=== PATIENT | female | born 1945 | race Caucasian/White ===

== ENCOUNTER 2018-06-23 00:59 | Outpatient (CLI) | payer MEDICARE, BC, SELFPAY ==
--- NOTE | 2018-06-23 11:30 | DI.MAMMO_ITS ---
SYMPTOMS/DIAGNOSIS: SCREENING, Z12.31 MAMMOGRAM: Mammograms were interpreted according to the usual protocol including computer analysis with CAD system, tomosynthesis and C view imaging. The breast tissue is radiodense. Numerous fibronodular opacities are demonstrated particularly in the left breast. There is no dominant mass. There are no suspicious calcifications. When compared with previous studies, there is some increased prominence of the asymmetric densities in the upper outer quadrant of the left breast. The possibility of interval development a malignancy lesion could not be excluded in this patient and further evaluation with mediolateral and craniocaudad compression spot films and ultrasound is recommended. Category 0. Breast density Category C. MQSA ASSESSMENT OF FINDINGS: Incomplete: Needs additional imaging evaluation. Category 0. Patient will receive a letter notifying them of these results. Bi-RADS category C. The breasts are heterogeneously dense, which may obscure small masses.
== END 2018-06-23 01:19 ==
PROVIDERS: PCP Internal Medicine; Visit Provider Nurse Practitioner Family
DX: Z12.31 Encounter for screening mammogram for malignant neoplasm of breast (principal); R92.8 Other abnormal and inconclusive findings on diagnostic imaging of breast
CPT/HCPCS: 77063; 77067

== ENCOUNTER 2018-06-30 01:04 | Outpatient (CLI) | payer MEDICARE, BC, SELFPAY ==
--- NOTE | 2018-06-30 15:18 | DI.COMBO_ITS ---
SYMPTOMS/DIAGNOSIS: F/U ABNORMAL MAMMO, ASYMMETRIC DENSITIES IN UPPER LEFT BREAST, R92.8 ADDITIONAL VIEWS OF THE LEFT BREAST AND LEFT BREAST ULTRASOUND: Additional images are interpreted according to the usual protocol including tomosynthesis and 2D imaging. Additional views of the left breast fail to show a persistent discrete mass. Breast density C. A left breast ultrasound was performed. Upper outer quadrant was evaluated sonographically. No cystic or solid masses are seen. IMPRESSION: No definite evidence for malignancy. A six-month follow-up left mammogram is requested for reevaluation. Category 3. The findings were discussed with the patient on the date of the examination. MQSA ASSESSMENT OF FINDINGS: Probably benign. Six month follow-up recommended. Category 3. Patient will receive a letter notifying them of these results. Bi-RADS category C. The breasts are heterogeneously dense, which may obscure small masses.
== END 2018-06-30 01:24 ==
PROVIDERS: PCP Internal Medicine; Visit Provider Nurse Practitioner Family
DX: Z12.31 Encounter for screening mammogram for malignant neoplasm of breast (principal); R92.8 Other abnormal and inconclusive findings on diagnostic imaging of breast; N64.59 Other signs and symptoms in breast
CPT/HCPCS: 76642; 77063; 77067

== ENCOUNTER 2019-01-03 00:08 | Outpatient (CLI) | payer MEDICARE, BC, SELFPAY ==
--- NOTE | 2019-01-03 09:10 | DI.MAMMO_ITS ---
SYMPTOM/DIAGNOSIS: ABNORMAL MAMMO LEFT BREAST R92.8 MAMMOGRAM: 01/03/19 RIGHT BREAST Mammograms were interpreted according to the usual protocol including computer analysis with CAD system, tomosynthesis and C view imaging. Today's mammogram was obtained to follow a questionable area of asymmetric density seen in the upper outer quadrant of left breast on previous mammogram of May 2018. No mass or clumped microcalcification seen. No significant interval change in comparison with previous examinations including May 2018. CONCLUSION: No specific evidence of malignancy at this time. I would suggest that routine screening examinations resume with a bilateral mammogram in 6 months. Category 3, breast density category C. MQSA ASSESSMENT OF FINDINGS: Probably benign. Six month follow-up recommended. Category 3. Patient will receive a letter notifying them of these results. Bi-RADS category C. The breasts are heterogeneously dense, which may obscure small masses.
== END 2019-01-03 00:28 ==
PROVIDERS: PCP Internal Medicine; Visit Provider Nurse Practitioner Family
DX: Z12.31 Encounter for screening mammogram for malignant neoplasm of breast (principal); R92.8 Other abnormal and inconclusive findings on diagnostic imaging of breast; N64.59 Other signs and symptoms in breast
CPT/HCPCS: 77061; 77065; G0279

== ENCOUNTER 2019-01-19 08:39 | Outpatient (REF) | payer MEDICARE, BC, SELFPAY ==
[2019-01-19 10:52] LABS: Abs Immature Grans 0.01 k/cumm (0.0-0.09); Absolute Basophil Count 0.02 k/cumm (0.0-0.2); Absolute Eosinophil Count 0.09 k/cumm (0.0-0.7); Absolute Lymphocyte Count 1.39 k/cumm (1.2-3.4); Absolute Monocyte Count 0.27 k/cumm (0.11-0.7); Absolute Neutrophil Count 2.51 k/cumm (1.2-6.7); Basophils % 0.5; Eosinophils % 2.1; HCT 40.7 % (36.0-46.0); HGB 13.7 g/dL (12.0-15.5); Immature Grans % 0.2; Lymphocytes % 32.4; Mean Corp. HGB Concentration 33.7 g/dL (32.0-36.0); Mean Corpuscular Hemoglobin 32.7 pg (27.0-33.0); Mean Corpuscular Volume 97.1 fL (80-95); Mean Platelet Volume 9.2 fL (8.0-11.0); Monocytes % 6.3; Neutrophils % 58.5; Platelet Count 249 x1000/uL (130-400); RBC 4.19 m/cumm (4.00-5.20); RBC Distribution Width 12.3 % (11.7-14.6); White Blood Cell Count 4.29 k/cumm (4.4-10.8)
[2019-01-19 12:49] LABS: Anion Gap 9.2 mmol/L (3-11); BUN 17 mg/dL (7-18); CO2 28.8 mmol/L (21.0-32.0); CREATININE 0.76 mg/dL (0.55-1.02); Calculated LDL 192 mg/dL; Chloride 103 mmol/L (98-107); Cholesterol 281 mg/dL (50-200); Glucose 89 mg/dL (70-100); HDL Cholesterol 69 mg/dL (40-60); Potassium 4.8 mmol/L (3.5-5.1); Sodium 141 mmol/L (136-145); Triglyceride 100 mg/dL (30-150)
[2019-01-19 13:09] LABS: Calcium 9.1 mg/dL (8.5-10.1)
== END 2019-01-19 08:59 ==
LOC: NCHCN 08:39
PROVIDERS: PCP Internal Medicine; Visit Provider Family Medicine
DX: E78.5 Hyperlipidemia, unspecified (principal); D72.819 Decreased white blood cell count, unspecified
CPT/HCPCS: 80048; 80061; 83721; 85025

== ENCOUNTER 2019-04-04 18:55 | Inpatient (IN) | payer MEDICARE, BC, SELFPAY ==
[2019-04-04] VITALS (20 sets, daily range): BP systolic 111–130; BP diastolic 62–89; PULSE 64–100; RESP 8–36; TEMP 36.6–36.7; O2SAT 90–96
--- NOTE | 2019-04-04 19:37 | DI.RAD_ITS ---
EXAM: XR CHEST 2V PA LATERAL INDICATION: chest pain. COMPARISON: CHEST 2 VIEWS PA,LAT from 08/05/2015 TECHNIQUE: 2D digital imaging was performed. FINDINGS: The lungs are well expanded and free of infiltrate. There is no pleural effusion cardiovascular stru ctures are intact. IMPRESSION: No evidence acute cardiopulmonary disease.
--- NOTE | 2019-04-04 19:38 | W.ED.GENAD ---
Discharge Plan Disposition Patient Disposition: [facility] INPATIENT Condition: Fair Discharge Details Chief Complaint: Chest Pain Clinical Impression: Chest pain Admit Date/Time: 04/06/19 16:39 Admit Provider: Kermit Ontiveros Attending Provider: Juanita Ferro Primary Care Provider: Clinton Corley ED Provider: Yosi Hewitt Hospital Course Hospital Course: Ms Godwin is a 73 year old female with PMHx of hyperlipidemia who was admitted to [facility] on 04/04/19 after an episode of exertional chest discomfort with feelings of shortness of breath, dizziness, and disorientation while walking a few steps up an incline with her dog. She normally walks 2 miles a day, so this discomfort was quite unusual for her. Her troponins were negative, and her EKG did not reveal acute ischemic changes. She was started on aspirin and a statin. On 04/05/19, she had an episode of 14 beats of Vtach while sitting in a chair, asymptomatic. Her echo revealed EF of 55-60%, hypokinesis of the entire anteroseptal and inferoseptal regions. During her exercise nuclear stress test, done on 04/06/19, the patient developed chest discomfort and shortness of breath at the same time as having Vtach at the rate of 150's for about 15 beats. The discomfort resolved with rest. A recommendation for transfer for a cardiac cath was made. The patient was started on heparin gtt. Her repeat troponin is pending at the time of this document being written. She is hemodynamically stable for transfer to [facility] for a cardiac cath where she was accepted by Dr De Santiago of cardiology. Care for patient as well as preparation of her transfer paperwork took 60 minutes on the day of transfer. We appreciate the assistance of the [facility] team. Discharge Data Discharge Date/Time-TO BE ENTERED AT DEPARTURE: 04/04/19 21:55 Medical Decision Making <Yosi Hewitt MD - Last Filed: 04/25/19 02:31> 19:43 --73-year-old female with history of hyperlipidemia, father with heart disease, here with exertional chest pressure this afternoon at 1700, now with continued abnormal sensation in her chest. Patient is saturating in mid 90s. She is not tachypneic and not tachycardic. Normotensive. Consider ACS. Screening ECG was reviewed and interpreted by me: Sinus rhythm 84 bpm, normal axis, no STEMI, nondiagnostic. Plan to check troponin. Patient is low risk by Wells criteria for pulmonary embolism. I will check a d-dimer. Consider less likely pneumothorax. Plan to obtain chest x-ray. 20:20 --chest x-ray reviewed and interpreted by radiology: No acute findings. Initial troponin negative. D-dimer pending. Will order aspirin. --D-dimer negative. I called and spoke with Dr. Ontiveros who will admit the patient for serial enzymes and rule out acs. <Cristi Bennett MD - Last Filed: 04/05/19 06:40> Patient admitted to hospitalist by Dr. Hewitt. HPI <Yosi Hewitt MD - Last Filed: 04/25/19 02:31> General Mode of arrival: ambulatory. Date/Time Provider Initiated Documentation: 04/04/19 19:11. Limitations to Documentation: no limitations. Information obtained by: patient. HPI Narrative: 73-year-old female with history of hyperlipidemia, family history of heart disease in father, here with chief complaint of chest pain. Patient notes chest pain started today after physical exertion. She notes that she was walking up an embankment and when she got to the top she felt a pressure-like sensation that felt like something pushing down in her chest. Discomfort was moderate to severe and lasted approximately 2 minutes and then resolved with rest. This occurred at about 5 PM. Since that time she notes that her chest does not hurt but that it just does not feel quite right. She had some associated mild shortness of breath with this episode. Of note, she does state that she is been somewhat fatigued today with decreased energy. Patient denies new or worsening leg swelling. No calf pain. No recent long distance travel. No recent surgery. She has had a mild cough recently. No fevers. Related Data Home Medications Medication Instructions Recorded Confirmed multivitamin [Daily Multi-Vitamin] 1 tab PO DAILY 05/20/15 04/04/19 aspirin 325 mg PO DAILY #0 tab 04/06/19 atorvastatin [Lipitor] 40 mg PO QPM #0 tab 04/06/19 heparin (porcine) in 5 % dex 25,000 units IV INFUSION #0 ml 04/06/19 metoprolol tartrate 12.5 mg PO BID #0 tab 04/06/19 Previous Rx's Medication Instructions Recorded aspirin 325 mg PO DAILY #0 tab 04/06/19 atorvastatin [Lipitor] 40 mg PO QPM #0 tab 04/06/19 heparin (porcine) in 5 % dex 25,000 units IV INFUSION #0 ml 04/06/19 metoprolol tartrate 12.5 mg PO BID #0 tab 04/06/19 Allergies Allergy/AdvReac Type Severity Reaction Status Date / Time acetaminophen [From Drkenneth] AdvReac neuropathy Unverified 04/04/19 19:04 chlorpheniramine AdvReac neuropathy Unverified 04/04/19 19:04 [From Kenn] oxymetazoline HCl AdvReac neuropathy Unverified 04/04/19 19:04 [From Kenn] pheniramine maleate AdvReac neuropathy Unverified 04/04/19 19:04 [From Kenn] phenylephrine HCl AdvReac neuropathy Unverified 04/04/19 19:04 [From Kenn] pseudoephedrine HCl AdvReac neuropathy Unverified 04/04/19 19:04 [From Kenn] General Stated Complaint: Chest Pain EZEQUIEL: 2 Review of Systems <Yosi Hewitt MD - Last Filed: 04/25/19 02:31> Review of Systems ROS Unobtainable: All systems reviewed & are unremarkable except as noted in HPI and below Constitutional Constitutional: Denies fever(s) Cardiovascular Cardiovascular: Reports as per HPI Respiratory Respiratory: Reports as per HPI Gastrointestinal Gastrointestinal: Denies abdominal pain PFSH <Yosi Hewitt MD - Last Filed: 04/25/19 02:31> Medical History Hyperlipidemia Obesity Osteoarthritis Varicosities of leg Surgical History Colonoscopy - MAC (05/26/17) Social History Smoking/Tobacco Use Status: Never Drug use: Never Do you feel safe at home: Yes Do you feel safe in your relationship?: Yes Exam <Yosi Hewitt MD - Last Filed: 04/25/19 02:31> Const General: cooperative and no acute distress HENMT Head: normocephalic Mouth: moist mucous membranes Eyes Conjunctivae: normal conjunctivae Sclera: normal sclerae Neck Neck: trachea midline and supple Resp Auscultation: clear to auscultation bilaterally, no rales, no rhonchi and no wheezes Cardio Jugular venous pressure: no JVD Rate: regular rate and not tachycardic Rhythm: regular rhythm Heart Sounds: no click, no gallops, no murmurs and no rubs GI Palpation: soft, not firm, no guarding, no masses, not rigid and nontender Skin General skin exam: no rashes or lesions noted Neuro General: alert, awake, oriented x3 and tone normal Extrem General: no calf tenderness and no edema Psych Appearance: grossly normal Mental Status: mental status grossly normal Course <Yosi Hewitt MD - Last Filed: 04/25/19 02:31> Vital Signs Vital signs: Vital Signs Temperature 36.6 C 04/04/19 18:59 Pulse 88 04/04/19 18:59 Respiratory Rate 18 04/04/19 18:59 Blood Pressure 130/89 04/04/19 18:59 Pulse Oximetry 95 04/04/19 18:59 Temperature 36.6 C 04/04/19 18:59 Pulse 88 04/04/19 18:59 Respiratory Rate 16 04/04/19 19:17 Respiratory Effort 04/04/19 19:17 Respiratory Depth Normal 04/04/19 19:17 Respiratory Pattern Normal 04/04/19 19:17 Blood Pressure 130/89 04/04/19 18:59 Blood Pressure Position Sitting 04/04/19 18:59 Pulse Oximetry 95 04/04/19 18:59 Oxygen Delivery Method Room Air 04/04/19 18:59 Oxygen Flow Rate 0 04/04/19 18:59 End Tidal Co2 3 04/04/19 18:59
[2019-04-04 19:53] LABS: Abs Immature Grans 0.02 k/cumm (0.0-0.09); Absolute Basophil Count 0.03 k/cumm (0.0-0.2); Absolute Eosinophil Count 0.11 k/cumm (0.0-0.7); Absolute Lymphocyte Count 2.23 k/cumm (1.2-3.4); Absolute Monocyte Count 0.41 k/cumm (0.11-0.7); Absolute Neutrophil Count 2.73 k/cumm (1.2-6.7); Basophils % 0.5; HCT 41.7 % (36.0-46.0); HGB 13.7 g/dL (12.0-15.5); Immature Grans % 0.4; Lymphocytes % 40.3; Mean Corp. HGB Concentration 32.9 g/dL (32.0-36.0); Mean Corpuscular Hemoglobin 32.2 pg (27.0-33.0); Mean Corpuscular Volume 97.9 fL (80-95); Monocytes % 7.4; Neutrophils % 49.4; Platelet Count 264 x1000/uL (130-400); RBC 4.26 m/cumm (4.00-5.20); White Blood Cell Count 5.53 k/cumm (4.4-10.8)
[2019-04-04 20:05] LABS: PTT Activated 24.7 sec (21.0-31.4)
[2019-04-04 20:06] LABS: ALT 23 U/L (14-59); AST 22 U/L (15-37); Albumin 4.2 g/dL (3.4-5.0); Alkaline Phosphatase 75 U/L (46-116); BUN 21 mg/dL (7-18); Bilirubin, Total 0.3 mg/dL (0.2-1.0); CREATININE 1.11 mg/dL (0.55-1.02); Calcium 9.1 mg/dL (8.5-10.1); Chloride 101 mmol/L (98-107); Estimated GFR 48.05 (mL/min/1.73m2); Glucose 104 mg/dL (70-100); Potassium 4.2 mmol/L (3.5-5.1); Sodium 139 mmol/L (136-145); Total Protein 7.9 g/dL (6.4-8.2)
[2019-04-04 20:08] LABS: Troponin I < 0.05 ng/mL (0.00-0.06)
--- NOTE | 2019-04-04 20:11 | DI.VRAD_ITS ---
PROCEDURE INFORMATION: Exam: XR Chest, 2 Views Exam date and time: 04/04/2019 7:39 PM Clinical history: 73 years old, female; Shortness of breath; Type not specified; Patient HX: SOB, chest pain since yesterday TECHNIQUE: Imaging protocol: XR of the chest Views: 2 views. COMPARISON: CR CHEST 2 VIEWS PA,LAT 08/05/2015 3:54 PM FINDINGS: Lungs: Unremarkable. No consolidation. Pleural space: Unremarkable. No pleural effusion. No pneumothorax. Heart/Mediastinum: Unremarkable. No cardiomegaly. Bones/joints: Unremarkable. IMPRESSION: No acute findings. Dictated and Authenticated by: Tyson Nunez MD. Ordering:KAROL Deluca MD
[2019-04-04 20:37] LABS: D-Dimer 449 ng/mlFEU (<500)
[2019-04-04] MEDS: Aspirin 325 MG TAB PO (20:41)
[2019-04-04] MEDS: Normal Saline Flush 10 ML SYR IVP (20:42)
--- NOTE | 2019-04-04 21:07 | W.PM.HP.N ---
Date of service: 04/04/19 Time of Service: 21:08 Assessment and Plan Assessment and plan (1) Chest pain: Status: Acute Assessment and plan: Chest pain, fairly good story for possible ACS (new onset angina). No evidence of active ischemia. Will trend enzymes. If negative would advise ETT. History of Present Illness History of Present Illness Chief Complaint: Chest pain Narrative: 73 female comes in with episode of exertional CP (heaviness) earlier this evening, occurred while walking dog up a modest incline, and associated with SOB. No nausea or diaphoresis. resolved with rest, though unclear if this was within a few minutes or more a half hour. At any rate came to ER, initial w/u negative, including normal CXR, normal EKG and negative troponin. No recurrence of pain. Admitted for further management. Did receive 325 ASA here in ER. Review of Systems Review of Systems ROS Unobtainable: All systems reviewed & are unremarkable except as noted in HPI and below PFSH Medical History Hyperlipidemia Obesity Osteoarthritis Varicosities of leg Surgical History Colonoscopy - MAC (05/26/17) Social History Smoking/Tobacco Use Status: Never Drug use: Never Do you feel safe at home: Yes Do you feel safe in your relationship?: Yes Meds Home Medications and Allergies Home Medications Medication Instructions Recorded Confirmed Type multivitamin [Multi-Vitamin Daily] 1 tab PO DAILY 05/20/15 04/04/19 History ibuprofen [Motrin Ib] 200 mg PO DAILY PRN 11/19/16 04/04/19 History Allergies Allergy/AdvReac Type Severity Reaction Status Date / Time acetaminophen [From Kenn] AdvReac neuropathy Unverified 04/04/19 19:04 chlorpheniramine AdvReac neuropathy Unverified 04/04/19 19:04 [From Kenn] oxymetazoline HCl AdvReac neuropathy Unverified 04/04/19 19:04 [From Kenn] pheniramine maleate AdvReac neuropathy Unverified 04/04/19 19:04 [From Kenn] phenylephrine HCl AdvReac neuropathy Unverified 04/04/19 19:04 [From Kenn] pseudoephedrine HCl AdvReac neuropathy Unverified 04/04/19 19:04 [From Kenn] Exam Narrative Exam Narrative: 119/66, 77, 36.7, 10-15, 96% RA. HEENT AT/NC; neck supple, no JVD; lungs clear; heart RRR w/O m//r/g; abdomen soft NT; extremities pulse 2+/=; neuro non-focal Results Labs Result diagrams: 04/04/19 19:15 04/04/19 19:15 Labs: Laboratory Results - last 24 hr 04/04/19 04/04/19 04/04/19 19:15 19:15 19:15 WBC 5.53 RBC 4.26 Hgb 13.7 Hct 41.7 MCV 97.9 H MCH 32.2 MCHC 32.9 RDW 12.0 Plt Count 264 MPV 9.0 Immature Gran % 0.4 Neutrophils % 49.4 Lymphocytes % 40.3 Monocytes % 7.4 Eosinophils % 2.0 Basophils % 0.5 Absolute Neutrophils 2.73 Absolute Lymphocytes 2.23 Absolute Monocytes 0.41 Absolute Eosinophils 0.11 Absolute Basophils 0.03 APTT 24.7 D-Dimer 449 Sodium 139 Potassium 4.2 Chloride 101 Carbon Dioxide 29.0 Anion Gap 9.0 BUN 21 H Creatinine 1.11 H Estimated GFR/1.73 m2 48.05 Glucose 104 H Calcium 9.1 Total Bilirubin 0.3 AST 22 ALT 23 Alkaline Phosphatase 75 Troponin I < 0.05 Total Protein 7.9 Albumin 4.2 Last Vital Signs Temp 36.7 C 04/04/19 20:28 Pulse 84 04/04/19 20:30 Resp 10 L 04/04/19 20:50 BP 119/66 04/04/19 20:30 Pulse Ox 96 04/04/19 20:50
[2019-04-04 23:12] LABS: Troponin I < 0.05 ng/mL (0.00-0.06)
[2019-04-05] VITALS (36 sets, daily range): BP systolic 107–130; BP diastolic 65–86; PULSE 60–115; RESP 9–26; TEMP 36.9–37; O2SAT 92–95
[2019-04-05 07:12] LABS: Troponin I < 0.05 ng/mL (0.00-0.06)
--- NOTE | 2019-04-05 08:51 | INITIAL_ITS ---
Care Management Initial Assess REASON FOR HOSPITALIZATION:: Chest Pain PAST MEDICAL HISTORY/PAST SURGICAL HISTORY:: Hyperlipidemia, Obesity, Osteoarthritisi, varicosities of leg, colonoscopy PREVIOUS FUNCTIONAL STATUS/SOCIAL/FAMILY SUPPORTS:: Leonie resides in [facility] with her , Mason. 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 She enjoys gardening, caring for her two horses and two boarding horses as well as her dogs. Her , Mason is a retired fire truck driver and both are independent in the community. Their daughter, Brinda resides in [place], [place] and their son resides in [facility]. Leonie reports seeing him a few times a year. CURRENT FUNCTIONAL STATUS:: Leonie is sitting up in her chair when meets with her. She fully engages in converstation and is knowledgable about her treatment plan. ADVANCE DIRECTIVES:: None on file at [facility]. Has patient been provided with information about the portal?: Yes CODE STATUS:: Full Code INSURANCE COVERAGE / FINANCIAL ISSUES:: Medicaid CURRENT HOME/COMMUNITY SERVICES/EQUIPMENT:: No current services or equipment at this time. PRIMARY CARE PHYSICIAN:: Clinton Corley MD POTENTIAL DISCHARGE NEEDS:: ECHO, possible [facility] outpatient appointment. PATIENT/FAMILY EDUCATION NEEDS:: Review discharge instructions, discuss Ask Me Three. ANTICIPATED BARRIERS TO DISCHARGE:: None identified. TRANSPORTATION:: Via private vehicle with her , Mason. PLAN:: Leonie will return home when ready per . She will follow up with her PCP and outpatient follow up plan as prescribed. She will transport via private vehicle with her , Mason.
--- NOTE | 2019-04-05 08:53 | W.PM.PROGNOT ---
Date of Service Date of service: 04/05/19 Time of Service: 08:53 Assessment and Plan Assessment and plan (1) Chest pain: Status: Acute Assessment and plan: Exertional. Talking with patient, she also felt dizzy and disoriented when this occured. Given the fact that the patient had a 14 beat run of Vtach, no electrolyte abnormalities on labs, negative troponins, I think it is important to look at the echo, and if there are wall motion abnormalities, bypass stress test and go straight to cardiac cath. Attempting to get the echo today. For now, continue asa, add statin. Continue to monitor on tele. (2) Nonsustained ventricular tachycardia: Status: Acute Assessment and plan: Lyes ok. Await echo read. Continue to monitor on tele. May require a cardiac cath and, if recurs/is sustained, an AICD. (3) Dyslipidemia: Status: Acute Assessment and plan: Start atorvastatin (4) DVT prophylaxis: Status: Acute Assessment and plan: Enoxaparin (5) Discharge planning issues: Status: Acute Assessment and plan: Full code Dispo depends on cardiac workup. Subjective Subjective Interval history since last seen: Admitted with chest heaviness. in SR 60-70's. No more CP since arrival. Trops neg. VSS. No cough. Had an episode of 14 beats of Vtach while awake, asymptomatic. Exam Narrative Exam Narrative: General: very pleasant elderly female, A&ox3, sitting comfortably in a chair HEENT: EOMI, MMM Heart: RRR, no m/r/g Lungs; CTAB GI: abdomen is soft, nontender, nondistended Extremities: no e/c/c BLE's Objective Objective Clinical Data: Abnormal lab results 04/04/19 04/04/19 Range/Units 19:15 19:15 MCV 97.9 H (80-95) fL BUN 21 H (7-18) mg/dL Creatinine 1.11 H (0.55-1.02) mg/dL Glucose 104 H (70-100) mg/dL Vital Signs Temperature 36.7 C 04/04/19 21:45 Temperature Source Temporal Artery Scan 04/04/19 21:45 Pulse 77 04/05/19 00:06 Pulse 69 04/05/19 00:06 Respiratory Rate 17 04/05/19 00:06 Respiratory Effort Non-Labored 04/04/19 21:45 Respiratory Depth Normal 04/04/19 21:45 Respiratory Pattern Normal 04/04/19 21:45 Blood Pressure 118/86 04/05/19 00:06 Blood Pressure Mean 94 04/05/19 00:06 Blood Pressure Position Sitting 04/04/19 18:59 Pulse Oximetry 95 04/04/19 21:45 Oxygen Delivery Method Room Air 04/04/19 21:45 Oxygen Flow Rate 0 04/04/19 21:45 End Tidal Co2 3 04/04/19 18:59 Pain Level 0 04/04/19 21:45 Intake & Output 04/04/19 04/04/19 04/05/19 11:59 23:59 11:59 Intake Total 400 / 400 Output Total 500 / 500 500 / 500 Balance -500 / -500 -100 / -100 Weight 70.6 kg 70.2 kg Intake: Oral 400 / 400 Output: Urine 500 / 500 500 / 500 Other: Urine Color Yellow Yellow Urine Appearance Clear Clear Voiding Methods Bedside Commode Laboratory Results WBC 5.53 k/cumm (4.4-10.8) 04/04/19 19:15 RBC 4.26 m/cumm (4.00-5.20) 04/04/19 19:15 Hgb 13.7 g/dL (12.0-15.5) 04/04/19 19:15 Hct 41.7 % (36.0-46.0) 04/04/19 19:15 MCV 97.9 fL (80-95) H 04/04/19 19:15 MCH 32.2 pg (27.0-33.0) 04/04/19 19:15 MCHC 32.9 g/dL (32.0-36.0) 04/04/19 19:15 RDW 12.0 % (11.7-14.6) 04/04/19 19:15 Plt Count 264 x1000/uL (130-400) 04/04/19 19:15 MPV 9.0 fL (8.0-11.0) 04/04/19 19:15 Immature Gran % 0.4 04/04/19 19:15 Neutrophils % 49.4 04/04/19 19:15 Lymphocytes % 40.3 04/04/19 19:15 Monocytes % 7.4 04/04/19 19:15 Eosinophils % 2.0 04/04/19 19:15 Basophils % 0.5 04/04/19 19:15 Absolute Neutrophils 2.73 k/cumm (1.2-6.7) 04/04/19 19:15 Absolute Lymphocytes 2.23 k/cumm (1.2-3.4) 04/04/19 19:15 Absolute Monocytes 0.41 k/cumm (0.11-0.7) 04/04/19 19:15 Absolute Eosinophils 0.11 k/cumm (0.0-0.7) 04/04/19 19:15 Absolute Basophils 0.03 k/cumm (0.0-0.2) 04/04/19 19:15 APTT 24.7 sec (21.0-31.4) 04/04/19 19:15 D-Dimer 449 ng/mlFEU (<500) 04/04/19 19:15 Sodium 139 mmol/L (136-145) 04/04/19 19:15 Potassium 4.2 mmol/L (3.5-5.1) 04/04/19 19:15 Chloride 101 mmol/L (98-107) 04/04/19 19:15 Carbon Dioxide 29.0 mmol/L (21.0-32.0) 04/04/19 19:15 Anion Gap 9.0 mmol/L (3-11) 04/04/19 19:15 BUN 21 mg/dL (7-18) H 04/04/19 19:15 Creatinine 1.11 mg/dL (0.55-1.02) H 04/04/19 19:15 Estimated GFR/1.73 m2 48.05 (mL/min/1.73m2) 04/04/19 19:15 Glucose 104 mg/dL (70-100) H 04/04/19 19:15 Calcium 9.1 mg/dL (8.5-10.1) 04/04/19 19:15 Total Bilirubin 0.3 mg/dL (0.2-1.0) 04/04/19 19:15 AST 22 U/L (15-37) 04/04/19 19:15 ALT 23 U/L (14-59) 04/04/19 19:15 Alkaline Phosphatase 75 U/L (46-116) 04/04/19 19:15 Troponin I < 0.05 ng/mL (0.00-0.06) 04/05/19 06:20 Total Protein 7.9 g/dL (6.4-8.2) 04/04/19 19:15 Albumin 4.2 g/dL (3.4-5.0) 04/04/19 19:15
[2019-04-05 11:07] LABS: Anion Gap 10.6 mmol/L (3-11); BUN 14 mg/dL (7-18); CO2 26.4 mmol/L (21.0-32.0); Chloride 106 mmol/L (98-107); FREE T4 0.87 ng/dL (0.76-1.46); Glucose 95 mg/dL (70-100); Magnesium 2.3 mg/dL (1.8-2.4); Potassium 4.3 mmol/L (3.5-5.1); Sodium 143 mmol/L (136-145); TSH 3.09 uIU/mL (0.36-3.74)
[2019-04-05 11:21] LABS: Hemoglobin A1C 5.7 % (4.5-6.2)
[2019-04-05 11:44] LABS: Calculated LDL 162 mg/dL; Cholesterol 245 mg/dL (50-200); HDL Cholesterol 64 mg/dL (40-60); Triglyceride 95 mg/dL (30-150)
[2019-04-05] MEDS: Aspirin E.C. 325 MG TABEC PO (13:46)
[2019-04-05] MEDS: Enoxaparin 40 MG/0.4 ML SYR SC (14:45)
--- NOTE | 2019-04-05 15:36 | DI.US_ITS ---
EXAM: US EXTREMITY VENOUS BI CLINICAL HISTORY: edema BLE's, concern for DVT. TECHNIQUE: Ultrasound performed using standard protocol. COMPARISON: US breast LT limited from 06/30/2018 FINDINGS: A bilateral leg ultrasound was obtained. There is no evidence of right or left DVT.
--- NOTE | 2019-04-05 16:07 | DI.US_ITS ---
APPROVED REPORT EXAM: Comprehensive 2D, Doppler, and color-flow Echocardiogram Patient Location: In-Patient Health Care Assistant: TINO Faith (AE) Indications: chest pain ? WMA Left Ventricle The left ventricle is normal size. The left ventricular systolic function is normal. The left ventric ular ejection fraction is within the normal range. There is normal left ventricular wall thickness. R egional wall motion abnormalities are noted: Hypokinesis of the entire anteroseptal and inferoseptal region. All other segments are within normal limits There is grade 1 diastolic dysfunction LVEF is 55 -60%. Right Ventricle The right ventricle is normal size. The right ventricular systolic function is normal. Atria The left atrium size is normal. The right atrium size is normal. Aortic Valve The aortic valve is normal in structure. There is no aortic valvular stenosis. Mild aortic regurgitat ion. Mitral Valve The mitral valve is normal in structure. No evidence of mitral valve stenosis. There is no mitral tyler ve regurgitation noted. Tricuspid Valve The tricuspid valve is normal in structure. Mild tricuspid regurgitation. TR V-max=3.1 m/s TR peak gr adient=38.3 mmHg RVSP mildly elevated but likely normal for age. Great Vessels The aortic root is normal in size. The IVC is normal in size and collapses >50% with inspiration. Pericardium There is no pericardial effusion. 2D Dimensions IVSd 1.0 cm F: 0.6-1.0 LA Volume Index A4C 20.0 mL/m2 PWd 1.2 cm F: 0.6 - 1.0 LA Area A4C 14.0 cm2 LVDd 3.8 cm F: 3.9 - 5.3 LVDs 2.6 cm F: 2.2 - 3.5 Aortic Root 3.2 cm F: 2.7 - 3.3 LVOT 1.8 cm (M/F) 1.5-2.5 Ascending Aorta 3.7 cm F: 2.3 - 3.1 LVEF (Patel's) 58.8 % F: 54 - 74 FS 30.1 % LV Diastology E Decel Time 303.0 (160-240 msec) E/A Ratio 0.5 MED E' 0.0 (<0.07 m/s) LV E/e MED 8.9 (>14) LAT E' 0.1 (<0.1 m/s) LV E/e LAT 6.4 (>14) Aortic Valve LVOT Peak Ajith. 0.8 m/s LVOT Peak Gr. 2.5 mmHg LVOT Mean Gr. 1.6 mmHg LVOT VTI 0.2 m PARAMJIT (VTI) 2.3 (2.5-4.5 cm2) PARAMJIT (VTI) Index 1.3 cm/m2 Mitral Valve MV A Velocity 0.7 (0.4-1.3 m/s) E/A Ratio 0.5 MV Decel. Time 302.5 (160-240 msec) MV PHT 87.7 msec MVA PHT 2.5 cm2 Pulmonary Valve MD End VMAX 111.8 cm/s Tricuspid Valve TR P. Velocity 3.1 m/s TR P. Gradient 38.3 mmHg Conclusion Left Ventricle : The left ventricle is normal size. There is normal left ventricular wall thickness. There is grade 1 diastolic dysfunction. LVEF is 55-60%. Regional wall motion abnormalities are noted: Hypokinesis of the entire anteroseptal and inferoseptal regions. All other segments are within normal limits Right Ventricle : The right ventricle is normal size. The right ventricular systolic function is norm al. Atria : The left atrium size is normal. The right atrium size is normal. Aortic Valve : The aortic valve is normal in structure. There is no aortic valvular stenosis. Mild ao rtic regurgitation. Mitral Valve : The mitral valve is normal in structure. There is no mitral valve regurgitation noted. No evidence of mitral valve stenosis. Tricuspid Valve : The tricuspid valve is normal in structure. Mild tricuspid regurgitation. TR V-max= 3.1 m/s TR peak gradient=38.3 mmHg RVSP mildly elevated but likely normal for age. Great Vessels : The aortic root is normal in size. The IVC is normal in size and collapses >50% with inspiration. Pericardium : There is no pericardial effusion.
--- NOTE | 2019-04-05 16:50 | PHARADMIT ---
Admission Pharmacy Clinical Review Chest Pain Code Status Full Code Current Weight 70.2 kg Renally Cleared and Narrow Therapeutic Index Meds CrCl ~47.3 QTc Value / Action Taken QTc 416 BP Control, Fever BP 115/67 Electrolytes reviewed Na 143, K+ 4.3, Mag 2.3 DVT Prophylaxis LMWH 40mg q2h Opiate Usage / Scheduled Bowel Regimen Ordered Plt/SCr for Heparin / Enoxaparin Plt 264 Scr 0.9 INR for Warfarin H/H stable, WBC/Bands H/H 13.7/41.7, WBC 5.53 Antibiotic appropriateness Cultures and Sensitivities Surgical ABX d/c within 24 hr DM control / Insulin Dosing Heart Failure (Check EF%) (SIN's, B-Block, Diuretics) IV to PO Switch Home Meds Reviewed Home Meds Not Ordered Comments ASA, atorvastatin started Awaiting ECHO
[2019-04-05] MEDS: Atorvastatin 40 MG TAB PO (19:41)
[2019-04-05] MEDS: Normal Saline Flush 10 ML SYR IVP (19:42)
[2019-04-06] VITALS (8 sets, daily range): BP systolic 105–128; BP diastolic 63–69; PULSE 73–97; RESP 12–30; TEMP 36.4; O2SAT 94
[2019-04-06 07:07] LABS: Anion Gap 7.8 mmol/L (3-11); BUN 19 mg/dL (7-18); CO2 28.2 mmol/L (21.0-32.0); CREATININE 0.88 mg/dL (0.55-1.02); Calcium 8.9 mg/dL (8.5-10.1); Chloride 105 mmol/L (98-107); Glucose 97 mg/dL (70-100); Magnesium 2.3 mg/dL (1.8-2.4); Potassium 4.4 mmol/L (3.5-5.1); Sodium 141 mmol/L (136-145)
--- NOTE | 2019-04-06 08:48 | W.PM.PROGNOT ---
Date of Service Date of service: 04/06/19 Time of Service: 08:48 Subjective Subjective Interval history since last seen: No further episodes of Vtach. Has septal wall motion abnormalities. For stress test today. EF preserved. Objective Objective Clinical Data: Abnormal lab results 04/05/19 04/06/19 Range/Units 06:20 06:15 BUN 19 H (7-18) mg/dL Total Cholesterol 245 H (50-200) mg/dL HDL Cholesterol 64 H (40-60) mg/dL Vital Signs Temperature 36.9 C 04/05/19 19:49 Temperature Source Temporal Artery Scan 04/05/19 19:49 Pulse 66 04/05/19 23:18 Pulse Rhythm Regular 04/05/19 23:00 Pulse 69 04/05/19 23:18 Respiratory Rate 9 L 04/05/19 23:18 Respiratory Effort Non-Labored 04/05/19 23:00 Respiratory Depth Normal 04/05/19 23:00 Respiratory Pattern Normal 04/05/19 23:00 Blood Pressure 130/70 04/05/19 23:18 Blood Pressure Mean 83 04/05/19 23:18 Blood Pressure Position Sitting 04/04/19 18:59 Pulse Oximetry 92 L 04/05/19 19:52 Oxygen Delivery Method Room Air 04/05/19 19:49 Oxygen Flow Rate 0 04/05/19 19:49 End Tidal Co2 3 04/04/19 18:59 Pain Level 0 04/05/19 19:49 Intake & Output 04/05/19 04/05/19 04/06/19 11:59 23:59 11:59 Intake Total 860 / 1300 440 / 1300 Output Total 900 / 1750 850 / 1750 700 / 700 Balance -40 / -450 -410 / -450 -700 / -700 Weight 70.2 kg 69.6 kg Intake: Oral 860 / 1300 440 / 1300 Output: Urine 900 / 1750 850 / 1750 700 / 700 Other: Urine Color Yellow Yellow Yellow Urine Appearance Clear Clear Clear Urine Odor None Stool Size Small Stool Characteristics Soft Voiding Methods Bedside Commode Laboratory Results WBC 5.53 k/cumm (4.4-10.8) 04/04/19 19:15 RBC 4.26 m/cumm (4.00-5.20) 04/04/19 19:15 Hgb 13.7 g/dL (12.0-15.5) 04/04/19 19:15 Hct 41.7 % (36.0-46.0) 04/04/19 19:15 MCV 97.9 fL (80-95) H 04/04/19 19:15 MCH 32.2 pg (27.0-33.0) 04/04/19 19:15 MCHC 32.9 g/dL (32.0-36.0) 04/04/19 19:15 RDW 12.0 % (11.7-14.6) 04/04/19 19:15 Plt Count 264 x1000/uL (130-400) 04/04/19 19:15 MPV 9.0 fL (8.0-11.0) 04/04/19 19:15 Immature Gran % 0.4 04/04/19 19:15 Neutrophils % 49.4 04/04/19 19:15 Lymphocytes % 40.3 04/04/19 19:15 Monocytes % 7.4 04/04/19 19:15 Eosinophils % 2.0 04/04/19 19:15 Basophils % 0.5 04/04/19 19:15 Absolute Neutrophils 2.73 k/cumm (1.2-6.7) 04/04/19 19:15 Absolute Lymphocytes 2.23 k/cumm (1.2-3.4) 04/04/19 19:15 Absolute Monocytes 0.41 k/cumm (0.11-0.7) 04/04/19 19:15 Absolute Eosinophils 0.11 k/cumm (0.0-0.7) 04/04/19 19:15 Absolute Basophils 0.03 k/cumm (0.0-0.2) 04/04/19 19:15 APTT 24.7 sec (21.0-31.4) 04/04/19 19:15 D-Dimer 449 ng/mlFEU (<500) 04/04/19 19:15 Sodium 141 mmol/L (136-145) 04/06/19 06:15 Potassium 4.4 mmol/L (3.5-5.1) 04/06/19 06:15 Chloride 105 mmol/L (98-107) 04/06/19 06:15 Carbon Dioxide 28.2 mmol/L (21.0-32.0) 04/06/19 06:15 Anion Gap 7.8 mmol/L (3-11) 04/06/19 06:15 BUN 19 mg/dL (7-18) H 04/06/19 06:15 Creatinine 0.88 mg/dL (0.55-1.02) 04/06/19 06:15 Estimated GFR/1.73 m2 >= 60.00 (mL/min/1.73m2) 04/06/19 06:15 Glucose 97 mg/dL (70-100) 04/06/19 06:15 Hemoglobin A1c 5.7 % (4.5-6.2) 04/04/19 19:15 Calcium 8.9 mg/dL (8.5-10.1) 04/06/19 06:15 Magnesium 2.3 mg/dL (1.8-2.4) 04/06/19 06:15 Total Bilirubin 0.3 mg/dL (0.2-1.0) 04/04/19 19:15 AST 22 U/L (15-37) 04/04/19 19:15 ALT 23 U/L (14-59) 04/04/19 19:15 Alkaline Phosphatase 75 U/L (46-116) 04/04/19 19:15 Troponin I < 0.05 ng/mL (0.00-0.06) 04/05/19 06:20 Total Protein 7.9 g/dL (6.4-8.2) 04/04/19 19:15 Albumin 4.2 g/dL (3.4-5.0) 04/04/19 19:15 Triglycerides 95 mg/dL (30-150) 04/05/19 06:20 Total Cholesterol 245 mg/dL (50-200) H 04/05/19 06:20 LDL Cholesterol, Calc 162 mg/dL 04/05/19 06:20 HDL Cholesterol 64 mg/dL (40-60) H 04/05/19 06:20 TSH 3.09 uIU/mL (0.36-3.74) 04/05/19 06:20 Free T4 0.87 ng/dL (0.76-1.46) 04/05/19 06:20
[2019-04-06] MEDS: Aspirin E.C. 325 MG TABEC PO (09:21)
--- NOTE | 2019-04-06 12:00 | DI.NM_ITS ---
APPROVED REPORT Exam: Exercise Treadmill Patient Location: In-Patient Room/Bed: 222 Stress Nurse: Mona Healy RN Rhythm: Sinus Indications: Exertional chest pain. Medical History Medical History: Hyperlipidemia Allergies: Acetaminophen. Chlorpheniramine. Oxymetazoline. Phenylephrine. Pseudophedrin. Cardiac Risk Factors: FHX of CAD, Hyperlipidemia Pretest Chest Pain Characteristics: Exertional Chest pain Exercise History: Physically active Stress Test Details Test: Exercise stress testing was performed using a Michael protocol. Nuclear Acquisition: Rest Tc-99m/Stress Tc-99m 1 day Rest Isotope: Tc-99m Sestamibi. Dose: 12.0 Date: 04/06/2019 Injection Time: 1222 Stress Isotope: Tc-99m Sestamibi. Dose: 35.8 Date: 04/06/2019 Injection Time: 1440 HR Resting HR: 73 bpm Max Heart Rate (APMHR): 146 bpm Max HR Achieved: 158 bpm Target HR (85% APMHR): 124 bpm % of APMHR: 108 Recovery HR: 79 bpm HR response to stress: Accelerated HR response to stress BP Resting BP: 130/74 mmHg Max BP: 150/72 mmHg Recovery BP: 120/70 mmHg BP response to stress: Normal blood pressure response to stress. ECG Resting ECG: Sinus Rhythm, low voltage, precordial leads. Stress ECG: Sinus tachycardia with 10-15 beat runs of wide monomorphic ventricular beats. ST Change: No significan ST segment changes Arrhythmia: Non-sustained VT Recovery ECG: Sinus Rhythm Recovery ST Change: Normal Recovery Arrhythmia: Runs of Ventricular tachycardia subsided by 2 minutes recovery period Clinical Reason for Termination: Chest pain/Anginal equivalent Stress Symptoms: Chest pain, Dyspnea Exercise duration: 4 min Highest Stage Achieved: Stage 2: 2.5 mph at 12% grade. Exercise capacity: 5.81 METs Overall Exercise Capacity for Age: Average Scale: Active Angina Score: Exercise-Limiting Stress ECG Conclusion 1. The patient showed good exercise capacity 2. This represents a maximal effort study 3. The patient developed symptomatic runs of ventricular tachycardia with HR in the 150s at stage two of Michael protocol exercise. This was accompanied by chest discomfort and shortness of breath. The t est was stopped and symptoms resolved 2 minutes into recovery. 4. The stress ECG portion of the study is suggestive of ischemia MPI Conclusion The imaging portion of the study was normal. There was no TID and no wall motion abnormalities. While the imaging portion the study did not show ischemia, the significant run of VT with exercise in addition to reproduction of symptoms are concerning. This represents a positive stress test. Recommendation: Recommend proceeding to diagnostic catheterization
--- NOTE | 2019-04-06 14:48 | PDOC.CMDIS ---
Care Management Discharge Reason for Hospitalization: Chest Pain Discharge Plan: Leonie will return home when ready per MD. She will follow up with her PCP and outpatient follow up plan as prescribed. She will transport via private vehicle with her , Mason.
--- NOTE | 2019-04-06 15:14 | PDOC.CMDIS ---
LACE Index Scoring Tool - Questions: Length of Stay (in days): 2 Acuity (Admit via E.D.?): Yes E.D. Visits: 1 - Answers: Total Score: 6 Risk of Readmission: Low Risk Care Management Discharge Reason for Hospitalization: Chest Pain Discharge Plan: Leonie will return home when ready per MD. She will follow up with her PCP and outpatient follow up plan as prescribed. She will transport via private vehicle with her , Mason. Patient/Family Education Needs: Review discharge instructions, discuss Ask Me Three.
[2019-04-06] MEDS: Enoxaparin 40 MG/0.4 ML SYR SC (15:18)
--- NOTE | 2019-04-06 16:39 | DSE_ITS ---
Date of service: 04/06/19 Time of Service: 16:39 DS: Diagnosis Discharge Diagnosis (1) Chest pain: Status: Acute (2) Nonsustained ventricular tachycardia: Status: Acute (3) Dyslipidemia: Status: Acute Discharge Plan Disposition Patient Disposition: [facility] Condition: Fair Discharge Details Chief Complaint: Chest Pain Clinical Impression: Chest pain Reason For Visit: CHEST PAIN Admit Date/Time: 04/06/19 16:39 Admit Provider: Kermit Ontiveros Attending Provider: Kermit Ontiveros Primary Care Provider: Clinton Corley ED Provider: Yosi Hewitt Hospital Course Hospital Course: Ms Godwin is a 73 year old female with PMHx of hyperlipidemia who was admitted to [facility] on 04/04/19 after an episode of exertional chest discomfort with feelings of shortness of breath, dizziness, and disorientation while walking a few steps up an incline with her dog. She normally walks 2 miles a day, so this discomfort was quite unusual for her. Her troponins were negative, and her EKG did not reveal acute ischemic changes. She was started on aspirin and a statin. On 04/05/19, she had an episode of 14 beats of Vtach while sitting in a chair, asymptomatic. Her echo revealed EF of 55-60%, hypokinesis of the entire anteroseptal and inferoseptal regions. During her exercise nuclear stress test, done on 04/06/19, the patient developed chest discomfort and shortness of breath at the same time as having Vtach at the rate of 150's for about 15 beats. The discomfort resolved with rest. A recommendation for transfer for a cardiac cath was made. The patient was started on heparin gtt. Her repeat troponin is pending at the time of this document being written. She is hemodynamically stable for transfer to [facility] for a cardiac cath where she was accepted by Dr De Santiago of cardiology. Care for patient as well as preparation of her transfer paperwork took 60 minutes on the day of transfer. We appreciate the assistance of the [facility] team. Home Meds and New Rx's Prescriptions: New atorvastatin [Lipitor] 40 mg Tablet 40 mg PO QPM Qty: 0 RF: 0 aspirin 325 mg Tablet,Delayed Release (Dr/Ec) 325 mg PO DAILY Qty: 0 RF: 0 metoprolol tartrate 25 mg Tablet 12.5 mg PO BID Qty: 0 RF: 0 heparin (porcine) in 5 % dex 25,000 unit/250 mL(100 unit/mL) Parenteral Solution 25,000 units IV INFUSION Qty: 0 RF: 0 Continued multivitamin [Daily Multi-Vitamin] 1 EACH tablet 1 tab PO DAILY RF: 0 Discontinued ibuprofen [Motrin IB] 200 MG tablet 200 mg PO DAILY PRNRF: 0 Discharge Instructions Activity:: bed rest Diet:: NPO Discharge Orders Discharge Orders: Discharge Order (Routine); Ordered 04/06/19 Ordered By: Juanita Ferro DS: Summary Status at Discharge Functional status at discharge: independent ambulation Overall status at discharge: patient is not back to baseline Mental Status: mental status grossly normal Speech and Movement: speech and movement normal Mood: congruent mood Affect: normal affect Exam Narrative Exam Narrative: General: very pleasant elderly female, A&ox3, sitting comfortably in a chair HEENT: EOMI, MMM Heart: RRR, no m/r/g Lungs; CTAB GI: abdomen is soft, nontender, nondistended Extremities: no e/c/c BLE's Psych Mental Status: mental status grossly normal Speech and Movement: speech and movement normal Mood: congruent mood Affect: normal affect DS: Data Vitals/I&O Vitals and I&O: Vital Signs Temperature 36.4 C L 04/06/19 07:30 Temperature Source Temporal Artery Scan 04/06/19 07:30 Pulse 96 H 04/06/19 15:29 Pulse Rhythm Regular 04/06/19 15:29 Pulse 81 04/06/19 07:13 Respiratory Rate 22 04/06/19 07:30 Respiratory Effort Non-Labored 04/06/19 15:29 Respiratory Depth Normal 04/06/19 15:29 Respiratory Pattern Normal 04/06/19 15:29 Blood Pressure 105/63 04/06/19 07:30 Blood Pressure Mean 74 04/06/19 07:13 Blood Pressure Position Sitting 04/04/19 18:59 Pulse Oximetry 94 L 04/06/19 15:36 Oxygen Delivery Method Room Air 04/06/19 15:36 Oxygen Flow Rate 0 04/06/19 15:36 End Tidal Co2 3 04/04/19 18:59 Pain Level 0 04/05/19 19:49 Intake & Output 04/05/19 04/06/19 04/06/19 23:59 11:59 23:59 Intake Total 440 / 1300 Output Total 850 / 1750 700 / 700 Balance -410 / -450 -700 / -700 Weight 69.6 kg Intake: Oral 440 / 1300 Output: Urine 850 / 1750 700 / 700 Other: Urine Color Yellow Yellow Urine Appearance Clear Clear Clear Urine Odor None Voiding Methods Bedside Commode Data Completed and Pending Completed studies during hospitalization [Text1]: CXR 04/04/19: No evidence acute cardiopulmonary disease. Venous Doppler BLE's 04/05/19: A bilateral leg ultrasound was obtained. There is no evidence of right or left DVT. Echo 04/05/19: Left Ventricle : The left ventricle is normal size. There is normal left ventricular wall thickness. There is grade 1 diastolic dysfunction. LVEF is 55-60%. Regional wall motion abnormalities are noted: Hypokinesis of the entire anterose ptal and inferoseptal regions. All other segments are within normal limits Right Ventricle : The right ventricle is normal size. The right ventricular systolic function is normal. Atria : The left atrium size is normal. The right atrium size is normal. Aortic Valve : The aortic valve is normal in structure. There is no aortic valvular stenosis. Mild aortic regurgitation. Mitral Valve : The mitral valve is normal in structure. There is no mitral valve regurgitation noted. No evidence of mitral valve stenosis. Tricuspid Valve : The tricuspid valve is normal in structure. Mild tricuspid regurgitation. TR V-max=3.1 m/s TR peak gradient=38.3 mmHg RVSP mildly elevated but likely normal for age. Great Vessels : The aortic root is normal in size. The IVC is normal in size and collapses >50% with inspiration. Pericardium : There is no pericardial effusion. Exercise nuclear stress test 04/06/19: Stress ECG Conclusion 1. The patient showed good exercise capacity 2. This represents a maximal effort study 3. The patient developed symptomatic runs of ventricular tachycardia with HR in the 150s at stage two of Michael protocol exercise. This was accompanied by chest discomfort and shortness of breath. The test was stopped and symptoms resolved 2 minutes into recovery. 4. The stress ECG portion of the study is suggestive of ischemia MPI Conclusion The imaging portion of the study was normal. There was no TID and no wall motion abnormalities. While the imaging portion the study did not show ischemia, the significant run of VT with exercise in addition to reproduction of symptoms are concerning. This represents a positive stress test. Labs on day of discharge: Labs from last 24 hours 04/06/19 04/06/19 04/06/19 16:37 16:35 06:15 APTT Pending Sodium 141 Potassium 4.4 Chloride 105 Carbon Dioxide 28.2 Anion Gap 7.8 BUN 19 H Creatinine 0.88 Estimated GFR/1.73 m2 >= 60.00 Glucose 97 Calcium 8.9 Magnesium 2.3 Troponin I Pending [facility] Medical History Hyperlipidemia Obesity Osteoarthritis Varicosities of leg Surgical History Colonoscopy - MAC (05/26/17) Social History Smoking/Tobacco Use Status: Never Drug use: Never Do you feel safe at home: Yes Do you feel safe in your relationship?: Yes
[2019-04-06] MEDS: Metoprolol 12.5 MG TAB PO (17:06)
[2019-04-06 17:23] LABS: PTT Activated 28.1 sec (21.0-31.4)
[2019-04-06 17:34] LABS: Troponin I < 0.05 ng/mL (0.00-0.06)
== END 2019-04-06 17:50 | disposition short-term general hospital (02) | DRG 313 ==
LOC: ER 21:40 → ICU 21:53
PROVIDERS: Admitting Provider General Practice; Emergency Provider Student in an Organized Health Care Education/Training Program; PCP Internal Medicine; Visit Provider Internal Medicine
DX: R07.9 Chest pain, unspecified (principal); I47.2 Ventricular tachycardia; R94.39 Abnormal result of other cardiovascular function study; R06.02 Shortness of breath; E78.5 Hyperlipidemia, unspecified; Z82.49 Family history of ischemic heart disease and other diseases of the circulatory system
CPT/HCPCS: 36415; 78452; 80048; 80053; 80061; 93005; 93016; 93018; 93306; 99222; 99225; 99239; 99285; J1650; 71046; 83036; 83735; 84439; 84443; 84484; 85025; 85379; 85730; 93010; 93017; 93970; 99218; G0378; J3490

== ENCOUNTER 2019-06-26 00:59 | Outpatient (CLI) | payer MEDICARE, BC, SELFPAY ==
--- NOTE | 2019-06-26 07:32 | DI.MAMMO_ITS ---
EXAM: MG MAMMO SCREENING CLINICAL HISTORY: SCREENING, Z12.31 TECHNIQUE: Bilateral full field digital CC and MLO mammographic images were obtained with 3D tomosyn thesis and utilizing computer aided detection (CAD). COMPARISON: Available for comparison. FINDINGS: Masses/Architectural Distortion: None seen. Area of asymmetry in the upper-outer quadrant of the left breast appears stable. Microcalcifications: No suspicious pleomorphic-type are seen. Skin Thickening/Nipple Retraction: None. IMPRESSION: 1. No significant interval change with no specific features of malignancy noted. 2. Unless there is more urgent need, screening mammography is recommended, as per [employer] guidelines. ACR BI-RAD Category- 1 Negative Breast Density - Category C - Heterogeneously dense The mammogram demonstrates the patient's breast tissue is dense. Dense breast tissue is very common a nd is not abnormal but dense breast tissue can make it harder to find cancer on a mammogram. Also, de nse breast tissue may increase their breast cancer risk. This information about the result of the [facility] mogram report was provided to the patient to raise their awareness. Use this report when you speak wi th the patient about their risks for breast cancer, which includes their family history. At that time , you may recommend for more screening tests (Ultrasound or MRI) as they might be useful based on the ir risk. A negative radiographic report should not delay biopsy if a dominant or clinically suspicious mass is present. Up to ten percent of cancers are not identified on mammography. A negative report may reinforce clinical impression. Adenosis and dense breasts may obscure an underlying neoplasm. False positive reports average 6 to 10%. Patient will receive a letter notifying them of these results.
== END 2019-06-26 01:19 ==
PROVIDERS: PCP Internal Medicine; Visit Provider Family Medicine
DX: Z12.31 Encounter for screening mammogram for malignant neoplasm of breast (principal)
CPT/HCPCS: 77063; 77067

== ENCOUNTER 2019-09-13 11:32 | Outpatient (REF) | payer MEDICARE, BC, SELFPAY ==
[2019-09-13 22:05] LABS: HCT 40.3 % (36.0-46.0); HGB 13.2 g/dL (12.0-15.5); Mean Corp. HGB Concentration 32.8 g/dL (32.0-36.0); Mean Corpuscular Hemoglobin 32.2 pg (27.0-33.0); Mean Corpuscular Volume 98.3 fL (80-95); Mean Platelet Volume 9.4 fL (8.0-11.0); Platelet Count 313 x1000/uL (130-400); RBC Distribution Width 12.4 % (11.7-14.6); White Blood Cell Count 5.31 k/cumm (4.4-10.8)
[2019-09-13 22:07] LABS: Anion Gap 7.1 mmol/L (3-11); BUN 26 mg/dL (7-18); CO2 29.9 mmol/L (21.0-32.0); CREATININE 0.94 mg/dL (0.55-1.02); Calcium 8.9 mg/dL (8.5-10.1); Chloride 104 mmol/L (98-107); Estimated GFR 58.21 (mL/min/1.73m2); Glucose 92 mg/dL (74-106); Potassium 4.5 mmol/L (3.5-5.1); Sodium 141 mmol/L (136-145)
== END 2019-09-13 11:52 ==
LOC: NCHCN 11:32
PROVIDERS: PCP Internal Medicine; Visit Provider Nurse Practitioner Family
DX: I47.2 Ventricular tachycardia (principal)
CPT/HCPCS: 80048; 85027

== ENCOUNTER 2019-09-21 14:53 | Outpatient (CLI) | payer MEDICARE, BC, SELFPAY | END 2019-09-21 15:13 | PROVIDERS: PCP Internal Medicine; Visit Provider Nurse Practitioner Family | DX: R07.89 Other chest pain (principal); I47.2 Ventricular tachycardia | CPT/HCPCS: 93225 ==

== ENCOUNTER 2019-09-28 09:40 | Outpatient (CLI) | payer MEDICARE, BC, SELFPAY ==
--- NOTE | 2019-09-28 14:51 | W.HOLTRPT ---
Date of service: 09/28/19 Time of Service: 14:51 Holter Monitor Report Holter Monitor Note: This Holter monitor recorded for 2 days 20 minutes and 9 seconds Predominant rhythm was sinus. Average heart rate was 77 bpm. Minimum heart rate was 59, maximum 118. There were no pauses. There was no bradycardia. There was no atrial fibrillation There were rare ventricular ectopic beats. There were very rare couplets and triplets. There was one 4 beat run of nonsustained ventricular tachycardia There were rare atrial premature beats. There was one 4 beat atrial run Patient symptoms corresponded to sinus rhythm rate 70-80
== END 2019-09-28 10:00 ==
PROVIDERS: PCP Internal Medicine; Visit Provider Nurse Practitioner Family
DX: R07.89 Other chest pain (principal); I47.2 Ventricular tachycardia
CPT/HCPCS: 93227; 93226

== ENCOUNTER 2020-01-02 11:03 | Outpatient (CLI) | payer MEDICARE, BC, SELFPAY ==
[2020-01-06 18:55] LABS: SARS-CoV-2 RNA Undetected (Undetected); SARS-CoV-2 Specimen Source Nasopharynx
== END 2020-01-02 11:23 ==
PROVIDERS: PCP Internal Medicine; Visit Provider Nurse Practitioner Family
DX: Z03.818 Encounter for observation for suspected exposure to other biological agents ruled out (principal)
CPT/HCPCS: U0003

== ENCOUNTER 2020-02-08 08:40 | Outpatient (REF) | payer MEDICARE, BC, SELFPAY ==
[2020-02-08 21:12] LABS: ALT 33 U/L (14-59); AST 23 U/L (15-37); Calculated LDL 73 mg/dL (<100); Cholesterol 143 mg/dL (<200); HDL Cholesterol 55 mg/dL (40-60); Triglyceride 77 mg/dL (<150)
== END 2020-02-08 09:00 ==
LOC: NCHCN 08:40
PROVIDERS: PCP Internal Medicine; Visit Provider Nurse Practitioner Family
DX: E78.5 Hyperlipidemia, unspecified (principal)
CPT/HCPCS: 80061; 84450; 84460

== ENCOUNTER 2020-03-28 02:44 | Outpatient (CLI) | payer MEDICARE, BC, SELFPAY ==
--- NOTE | 2020-03-28 | DI.MAMMO_ITS ---
EXAM: MG MAMMO DIAGNOSTIC BI CLINICAL HISTORY: DIAGNOSTIC, BILAT BREAST TENDERNESS,N64.59 TECHNIQUE: Mammograms were interpreted according to the usual protocol including computer analysis w The [employer] CAD system, tomosynthesis and C-view imaging. COMPARISON: 2010 through 2018 FINDINGS: The breasts are composed of heterogeneously dense fibroglandular densities, Breast Density category C . No suspicious masses or suspicious microcalcifications are seen. No skin thickening or abnormal axillary lymph nodes are seen. There has been no significant change from prior exams. IMPRESSION: BI-RADS Category 1, Negative mammogram. Yearly screening mammography is recommended. Breast Density Category C, heterogeneously Dense. The mammogram demonstrates the patient's breast tissue is dense. Dense breast tissue is very common a nd is not abnormal but dense breast tissue can make it harder to find cancer on a mammogram. Also, de nse breast tissue may increase breast cancer risk. This information about the result of the mammogram report was provided to the patient to raise their awareness. Use this report when you speak with the patient about their risks for breast cancer, which includes their family history. At that time, you may recommend additional screening tests (Ultrasound or MRI) as they might be useful based on their r isk. A negative radiographic report should not delay biopsy if a dominant or clinically suspicious mass is present. Up to ten percent of cancers are not identified on mammography. A negative report may reinforce clinical impression. Adenosis and dense breasts may obscure an underlying neoplasm. False positive reports average 6 to 10%.
== END 2020-03-28 03:04 ==
PROVIDERS: PCP Internal Medicine; Visit Provider Nurse Practitioner Family
DX: N64.4 Mastodynia (principal); R92.2 Inconclusive mammogram
CPT/HCPCS: 77062; 77066; G0279

== ENCOUNTER 2020-03-30 22:00 | Emergency (ER) | payer MEDICARE, BC, SELFPAY ==
[2020-03-30] VITALS (20 sets, daily range): BP systolic 126–146; BP diastolic 59–80; PULSE 74–89; RESP 14–21; TEMP 35.5; O2SAT 90–96
--- NOTE | 2020-03-30 22:00 | RT.EKG_ITS ---
APPROVED REPORT Exam: Resting ECG Patient Location: E HR:85 bpm ECG Measurements Heart Rate 85 AXIS CA 169 P 45 QRSd 85 QRS -17 QT 364 T 30 QTc 434 Conclusion Sinus rhythm...normal P axis, V-rate 60- 99 Normal Electrocardiogram
--- NOTE | 2020-03-30 22:13 | ED.GENADUL_ITS ---
Discharge Plan Disposition Patient Disposition: HOME Condition: Good Discharge Details Clinical Impression: Chest pain Primary Care Provider: Clinton Corley Home Meds and New Rx's Prescriptions: Continued multivitamin [Daily Multi-Vitamin] 1 EACH tablet 1 tab PO DAILY RF: 0 metoprolol succinate 50 mg tablet extended release 24 hr 50 mg PO DAILY RF: 0 aspirin 81 mg tablet,delayed release (DR/EC) 81 mg PO DAILY AM RF: 0 atorvastatin 40 mg tablet 20 mg PO HS RF: 0 Discharge Instructions Instructions: Chest Pain (ED) Additional Instructions: Your EKG, chest x-ray, laboratory studies are fine. As we discussed this is unlikely to be cardiac in nature, screening test negative for blood clots, no evidence of pneumonia or infection. Likely chest wall pain so please try ibuprofen over the next couple of days. Follow-up with primary care next week. Return to ED for new or worsening pain, fever, shortness of breath, other concerns or problems. Referrals: [facility] [Provider Group] Medical Decision Making Patient presenting to ED with chest pressure. No radiation of symptoms and no associated symptoms. No change in pressure with activity. Previous cath 1 year ago with minimal cardiac disease. Pain somewhat reproducible. It is not pleuritic. She has had it for 8 hours now. EKG is fine. Doubt this is cardiac in with 8 hours of pain if negative troponin feel comfortable with the discharge. No risk factor for reason for PE but will screen with d-dimer. Will obtain chest x-ray. Will try GI cocktail to see if this helps at all. 23:30 -patient laboratory studies are unremarkable. Specifically troponin and d-dimer are negative. CBC and chemistries unremarkable. Chest x-ray unremarkable per my read and preliminary radiology read. GI cocktail of no help. Given negative d-dimer with low probability of PE do not feel further evaluation for PE appropriate. Also, given 8 hours of chest pressure with negative troponin and normal EKG with previous minimal disease on cath 1 year ago unlikely to be cardiac as well. Most likely chest wall discomfort. Will have patient try Motrin for the next few days and follow-up with primary care. Return to ED if fever, shortness of breath, associated symptoms or worsening pain. Medical Records Medical records reviewed: Yes I reviewed the patient's medical records. Lab Data Lab results reviewed: Yes I reviewed the patient's lab results. ECG Data Attestation: I personally reviewed and interpreted this ECG (s) as follows: Interpretation: see EKG HPI General Mode of arrival: ambulatory . Date/Time Provider Initiated Documentation: 03/30/20 22:04 . Limitations to Documentation: no limitations . Information obtained by: patient, RN notes reviewed and old records reviewed . HPI Narrative: Patient presents to the ED with 8 hours of chest pressure and discomfort. It is substernal. She thinks it may be related to the mammogram she had on Wednesday. However, it is been persistent and concerned her. She has no associated symptoms. Activity has not made it worse or better. She has no leg pain or leg swelling. 1 year ago she presented with chest pain. She ultimately had work-up including cardiac cath and cardiac MRI at [facility]. She was found to have mild diffuse disease on cath. She does have wall motion abnormality of unknown etiology. She had 2 episodes of nonsustained V. tach but since being on beta- mic has had no issues. She has no radiation of pain. She has no associated lightheadedness, nausea, diaphoresis, shortness of breath. Related Data Home Medications Medication Instructions Recorded Confirmed multivitamin [Daily Multi-Vitamin] 1 tab PO DAILY 05/20/15 03/30/20 aspirin 81 mg PO DAILY AM 03/30/20 03/30/20 atorvastatin 20 mg PO HS 03/30/20 03/30/20 metoprolol succinate 50 mg PO DAILY 03/30/20 03/30/20 Allergies Allergy/AdvReac Type Severity Reaction Status Date / Time acetaminophen [From Kenn] AdvReac neuropathy Unverified 03/30/20 22:14 chlorpheniramine AdvReac neuropathy Unverified 03/30/20 22:14 [From Kenn] oxymetazoline HCl AdvReac neuropathy Unverified 03/30/20 22:14 [From Kenn] pheniramine maleate AdvReac neuropathy Unverified 03/30/20 22:14 [From Kenn] phenylephrine HCl AdvReac neuropathy Unverified 03/30/20 22:14 [From Kenn] pseudoephedrine HCl AdvReac neuropathy Unverified 03/30/20 22:14 [From Kenn] General EZEQUIEL: 2 Review of Systems Narrative: As documented in HPI otherwise negative as below. Const: no fever, chills, weakness Resp: no cough, SOB, pleuritic pain CV: no diaphoresis, edema, syncope GI: no abdominal pain, nausea, vomiting, diarrhea Neuro: no headache, numbness, focal weakness, confusion PFSH Medical History CAD (coronary artery disease) Hyperlipidemia Nonsustained ventricular tachycardia Obesity Osteoarthritis Surgical History Colonoscopy - MAC (05/26/17) S/P cardiac cath Social History Smoking/Tobacco Use Status: Never Alcohol Intake: current Alcohol Intake frequency: a few times a month Alcohol type: wine Drug use: Never Substance use type: does not use Do you feel safe at home: Yes Do you feel safe in your relationship?: Yes Exam Narrative Exam Narrative: Vitals: Afebrile. Normal vitals normal room air pulse ox. Const: WDWN female in NAD. HEENT: NC/AT. Normal facial exam. Eyes: Normal conjunctiva and sclera. Neck: Supple. Trachea midline. Lungs: Normal respiratory effort. Lungs are clear. Minimal lower chest wall tenderness substernal. Cor: RRR without murmur/gallop. Good radial pulses. GI: Soft. NT/ND. No guarding or rebound. Neuro: A+O x 3. Normal speech, mentation, gait. Cranial nerves II - XII grossly intact. No gross motor or sensory deficit. Ext: No C/C/E. No calf tenderness. Skin: Warm and dry without rash.
[2020-03-30 22:48] LABS: Abs Immature Grans 0.03 10^3/uL (0.0-0.06); Absolute Basophil Count 0.05 10^3/uL (0.0-0.2); Absolute Eosinophil Count 0.13 10^3/uL (0.0-0.7); Absolute Lymphocyte Count 2.06 10^3/uL (1.2-3.4); Absolute Monocyte Count 0.33 10^3/uL (0.1-0.8); Basophils % 0.9; Eosinophils % 2.2; HCT 39.9 % (36.0-46.0); HGB 13.1 g/dL (11.2-15.7); Immature Grans % 0.5; Lymphocytes % 35.5; MCH 32.6 pg (27.0-33.0); MCHC 32.8 % (32.0-36.0); MCV 99.3 fL (80-95); MPV 8.9 fL (8.0-11.0); Monocytes % 5.7; Neutrophils % 55.2; Nucleated RBC 0 %; Platelet Count 245 10^3/uL (130-400); RBC 4.02 10^6/uL (3.93-5.22); RDW 11.9 % (11.7-14.6); RDW-SD 43.3 fL
--- NOTE | 2020-03-30 23:00 | DI.RAD_ITS ---
EXAM: XR CHEST 2V PA LATERAL CLINICAL HISTORY: chest pain TECHNIQUE: 2D digital imaging was performed. COMPARISON: CR XR CHEST 2V PA LATERAL from 04/04/2019 FINDINGS: The heart is not enlarged. The lungs are clear and well expanded. No pleural effusion seen. Mediastin al contours appear intact. IMPRESSION: Normal chest RADIATION DOSE DELIVERED: Total DLP
[2020-03-30 23:04] LABS: ALT 35 U/L (14-59); AST 24 U/L (15-37); Alkaline Phosphatase 71 U/L (46-116); Anion Gap 5.6 mmol/L (3-11); BUN 22 mg/dL (7-18); Bilirubin, Total 0.2 mg/dL (0.2-1.0); CO2 29.4 mmol/L (21.0-32.0); Calcium 9.2 mg/dL (8.5-10.1); Chloride 104 mmol/L (98-107); Estimated GFR 48.42 (mL/min/1.73m2); Glucose 145 mg/dL (74-106); Magnesium 2.2 mg/dL (1.8-2.4); Potassium 3.7 mmol/L (3.5-5.1); Sodium 139 mmol/L (136-145); Total Protein 7.5 g/dL (6.4-8.2)
[2020-03-30 23:05] LABS: Troponin I < 0.05 ng/mL (<0.06)
--- NOTE | 2020-03-30 23:11 | DI.VRAD_ITS ---
PROCEDURE INFORMATION: Exam: XR Chest, 2 Views Exam date and time: 03/30/2020 10:59 PM Age: 74 years old Clinical indication: Other: Chest pain TECHNIQUE: Imaging protocol: XR of the chest Views: 2 views. COMPARISON: CR XR CHEST 2V PA LATERAL 04/04/2019 7:48 PM FINDINGS: Lungs: Calcified granuloma in the left mid lung is of no clinical concern. Lungs are clear. Pleural space: Unremarkable. No pleural effusion. No pneumothorax. Heart/Mediastinum: Unremarkable. No cardiomegaly. Bones/joints: No acute abnormality or aggressive osseous lesion. IMPRESSION: Negative for acute thoracic pathology. Dictated and Authenticated by: Chris Thompson MD. Ordering:GIO Colin MD
[2020-03-30 23:27] LABS: D-Dimer 471 ng/mlFEU (<500)
== END 2020-03-30 23:10 | disposition home or self-care (01) ==
PROVIDERS: Emergency Provider Emergency Medicine; PCP Internal Medicine
DX: R07.89 Other chest pain (principal)
CPT/HCPCS: 36415; 80053; 93005; 99285; 71046; 83735; 84484; 85025; 85379; 93010; 99284

== ENCOUNTER 2020-04-29 01:51 | Outpatient (CLI) | payer MEDICARE, BC, SELFPAY ==
--- NOTE | 2020-04-29 09:00 | ETT_ITS ---
APPROVED REPORT Exam: Exercise Treadmill Patient Location: Out-Patient Room/Bed: Stress Nurse: Samantha Herrera RN BMI: 27.46 Baseline Rhythm: Sinus Rhythm Indications: Atypical chest discomfort. Medical History Medical History: CAD, NSVT, HLD, OA Cardiac Medications: ASA, Atorvastatin, Metoprolol Succinate. , Allergies: Dristan. Cardiac Risk Factors: FHX of CAD, PVD, Hyperlipidemia Previous Cardiac Procedures: PCI, no stenting, minimal cardiac disease. Pretest Chest Pain Characteristics: No chest pain Exercise History: Indeterminate Physical Disabilities: None. Lung Sounds: Clear to auscultation Heart Sounds: Regular Stress Test Details Test: Exercise stress testing was performed using a Michael protocol. Rest Stress HR Resting HR Supine: 80 bpm Max Heart Rate (APMHR): 145 bpm Resting HR Standin bpm Target HR (85% APMHR): 123 bpm Max HR Achieved: 167 bpm % of APMHR: 115 Recovery HR: 98 bpm HR response to stress: Normal HR response to stress BP Resting BP Supine: 148/76 mmHg Resting BP Standin/74 mmHg Max BP: 170/60 mmHg Recovery BP: 142/74 mmHg BP response to stress: Normal blood pressure response to stress. ECG Resting ECG: Sinus Rhythm Ectopy: rare PVC. Stress ECG: Sinus Tachycardia ST Change: no significant ST segment changes noted. Arrhythmia: PVCs, trigeminy. Recovery ECG: Sinus Rhythm Recovery ST Change: no significant ST segment changes Recovery Arrhythmia: PACs, PVCs. Clinical Reason for Termination: Fatigue Stress Symptoms: None. Exercise duration: 9 min11 sec Highest Stage Reached: Stage 4: 4.2 mph at 16% grade. Exercise capacity: 10.46 METs Stress ECG Conclusion 1. Patient exercised for 9 minutes (10 METS) the patient no symptoms suggestive of ischemia. 2. The patient achieved over 85% of maximal predicted heart rate. Blood pressure response was normal . 3. There is no evidence of ischemia on the EKG portion of the exam. 4. The Phelps Score ( 8) estimates an annual cardiovascular mortality of 0% and a five year survival of 95%. Using the Phelps Score there is a low probability of any angiographic coronary disease. Stress Test Summary STAGE Time (mins) Speed (mph) Grade (%) HR BP SYMPTOMS METS Supine 80 148/76 Standing 94 140/74 1 3 1.7 10 129 152/72 4.6 2 6 2.5 12 141 156/64 7 3 9 3.4 14 160 10.2 1 min recovery 143 170/60 3 min recovery 96 154/66 6 min recovery 101 142/74
== END 2020-04-29 02:11 ==
PROVIDERS: PCP Internal Medicine; Visit Provider Nurse Practitioner Family
DX: R07.89 Other chest pain (principal); I25.10 Atherosclerotic heart disease of native coronary artery without angina pectoris; Z82.49 Family history of ischemic heart disease and other diseases of the circulatory system; I73.9 Peripheral vascular disease, unspecified; E78.5 Hyperlipidemia, unspecified
CPT/HCPCS: 93016; 93018; 93017

== ENCOUNTER 2020-06-19 10:56 | Outpatient (REF) | payer MEDICARE, BC, SELFPAY | END 2020-06-19 11:16 | LOC: NCHCN 10:56 | PROVIDERS: PCP Internal Medicine; Visit Provider Nurse Practitioner Family | DX: R30.0 Dysuria (principal) | CPT/HCPCS: 87077; 87086; 87186 ==

== ENCOUNTER 2021-02-06 08:38 | Outpatient (REF) | payer MEDICARE, BC, SELFPAY ==
[2021-02-06 14:27] LABS: ALT 25 U/L (14-59); AST 24 U/L (15-37); Anion Gap -1.3 mmol/L (3-11); BUN 19 mg/dL (7-18); CO2 32.3 mmol/L (21.0-32.0); CREATININE 0.9 mg/dL (0.55-1.02); Calcium 9.1 mg/dL (8.5-10.1); Calculated LDL 87 mg/dL (<100); Chloride 108 mmol/L (98-107); Cholesterol 158 mg/dL (<200); Glucose 95 mg/dL (74-106); HDL Cholesterol 56 mg/dL (40-60); Potassium 4.9 mmol/L (3.5-5.1); Sodium 139 mmol/L (136-145); Triglyceride 76 mg/dL (<150)
== END 2021-02-06 08:39 | disposition home or self-care (01) ==
LOC: NCHCN 08:38
PROVIDERS: PCP Internal Medicine; Visit Provider Nurse Practitioner Family
DX: E78.5 Hyperlipidemia, unspecified (principal); R73.03 Prediabetes
CPT/HCPCS: 80048; 80061; 84450; 84460

== ENCOUNTER 2021-04-03 15:11 | Outpatient (REF) | payer MEDICARE, BC, SELFPAY ==
[2021-04-03 22:11] LABS: Abs Immature Grans 0.02 10^3/uL (0.0-0.06); Absolute Basophil Count 0.03 10^3/uL (0.0-0.2); Absolute Eosinophil Count 0.16 10^3/uL (0.0-0.7); Absolute Lymphocyte Count 1.73 10^3/uL (1.2-3.4); Absolute Monocyte Count 0.33 10^3/uL (0.1-0.8); Basophils % 0.5; Eosinophils % 2.9; HCT 37.4 % (36.0-46.0); HGB 12.6 g/dL (11.2-15.7); Immature Grans % 0.4; Lymphocytes % 31.6; MCH 32.7 pg (27.0-33.0); MCHC 33.7 % (32.0-36.0); MCV 97.1 fL (80-95); MPV 9.9 fL (8.0-11.0); Neutrophils % 58.6; Nucleated RBC 0 %; Platelet Count 248 10^3/uL (130-400); RBC 3.85 10^6/uL (3.93-5.22); RDW 11.9 % (11.7-14.6); RDW-SD 41.6 fL; WBC 5.47 10^3/uL (4.4-10.8)
== END 2021-04-03 15:12 | disposition home or self-care (01) ==
LOC: NCHCN 15:11
PROVIDERS: PCP Internal Medicine; Visit Provider Nurse Practitioner Family
DX: R59.1 Generalized enlarged lymph nodes (principal)
CPT/HCPCS: 85025

== ENCOUNTER 2021-04-23 02:40 | Outpatient (CLI) | payer MEDICARE, BC, SELFPAY ==
--- NOTE | 2021-04-23 | DI.DEXA_ITS ---
Exam(s) XR DEXA BONE DENSITY W/WO CASEY EXAM: XR DEXA BONE DENSITY W/WO CASEY CLINICAL HISTORY: OSTEOPENIA,M85.88 TECHNIQUE: Routine DEXA evaluation of the lumbar spine, hip, or forearm. COMPARISON: Prior DEXA scan November 2012 FINDINGS: Performed on a HoloL[employer] Assure unit. Lateral image: No compression fracture evident. Lumbar Spine total T-score: -1.0. Prior reading in 2012 was -1.3 Hip total T-score:-1.0. Prior 2012 reading was -0.5 Independent reading at the level of the femoral neck yields at T-score of -0.8. Forearm total T-score: 0.0 IMPRESSION: Bone mineral density measures in the normal range. Fracture risk is low Note: Any spine fracture indicates 5x risk for subsequent spine fracture and 2x risk for subsequent h ip fracture. World Health Organization criteria for BMD interpretation classify patients: Normal...... T- Score at or above -1.0 Osteopenic... T- Score between -1.0 and -2.5 Osteoporosis... T-Score at or below -2.5
== END 2021-04-23 03:00 ==
PROVIDERS: PCP Internal Medicine; Visit Provider Nurse Practitioner Family
DX: M85.88 Other specified disorders of bone density and structure, other site (principal); Z13.820 Encounter for screening for osteoporosis
CPT/HCPCS: 77080

== ENCOUNTER 2021-05-02 21:11 | Emergency (ER) | payer MEDICARE, BC, SELFPAY ==
[2021-05-02 21:18] VITALS: BP 161/70; PULSE 74; TEMP 36.5; O2SAT 99
--- NOTE | 2021-05-02 21:38 | ED.GENADUL_ITS ---
Discharge Plan Disposition Patient Disposition: HOME Condition: Stable Discharge Details Clinical Impression: Abdominal pain, Lumbago Primary Care Provider: Clinton Corley ED Provider: Maria Elena Jack Home Meds and New Rx's Prescriptions: Continued multivitamin [Daily Multi-Vitamin] 1 EACH tablet 1 tab PO DAILY RF: 0 metoprolol succinate 50 mg tablet extended release 24 hr 50 mg PO DAILY RF: 0 aspirin 81 mg tablet,delayed release (DR/EC) 81 mg PO DAILY AM RF: 0 atorvastatin 40 mg tablet 20 mg PO HS RF: 0 Discharge Instructions Instructions: Low Back Strain (ED), Abdominal Pain (ED) Additional Instructions: At this time CT shows no emergent process. There are some cysts on your kidneys, and a cyst on the ovary. Please follow-up with your primary care provider regarding these findings. Follow up with primary care provider in 3-5 days. Return to ED sooner if any worsening abdominal pain, fever, vomiting, diarrhea, blood in your stool, chest pain shortness of breath or concerns. Increase oral fluids. Please take Tylenol with food every 4-6 hours as needed for pain and swelling. Alternate ice and heat for your back. Referrals: Clinton Corley MD [Primary Care Provider] - 5 days Discharge Data Discharge Date/Time-TO BE ENTERED AT DEPARTURE: 05/03/21 01:15 Medical Decision Making 75 year old female presents to the ED with chief complaint of RLQ abd pain which began tonight. Patient reports approximately 10 days ago she was doing some heavy lifting and had a right lower back spasm. She reports that now the pain has concentrated to her right lower quadrant. She denies any nausea vomiting diarrhea. She denies any loss of bowel or bladder control or saddle anesthesia. She denies any radiation of the pain into her leg. On exam she has no midline CTL spine tenderness she does have some right mid paraspinous tenderness. She does have some right upper quadrant right lower quadrant tenderness with palpation on her abdomen. Abdomen is soft. Negative straight leg test. She has a past medical history of coronary artery disease, hyperlipidemia, nonsustained ventricular tachycardia, osteoarthritis, obesity. She takes 81 mg daily aspirin, atorvastatin, metoprolol and multivitamin daily. CBC, CMP, urinalysis CT abdomen pelvis ordered rule out appendectomy versus cholecystectomy. CBC shows no leukocytosis, CMP largely within normal limits. Anion gap 12.5 BUN 23 creatinine 1.0 GFR 53 glucose 162. Urinalysis largely within normal limits. CT shows left ovarian cyst. Discussed results with patient who verbalized understanding. Discuss strict return instructions. This text was generated using GigaSpacesation system, please disregard any oddities of phrase or misspellings. HPI General Mode of arrival: ambulatory . Date/Time Provider Initiated Documentation: 05/02/21 21:37 . Limitations to Documentation: no limitations . Information obtained by: patient, RN notes reviewed and old records reviewed . HPI Narrative: 75 year old female presents to the ED with chief complaint of RLQ abd pain which began tonight. Patient reports approximately 10 days ago she was doing some heavy lifting and had a right lower back spasm. She reports that now the pain has concentrated to her right lower quadrant. She denies any nausea vomiting diarrhea. She denies any loss of bowel or bladder control or saddle anesthesia. She denies any radiation of the pain into her leg. On exam she has no midline CTL spine tenderness she does have some right mid paraspinous tenderness. She does have some right upper quadrant right lower quadrant tenderness with palpation on her abdomen. Abdomen is soft. Negative straight leg test. She has a past medical history of coronary artery disease, hyperlipidemia, nonsustained ventricular tachycardia, osteoarthritis, obesity. She takes 81 mg daily aspirin, atorvastatin, metoprolol and multivitamin daily. Related Data Home Medications Medication Instructions Recorded Confirmed multivitamin [Daily Multi-Vitamin] 1 tab PO DAILY 05/20/15 03/30/20 aspirin 81 mg PO DAILY AM 03/30/20 03/30/20 atorvastatin 20 mg PO HS 03/30/20 03/30/20 metoprolol succinate 50 mg PO DAILY 03/30/20 03/30/20 Allergies Allergy/AdvReac Type Severity Reaction Status Date / Time acetaminophen [From Kenn] AdvReac neuropathy Unverified 03/30/20 22:14 chlorpheniramine AdvReac neuropathy Unverified 03/30/20 22:14 [From Kenn] oxymetazoline HCl AdvReac neuropathy Unverified 03/30/20 22:14 [From Kenn] pheniramine maleate AdvReac neuropathy Unverified 03/30/20 22:14 [From Kenn] phenylephrine HCl AdvReac neuropathy Unverified 03/30/20 22:14 [From Kenn] pseudoephedrine HCl AdvReac neuropathy Unverified 03/30/20 22:14 [From Kenn] General Stated Complaint: Abd Prob EZEQUIEL: 3 Review of Systems All systems reviewed & are unremarkable except as noted in HPI and below Constitutional Constitutional: Reports as per HPI, Denies chills, Denies fever(s) and Denies headache(s) ENT Ears, Nose, Mouth, and Throat: Denies headache(s) Cardiovascular Cardiovascular: Denies chest pain and Denies dyspnea Respiratory Respiratory: Denies cough and Denies dyspnea Gastrointestinal Gastrointestinal: Reports abdominal pain, Denies melena, Reports bloating, Denies constipation, Denies diarrhea, Denies nausea and Denies vomiting Neurologic Neurologic: Denies headache(s) PFSH Medical History CAD (coronary artery disease) Hyperlipidemia Nonsustained ventricular tachycardia Obesity Osteoarthritis Surgical History Colonoscopy - MAC (05/26/17) S/P cardiac cath Social History Smoking/Tobacco Use Status: Never Smoking risk assessment performed?: Yes Alcohol Intake: current Alcohol Intake frequency: a few times a month Alcohol type: wine Drug use: Never Substance use type: does not use Do you feel safe at home: Yes Do you feel safe in your relationship?: Yes Exam Narrative Exam Narrative: Constitutional: Alert and oriented x3. Appears stated age. Normal body habitus. Head: Normocephalic, no trauma. Eyes: Pupils PERRL, Red reflex noted, EOM's intact. Eyelids symmetrical without lesions, discharge, or swelling. ENT: Bilateral TM's WNL, External ear normal to inspection, no mastoid TTP, swelling, or erythema, Nasal turbinates WNL, no nasal discharge. Normal dentition, Posterior pharynx WNL, no exudate. Chest: RRR, Normal S1, S2, distal pulses intact. Resp: Lungs clear to auscultation bilaterally, no wheezes, rales, or rhonchi. Abdomen: Soft, non-distended, hypoactive bowel sounds all 4 quads. Right upper quadrant right lower quadrant tenderness with palpation. Musculoskeletal: Normal gait, 5/5 strength to all four extremities. Right lumbar paraspinous tenderness with palpation. Skin: No suspicious rashes or lesions. Capillary refill less than 2 sec. Neurologic: Cranial nerves II-XII intact. Alert and oriented x 3. Motor: No deficits noted. Sensory: Intact bilaterally all 4 extremities. Reflexes: DTR's intact bilaterally.. Hematologic/Lymphatic: No ecchymosis, no lymphadenopathy. Course Vital Signs Vital signs: Vital Signs Temperature 36.5 C 05/02/21 21:18 Pulse 74 05/02/21 21:18 Blood Pressure 161/70 H 05/02/21 21:18 Pulse Oximetry 99 05/02/21 21:18 Temperature 36.5 C 05/02/21 21:18 Temperature Source Tympanic 05/02/21 21:18 Pulse 74 05/02/21 21:18 Blood Pressure 161/70 H 05/02/21 21:18 Blood Pressure Position Sitting 05/02/21 21:18 Pulse Oximetry 99 05/02/21 21:18 Oxygen Delivery Method Room Air 05/02/21 21:18 Oxygen Flow Rate 0 05/02/21 21:18
--- NOTE | 2021-05-02 22:00 | DI.CT_ITS ---
Exam(s) CT ABDOMEN PELVIS W EXAM: CT ABDOMEN PELVIS W INDICATION: Abdominal pain, R/O Appy, Cholecystectomy. COMPARISON: No exams were available for comparison TECHNIQUE: FINDINGS: CT examination of the abdomen and pelvis was performed with a bolus infusion of 100 cc of Omnipaque 3 50. Images obtained through the lung bases are unremarkable. The liver is unremarkable in appearance. Gallbladder and bile ducts are CT normal. Pancreas appears normal. Spleen is unremarkable in appearance. Adrenals appear normal. The kidneys are unremarkable except for small bilateral presumed renal cysts with no evidence of hydr onephrosis, nephrolithiasis, or renal mass.. Urinary bladder unremarkable. Abdominal aorta is of normal diameter and no major vascular abnormality is seen. No abdominal wall hernia. No abdominal or pelvic adenopathy. Uterus appears unremarkable for age. There is a 3.5 cm in diameter low-attenuation mass of the left adnexal region consistent with ovarian mass, CT characterization is inadequate to exclude malignancy and pelvic ultrasound is recommended. There is a large left gonadal vein. Appendix is normal. No evidence of diverticulitis or bowel obstruction. IMPRESSION: No evidence of acute process. However, there is a a an incompletely characterized left ovarian mass, additional evaluation with pelvic ultrasound recommended to exclude malignancy. RADIATION DOSE DELIVERED: 945.55mGy.cm Total DLP 945.55mGy.cm Total DLP 19.63mGy CTDIvol RADIATION OPTIMIZATION: All CT scans at this facility use at least one of these dose optimization te chniques: automated exposure control; mA and/or kV adjustment per patient size (includes targeted exa ms where dose is matched to clinical indication); or iterative reconstruction.
[2021-05-02] MEDS: Normal Saline 500 ML IV (22:15)
[2021-05-02 22:17] LABS: Abs Immature Grans 0.01 10^3/uL (0.0-0.06); Absolute Basophil Count 0.04 10^3/uL (0.0-0.2); Absolute Eosinophil Count 0.15 10^3/uL (0.0-0.7); Absolute Lymphocyte Count 1.77 10^3/uL (1.2-3.4); Absolute Monocyte Count 0.34 10^3/uL (0.1-0.8); Absolute Neutrophil Count 2.99 10^3/uL (1.2-6.7); Basophils % 0.8; Eosinophils % 2.8; HCT 36.6 % (36.0-46.0); HGB 12.3 g/dL (11.2-15.7); Immature Grans % 0.2; Lymphocytes % 33.4; MCH 32.4 pg (27.0-33.0); MCHC 33.6 % (32.0-36.0); MCV 96.3 fL (80-95); MPV 8.8 fL (8.0-11.0); Monocytes % 6.4; Neutrophils % 56.4; Nucleated RBC 0 %; Platelet Count 212 10^3/uL (130-400); RDW 11.6 % (11.7-14.6); RDW-SD 41.1 fL
[2021-05-02 22:44] LABS: ALT 32 U/L (14-59); AST 24 U/L (15-37); Albumin 3.9 g/dL (3.4-5.0); Alkaline Phosphatase 76 U/L (46-116); Anion Gap 12.5 mmol/L (3-11); BUN 23 mg/dL (7-18); Bilirubin, Total 0.2 mg/dL (0.2-1.0); CO2 24.5 mmol/L (21.0-32.0); Calcium 8.8 mg/dL (8.5-10.1); Chloride 106 mmol/L (98-107); Estimated GFR 53.91 (mL/min/1.73m2); Glucose 162 mg/dL (74-106); Magnesium 1.9 mg/dL (1.8-2.4); Potassium 3.9 mmol/L (3.5-5.1); Sodium 143 mmol/L (136-145); Total Protein 6.7 g/dL (6.4-8.2)
[2021-05-03] MEDS: Normal Saline - Diluent 50 ML VIAL IV (00:24)
[2021-05-03] MEDS: Omnipaque 350 MG/ML 100 ML BTL IJ (00:24)
--- NOTE | 2021-05-03 00:25 | DI.VRAD_ITS ---
PROCEDURE INFORMATION: Exam: CT Abdomen And Pelvis With Contrast Exam date and time: 05/02/2021 10:11 PM Age: 75 years old Clinical indication: Other: Abdominal pain, R/O appy, cholecystectomy TECHNIQUE: Imaging protocol: Computed tomography of the abdomen and pelvis with contrast. COMPARISON: CR XR CHEST 2V PA LATERAL 03/30/2020 10:54 PM FINDINGS: Lungs: Mild bibasilar atelectasis. Liver: A few tiny hypodensities in the liver are most likely benign. Gallbladder and bile ducts: Status post cholecystectomy. Pancreas: Normal. No ductal dilation. Spleen: Normal. No splenomegaly. Adrenal glands: Normal. No mass. Kidneys and ureters: Hypodensities in the kidneys cannot be further characterized, but are most likely cysts. Stomach and bowel: Unremarkable. No obstruction. No mucosal thickening. Appendix: No evidence of appendicitis. Intraperitoneal space: Unremarkable. No free air. No significant fluid collection. Vasculature: Incidental note of a prominent left gonadal vein. Lymph nodes: Unremarkable. No enlarged lymph nodes. Urinary bladder: Unremarkable as visualized. Reproductive: A 35 mm hypodensities seen on the left ovary. In this patient, further characterization with ultrasound is recommended on a non urgent basis. Bones/joints: Unremarkable. No acute fracture. Soft tissues: Unremarkable. IMPRESSION: No acute intra-abdominal pathology Dictated and Authenticated by: Khoa Bradshaw MD. Ordering:MERYL Arredondo MD
[2021-05-03 00:32] LABS: Bilirubin Negative (Negative); Blood Negative (Negative); Clarity Clear (Clear); Glucose Negative (Negative); Ketones Negative (Negative); Leukocyte Esterase Negative (Negative); Nitrite Negative (Negative); Urobilinogen 0.2 EU/dL (Up TO 0.2)
[2021-05-03 02:45] VITALS: BP 128/72; PULSE 78; RESP 19; TEMP 36.5; O2SAT 99
== END 2021-05-03 01:15 | disposition home or self-care (01) ==
PROVIDERS: Emergency Provider Registered Nurse Emergency; PCP Internal Medicine
DX: R10.31 Right lower quadrant pain (principal); M54.50 Low back pain, unspecified; N83.202 Unspecified ovarian cyst, left side; N28.1 Cyst of kidney, acquired
CPT/HCPCS: 80053; 96360; 99285; 74177; 81003; 83735; 85025; 99284; J3490

== ENCOUNTER 2021-05-27 00:50 | Outpatient (CLI) | payer MEDICARE, BC, SELFPAY ==
--- NOTE | 2021-05-27 | DI.US_ITS ---
Exam(s) US PELVIS EXAM: US PELVIS CLINICAL HISTORY: OVARIAN MASS, N83.9. TECHNIQUE: Transabdominal pelvic ultrasound was performed using standard protocol. The patient elec mau to forego the transvaginal portion of the examination. COMPARISON: CT CT ABDOMEN PELVIS W from 05/02/[address] ABDOMEN PELVIS W from 05/02/2021 FINDINGS: KIDNEYS: Kidneys are symmetric in size. No evidence of renal calculi. No evidence of hydronephrosis. No renal mass or cyst identified. UTERUS: Position: Anteverted. Size: 7.2 long by 3.1 AP by 4.7 transverse cm Endometrium: 0.3 cm. Normal for patient's menstrual status. Myometrium: Unremarkable. Cervix: Unremarkable. OVARIES: Right: 1.7 x 1.4 x 1.9 cm Cyst or mass: None. Left: 4.2 x 3.5 x 2.8 cm Cyst or mass: 3.2 x 2.9 x 2.9 cm simple cyst. DOPPLER: Color: Symmetric and uniform flow to both ovaries. CUL-DE-SAC: Free fluid: None. Other: None. IMPRESSION: 1. Normal sonographic appearance of the kidneys. 2. Normal-appearing uterus with endometrial stripe within normal limits. 3. 3.2 cm simple left ovarian cyst. A follow-up pelvic ultrasound is recommended to document stabili ty. DATA REPOSITORY:
== END 2021-05-27 01:10 ==
PROVIDERS: PCP Internal Medicine; Visit Provider Nurse Practitioner Family
DX: N83.9 Noninflammatory disorder of ovary, fallopian tube and broad ligament, unspecified (principal); N83.292 Other ovarian cyst, left side
CPT/HCPCS: 76856

== ENCOUNTER 2021-09-01 03:24 | Outpatient (CLI) | payer MEDICARE, SELFPAY ==
--- NOTE | 2021-09-01 | DI.US_ITS ---
Exam(s) US PELVIS TRANSVAGINAL EXAM: US PELVIS TRANSVAGINAL CLINICAL HISTORY: OVARIAN MASS, N83.9 TECHNIQUE: Transabdominal and transvaginal imaging was performed using standard protocol. COMPARISON: US LEFT BREAST ULTRASOUND from 12/14/[address] ABDOMEN PELVIS W from 05/02/2021 US US PELVIS from 05/27/2021 FINDINGS: KIDNEYS: Kidneys are symmetric in size. No evidence of renal calculi. No evidence of hydronephrosis. No renal mass or cyst identified. UTERUS: Anteverted. 8 x 3 x 4.7 cm Endometrium: 8 millimeters mildly heterogeneous. No focal lesion visible. Myometrium: Unremarkable. Cervix: Unremarkable. OVARIES: Right: Cyst or mass: None. Left: Cyst or mass: 4.2 centimeter cyst with septation. Stable appearance when compared with prior C T. Evaluation of the previous ultrasound was suboptimal due to the transabdominal only imaging. DOPPLER: Color: Symmetric and uniform flow to both ovaries. No hyperemia. Duplex: Normal ovarian arterial waveforms visualized. CUL-DE-SAC: Free fluid: None. IMPRESSION: 1. Thickened heterogeneous endometrium, new when compared with the previous exam. Biopsy recommended . 2. 4.2 centimeter cyst with septation of the left ovary. DATA REPOSITORY:
== END 2021-09-01 03:44 ==
PROVIDERS: PCP Internal Medicine; Visit Provider Nurse Practitioner Family
DX: N83.292 Other ovarian cyst, left side; R93.89 Abnormal findings on diagnostic imaging of other specified body structures
CPT/HCPCS: 76830; 76856

== ENCOUNTER 2021-09-19 10:43 | Outpatient (REF) | payer MEDICARE, SELFPAY ==
--- NOTE | 2021-09-19 10:00 | ENDOMET_PTH ---
PATIENT: Camilo Godwin LOC: [facility] U#:[id number] AGE/SX: 75/F ROOM: RE09/19/[address]: Veronica Carvajal DO : 1945 BED: DIS: 09/19/2021 SPEC #: [id number] RECD: 09/19/21 12:57 STATUS: ALEX REQ #: [id number] JAMEY: 09/19/21 10:[address]: Veronica Carvajal DEPT: Surgical Specimen RECD BY: Anh Sanabria ENTERED: 09/19/21 12:58 SP TYPE: Endomet OTHR DR: Clinton Corley Tissues: 1 - ENDOMETRIUM BX/HORACIO Procedures: GROSS AND MICRO LEVEL 4 Comments: [id number]
== END 2021-09-19 10:44 | disposition home or self-care (01) ==
LOC: LBN 10:43
PROVIDERS: PCP Internal Medicine; Visit Provider Obstetrics & Gynecology
DX: R93.89 Abnormal findings on diagnostic imaging of other specified body structures (principal)
CPT/HCPCS: 88305

== ENCOUNTER → 2022-01-08 01:45 | Outpatient (CLI) | payer MEDICARE, SELFPAY ==
--- NOTE | 2022-01-08 07:45 | DI.US_ITS ---
Exam(s) US PELVIS TRANSVAGINAL EXAM: US PELVIS TRANSVAGINAL CLINICAL HISTORY: re-check left ovarian cyst,ENDOMETRIAL THICKENING,R93.89,N83.202. TECHNIQUE: Transabdominal and transvaginal pelvic ultrasound was performed using standard protocol. COMPARISON: US US PELVIS TRANSVAGINAL from 09/01/2021 FINDINGS: KIDNEYS: Kidneys are symmetric in size. No evidence of renal calculi. No evidence of hydronephrosis. No renal mass or cyst identified. UTERUS: Position: Anteverted. Size: 7.6 long by 3 AP by 3.5 transverse cm Endometrium: 8.7 mm. The endometrial stripe is thickened and heterogeneous. Myometrium: Unremarkable. Cervix: Unremarkable. OVARIES: Right: Not visualized on this examination. Left: 5.3 x 4.6 x 3.7 cm Cyst or mass: There is again seen a septated cyst in the left ovary. It measures 4.7 x 4.4 x 3.6 cm. It shows minimal increase in size compared to the prior examination. This may be within measuremen t air. CUL-DE-SAC: Free fluid: None. Other: None. IMPRESSION: 1. Normal sonographic appearance of the kidneys. 2. 8.7 mm thickened heterogeneous endometrial stripe in this postmenopausal patient. 3. Probably stable septated left ovarian cyst. DATA REPOSITORY:
== END ==
PROVIDERS: PCP Internal Medicine; Visit Provider Obstetrics & Gynecology
DX: N83.292 Other ovarian cyst, left side (principal); R93.89 Abnormal findings on diagnostic imaging of other specified body structures
CPT/HCPCS: 76830; 76856

== ENCOUNTER 2022-02-17 16:37 | Outpatient (REF) | payer MEDICARE, SELFPAY ==
[2022-02-17 19:37] LABS: ALT 26 U/L (14-59); AST 23 U/L (15-37); Anion Gap 6.7 mmol/L (3-11); BUN 21 mg/dL (7-18); CO2 29.3 mmol/L (21.0-32.0); CREATININE 0.9 mg/dL (0.55-1.02); Calcium 8.7 mg/dL (8.5-10.1); Calculated LDL 94 mg/dL (<100); Chloride 106 mmol/L (98-107); Cholesterol 174 mg/dL (<200); Glucose 95 mg/dL (74-106); HDL Cholesterol 66 mg/dL (40-60); Potassium 4.6 mmol/L (3.5-5.1); Sodium 142 mmol/L (136-145); Triglyceride 71 mg/dL (<150)
== END 2022-02-17 16:38 | disposition home or self-care (01) ==
LOC: NCHCN 16:37
PROVIDERS: PCP Internal Medicine; Visit Provider Nurse Practitioner Family
DX: E78.5 Hyperlipidemia, unspecified (principal); I25.10 Atherosclerotic heart disease of native coronary artery without angina pectoris; R73.03 Prediabetes
CPT/HCPCS: 80048; 80061; 84450; 84460

== ENCOUNTER → 2022-02-26 03:46 | Outpatient (CLI) | payer MEDICARE, SELFPAY ==
--- NOTE | 2022-02-26 | DI.RAD_ITS ---
Exam(s) XR HIP LT COMPLETE AP PELVIS EXAM: XR HIP LT COMPLETE AP PELVIS CLINICAL HISTORY: LT HIP PAIN, M25.552. TECHNIQUE: 2D digital imaging was performed. COMPARISON: No exams were available for comparison FINDINGS: Two views: No evidence of pelvic nor hip fracture. There are advanced degenerative changes in both hips with si gnificant joint space narrowing and degenerative subarticular cysts on both sides of the joint, both in the femoral head and acetabulum on both sides. Also marginal osteophytes at the femoral head leve l. Additional lateral view of the left hip reveal similar findings. Remainder of the bones of the pelvis appear unremarkable as do the sacroiliac joints. Some disc spac e narrowing at L4-5 noted. IMPRESSION: Advanced degenerative changes both hips, perhaps slightly more so on the left side DATA REPOSITORY: RADIATION DOSE DELIVERED:
== END ==
PROVIDERS: PCP Internal Medicine; Visit Provider Nurse Practitioner Family
DX: M16.0 Bilateral primary osteoarthritis of hip (principal)
CPT/HCPCS: 73502

== ENCOUNTER → 2022-03-09 01:57 | Outpatient (CLI) | payer MEDICARE, SELFPAY ==
--- NOTE | 2022-03-09 | DI.MAMMO_ITS ---
Exam(s) MAMMO SCREENING EXAM: MAMMO SCREENING CLINICAL HISTORY: SCREENING, Z12.31, [facility], Z00.00. TECHNIQUE: Bilateral full field digital CC and MLO mammographic images were obtained with 3D tomosyn thesis and utilizing computer aided detection (CAD). COMPARISON: Prior mammograms were reviewed, the most recent being March 2020. FINDINGS: Asymmetric tissue seen bilaterally is unchanged. There are no new spiculated masses nor malignant appearing microcalcification groups. There is no significant architectural distortion nor skin thickening-retraction. IMPRESSION: No radiographic evidence of malignancy. BI-RADS Category 1 - Negative Breast Density - Category B - Scattered areas of fibroglandular density Breast density Category C or D implies that the patient has dense breast tissue. Dense breast tissue can make it harder to find cancer on a mammogram. Dense breast tissue is also associated with an incr eased risk of breast cancer. This information about the result of the mammogram report was provided to the patient to raise their awareness. Use this report when you speak with the patient about their risks for breast cancer, which includes their family history. At that time, you may recommend additional screening tests (Ultrasoun d or MRI) as these tests may add significant information. A negative radiographic report should not delay biopsy if a dominant or clinically suspicious mass is present. Up to ten percent of cancers are not identified on mammography. A negative report may reinforce clinical impression. Adenosis and dense breasts may obscure an underlying neoplasm. False positive reports average 6 to 10%. Patient will receive a letter notifying them of these results.
== END ==
PROVIDERS: PCP Internal Medicine; Visit Provider Nurse Practitioner Family
DX: Z12.31 Encounter for screening mammogram for malignant neoplasm of breast (principal)
CPT/HCPCS: 77063; 77067

== ENCOUNTER → 2022-05-11 10:02 | Outpatient (BNVA) | payer MEDICARE, SELFPAY | PROVIDERS: PCP Internal Medicine; Referring Provider Internal Medicine; Visit Provider Student in an Organized Health Care Education/Training Program | DX: M16.0 Bilateral primary osteoarthritis of hip (principal) | CPT/HCPCS: 99213 ==

== ENCOUNTER 2022-05-28 03:04 | Outpatient (CLI) | payer MEDICARE, SELFPAY ==
--- NOTE | 2022-05-28 07:45 | DI.RAD_ITS ---
Exam(s) RF JOINT INJECTION FLUORO GUID EXAM: RF JOINT INJECTION FLUORO GUID CLINICAL HISTORY: L HIP INJ UNDER FLUORO, LT HIP PAIN,M25.552 TECHNIQUE: 2D and realtime digital imaging was performed. COMPARISON: No exams were available for comparison FINDINGS: Fluoroscopy was utilized by Dr. Mcdonough during hip injection. Please see the procedure note. IMPRESSION: RADIATION DOSE DELIVERED: Ayahr=2.71 mGy Total DLP
--- NOTE | 2022-05-28 07:45 | DI.RAD_ITS ---
Exam(s) RF JOINT INJECTION FLUORO GUID EXAM: RF JOINT INJECTION FLUORO GUID CLINICAL HISTORY: R HIP INJ UNDER FLUORO, RT BO AIN, M25.552 TECHNIQUE: 2D and realtime digital imaging was performed. COMPARISON: No exams were available for comparison FINDINGS: Fluoroscopy was utilized by Dr. Mcdonough during right hip injection. Hard copy shows intra-articular right hip injection IMPRESSION: RADIATION DOSE DELIVERED: Ayahr=5.27 mGy Total DLP
--- NOTE | 2022-05-28 13:59 | W.PROCNOTE ---
Date of service: 05/28/22 Time of Service: 13:59 Procedure Note Date of procedure: 05/28/22 Procedure: Bilateral Hip Injection with Fluoroscopic Guidance Surgeon/Proceduralist/Physician: Zaki Mcdonough Procedure Diagnosis: Bilateral Hip Osteoarthritis Procedure Indications: Leonie has had persistent pain of the BILATERAL hip and groin. Noninvasive measures have been tried. To serve as both diagnostic and therapeutic, an injection under fluoroscopy was recommended. I had discussed the risks of the procedure and the patient elected to proceed. Procedure Description: Leonie was greeted in the flouroscopy room. The consent was reviewed with the patient and signed. The patient was then placed in the supine position on the fluoroscopy table. The RIGHT hip was then prepped with Chloraprep. The anterolateral injection starting point was identiifed by bony landmarks and fluoroscopy. The skin and soft tissue in the tract of the injection was anesthetized with 1% Lidocaine. A spinal needle was then inserted deep into the hip joint at the level of the lateral femoral neck under fluoroscopic guidance. A small amount of Omnipaque solution was injected to confirm intraarticular placement. Once confirmed, the hip was injected with 5cc of 0.5% Bupivicaine and 80mg of Depo-Medrol. A bandaid was placed on the injection site. The LEFT hip was then prepped with Chloraprep. The anterolateral injection starting point was identiifed by bony landmarks and fluoroscopy. The skin and soft tissue in the tract of the injection was anesthetized with 1% Lidocaine. A spinal needle was then inserted deep into the hip joint at the level of the lateral femoral neck under fluoroscopic guidance. A small amount of Omnipaque solution was injected to confirm intraarticular placement. Once confirmed, the hip was injected with 5cc of 0.5% Bupivicaine and 80mg of Depo-Medrol. A bandaid was placed on the injection site. The patient tolerated the procedure well.
[2022-05-28] MEDS: Bupivacaine 0.5% Pres-Free 10 ML VIAL 5 ML IJ ×2 (14:45→14:48)
[2022-05-28] MEDS: methylPREDNISolone ACETATE 80 MG/ML VIAL IM ×2 (14:46→14:49)
== END 2022-05-28 03:24 ==
LOC: DI 03:04
PROVIDERS: PCP Internal Medicine; Visit Provider Student in an Organized Health Care Education/Training Program
DX: M25.552 Pain in left hip (principal); M25.551 Pain in right hip
CPT/HCPCS: 20610; 20611; 77002; J1040

== ENCOUNTER 2022-06-17 22:30 | Emergency (ER) | payer MEDICARE, SELFPAY ==
[2022-06-17 22:35] VITALS: BP 155/60; PULSE 77; RESP 16; TEMP 36.2; O2SAT 93
--- NOTE | 2022-06-17 22:45 | RT.EKG_ITS ---
APPROVED REPORT Exam: Resting ECG Reason for Exam: chest pain Patient Location: E HR:67 bpm ECG Measurements Heart Rate 67 AXIS ME 172 P 2 QRSd 85 QRS 0 QT 391 T 7 QTc 412 Conclusion Sinus rhythm...normal P axis, V-rate 60- 99
[2022-06-17 22:58] LABS: Bilirubin Negative (Negative); Blood Negative (Negative); Clarity Sl Cloudy (Clear); Glucose Negative (Negative); Ketones Negative (Negative); Leukocyte Esterase Trace (Negative); Nitrite Negative (Negative); Specific Gravity >= 1.030 (1.005-1.025); Urobilinogen 0.2 EU/dL (Up TO 0.2); pH 5.5 (5-8)
--- NOTE | 2022-06-17 23:00 | DI.CT_ITS ---
Exam(s) CT CHEST PE ABD PELVIS W EXAM: CT CHEST PE ABD PELVIS W CLINICAL HISTORY: lower chest and upper abdominal pain. TECHNIQUE: Imaging Protocol: Axial computed tomography images with coronal and sagittal reformatted images were created and reviewed CONTRAST MATERIAL: Intravenous: Omnipaque 350 Contrast volume:100 ml Oral: no COMPARISON: CT CT ABDOMEN PELVIS W from 05/02/2021 US US PELVIS from 05/27/2021 FINDINGS: CHEST: Tracheobronchial tree: Patent where visualized. Mediastinum and Tiff[place]: No dominant adenopathy or fluid collection. Pulmonary parenchyma: Mild basilar atelectasis. No consolidation or dominant measurable mass. Pleura: No effusion or pneumothorax. Lymph nodes: Within normal limits. Aorta: Ascending aorta 4 cm. Mild atherosclerotic changes. Heart: Normal size. No visible coronary artery calcifications. No pericardial effusion. Bones: Mild degenerative changes. No lytic or blastic lesions. ABDOMEN: Liver: Normal density. No measurable mass. Gallbladder and biliary tract: No radiodense calculus or dilation. Pancreas: Normal density, no abnormal calcifications or inflammatory process. Spleen: Normal. Kidneys: Normal size, contour and axis. No radiodense stones or obstructive uropathy. No masses seen. Small bilateral cysts. Adrenal glands: No masses seen. Aorta: Abdominal portion non-dilated. Lymph nodes: Within normal limits. Soft tissues: Unremarkable. PELVIS: Bladder: Symmetric distention, no gross wall thickening. Urachal remnant again noted anterior dome of bladder, unchanged in appearance. Bowel: Mild sigmoid diverticulosis. No evidence of diverticulitis. No obstruction or bowel wall thi ckening. Peritoneal cavity: No ascites, collection or mesenteric inflammatory response. Bones: Unremarkable for age.. Reproductive organs: Mild interval increase in size of previously noted right ovarian cyst measuring 4.3 x 3.3 by 3.6 cm. This was measured at 3.2 x 2.9 x 2.9 cm on prior ultrasound. IMPRESSION: No acute abnormality in the chest abdomen or pelvis.. Mild overall increase in size of previously noted left ovarian cyst. Pelvic ultrasound could be cons idered for further evaluation. RADIATION DOSE DELIVERED: 1,189.99mGy.cm Total DLP DATA REPOSITORY: All CT scans at this facility are submitted to the National Radiology Data Registry (NRDR) Dose Index Registry (DIR) with the [employer] (ACR). RADIATION OPTIMIZATION: All CT scans at this facility use at least one of these dose optimization te chniques: automated exposure control; mA and/or kV adjustment per patient size (includes targeted exa ms where dose is matched to clinical indication); or iterative reconstruction.
--- NOTE | 2022-06-17 23:04 | ED.GENADUL_ITS ---
Discharge Plan Disposition Patient Disposition: Home Condition: Stable Discharge Details Clinical Impression: Acute epigastric pain Primary Care Provider: Clinton Corley ED Provider: Marek Stephens Home Meds and New Rx's Prescriptions: Continued multivitamin [Daily Multi-Vitamin] 1 EACH tablet 1 tab PO DAILY metoprolol succinate 50 mg tablet extended release 24 hr 50 mg PO DAILY Label Comments: TK 1 T PO QD atorvastatin 40 mg tablet 20 mg PO HS Label Comments: TK 1 T PO HS Discharge Instructions Instructions: Abdominal Pain (ED) Additional Instructions: Your blood work and cat scan did not show concerning findings at this time follow up with your primary care provider within 1 week if you feel more ill, have severe worsening pain or persistent vomiting return to the emergency department Medical Decision Making 76 yo female with hx of hld, prior vtach for which she is on metoprolol per patient and no known cad per patient, no prior stents, comes in with cc of upper mid abdominal pain since 9pm tonight while sitting reading a book. She states throughout the day she felt well, no n/v, no fevers, no dyspnea. She states she doesn't believe she has had pain like this before. no pain with exertion, no diaphoresis. She arrives stable caox4 speaking clearly and appears well in no distress. She localizes the pain to the epigastric area of the abdomen, has pain with light palpation to this area but none with deep palpation. No ruq, no lower abdominal tenderness. No rashes or lesions noted in the area she has pain. When the area is palpated her pain is 9/10 but when it is not palpated it is 3-4/10. Unclear etilogy for her pain, given her age will proceed with ekg, troponin, cbc, cmp, lipase and cta to evaluate for possible pe and also ct abdomen/pelvis to evaluate for possible cholecystitis and less likely sbo labs and imaging unremarkable, she is stable and now has no pain on exam and still no palpable or visible deformities on abdomen, has an unchanged likely benign lesion in her bladder seen on prior imaging. She was made aware of this lesion and advised to f/u with pcp for this, return precautions given Differential Diagnosis Differential Diagnosis: gastritis, chlecystitis, pancreatitis Medical Records Medical records reviewed: Yes I reviewed the patient's medical records. Imaging Data Radiologic Study: Attestation: I personally reviewed and interpreted this imaging study as follows: Imaging: CT Scan Radiologist's impression: No acute findings. No evidence of pulmonary emboli, aneurysm or dissection. No acute findings. Colonic diverticula. 3.9 cm left adnexal cyst. Small bladder urachal remnant and 1 cm soft tissue density in the dome wall at the urachal base unchanged since 2020. This may represent a benign process given its stability but suggest further evaluation with nonemergent bladder ultrasound. Lab Data Lab results reviewed: Yes I reviewed the patient's lab results. ECG Data Attestation: I personally reviewed and interpreted this ECG (s) as follows: Interpretation: sinus rhythm, rate of 67, no stemi, pr 172 HPI General Mode of arrival: ambulatory . Date/Time Provider Initiated Documentation: 06/17/22 22:32 . Limitations to Documentation: no limitations . Information obtained by: patient . History of Present Illness 76 year old F presents to the emergency department with the chief complaint of upper abdominal pain, described as moderate, with intensity rated at 4. Quality is described as stabbing, and is localized to the abdomen. Patient started experiencing this hour(s) (2) and it has been constant. No exacerbating factors reported . Related Data Home Medications Medication Instructions Recorded Confirmed multivitamin (Daily Multi-Vitamin 1 tab PO DAILY 05/20/15 06/17/22 tablet) atorvastatin 40 mg tablet 20 mg PO HS 03/30/20 06/17/22 metoprolol succinate 50 mg 50 mg PO DAILY 03/30/20 06/17/22 tablet,extended release 24 hr Allergies Allergy/AdvReac Type Severity Reaction Status Date / Time acetaminophen [From Kenn] AdvReac neuropathy Verified 06/17/22 22:39 chlorpheniramine AdvReac neuropathy Verified 06/17/22 22:39 [From Kenn] oxymetazoline HCl AdvReac neuropathy Verified 06/17/22 22:39 [From Kenn] pheniramine maleate AdvReac neuropathy Verified 06/17/22 22:39 [From Kenn] phenylephrine HCl AdvReac neuropathy Verified 06/17/22 22:39 [From Kenn] pseudoephedrine HCl AdvReac neuropathy Verified 06/17/22 22:39 [From Kenn] General Stated Complaint: Abd Prob EZEQUIEL: 3 Review of Systems All systems reviewed & are unremarkable except as noted in HPI and below Constitutional Constitutional: Denies chills, Denies fever(s) and Denies weakness Cardiovascular Cardiovascular: Denies dyspnea Respiratory Respiratory: Denies cough and Denies dyspnea Gastrointestinal Gastrointestinal: Denies nausea and Denies vomiting Genitourinary Genitourinary: Denies dysuria Integumentary/Breasts Skin/Breast: Denies rash Neurologic Neurologic: Denies weakness PFSH All Active Problems (Updated 06/18/22 @ 01:25 by Marek Stephens MD) Acute epigastric pain (Acute) Bilateral primary osteoarthritis of hip (Acute) Endometrial thickening on ultrasound (Acute) Persistent, 8.7 mm stripe on ultrasound 01/16. Previous endometrial sampling, inactive endometrium. Would consider hysteroscopy with dilation and curettage for further evaluation. Left ovarian cyst (Acute) Persistent, septated Abdominal pain (Acute) Lumbago (Acute) Hyperlipidemia (Chronic) CAD (coronary artery disease) (Chronic) Discharge planning issues (Acute) DVT prophylaxis (Acute) Dyslipidemia (Acute) Chest pain (Acute) Medical History Obesity Osteoarthritis Surgical History Colonoscopy - MAC (05/26/17) Hx of vein stripping S/P cardiac cath Social History Smoking/Tobacco Use Status: Never Smoking risk assessment performed?: Yes Alcohol Intake: current Alcohol Intake frequency: a few times a month Alcohol type: wine Drug use: Never Substance use type: does not use Do you feel safe at home: Yes Do you feel safe in your relationship?: Yes Female Reproductive History Menstrual Menopause type: natural History History 2 Para 2 Hx # Term Pregnancies 2 Multiple births Hx # Pregnancies Ectopic pregnancies AB induced Hx Number of Living Children 2 AB spontaneous Exam Const General: no acute distress Orientation: alert HENMT Head: normal to inspection Ears: external ears normal General nose exam: external nose normal Mouth: moist mucous membranes Eyes General: appearance normal, both eyes and all related structures Neck Neck: normal visual inspection Chest Chest: normal inspection of the chest Resp Effort & Inspection: normal respiratory effort and able to speak in complete sentences Auscultation: clear to auscultation bilaterally Cardio Rate: regular rate Heart Sounds: no murmurs GI Palpation: soft and tender Skin General skin exam: no rashes or lesions noted Neuro General: patient alert and patient oriented x3 Extrem General: normal to inspection Psych Mental Status: mental status grossly normal Course Vital Signs Vital signs: Vital Signs Temperature 36.2 C L 06/17/22 22:35 Pulse 77 06/17/22 22:35 Respiratory Rate 16 06/17/22 22:35 Blood Pressure 155/60 H 06/17/22 22:35 Pulse Oximetry 93 06/17/22 22:35 Temperature 36.2 C L 06/17/22 22:35 Pulse 77 06/17/22 22:35 Respiratory Rate 16 06/17/22 22:35 Respiratory Effort Non-Labored 06/17/22 22:39 Blood Pressure 155/60 H 06/17/22 22:35 Pulse Oximetry 93 06/17/22 22:35 Pain Level 7 06/17/22 22:35
[2022-06-17 23:05] LABS: Abs Immature Grans 0.03 10^3/uL (0.0-0.06); Absolute Basophil Count 0.03 10^3/uL (0.0-0.2); Absolute Eosinophil Count 0.15 10^3/uL (0.0-0.7); Absolute Monocyte Count 0.46 10^3/uL (0.1-0.8); Absolute Neutrophil Count 3.08 10^3/uL (1.2-6.7); Basophils % 0.5; Eosinophils % 2.3; HCT 38.6 % (36.0-46.0); HGB 12.8 g/dL (11.2-15.7); Immature Grans % 0.5; Lymphocytes % 41.9; MCH 32.7 pg (27.0-33.0); MCHC 33.2 % (32.0-36.0); MCV 99 fL (80-95); Monocytes % 7.1; Neutrophils % 47.7; Platelet Count 221 10^3/uL (130-400); RBC 3.92 10^6/uL (3.93-5.22); RDW 12.2 % (11.7-14.6); RDW-SD 43.8 fL; WBC 6.45 10^3/uL (4.4-10.8)
[2022-06-17 23:08] LABS: Bacteria Few HPF (Negative); C & S Indicated? No/Sq. Contamination; Crystals Negative HPF (Negative); Epithelial Cells Moderate HPF (Negative); Mucus Moderate (Negative); RBC 0-2 HPF (0-2)
[2022-06-17 23:23] LABS: ALT 29 U/L (14-59); AST 56 U/L (15-37); Albumin 4.1 g/dL (3.4-5.0); Alkaline Phosphatase 73 U/L (46-116); Anion Gap 4.1 mmol/L (3-11); BUN 23 mg/dL (7-18); Bilirubin, Total 0.4 mg/dL (0.2-1.0); CO2 31.9 mmol/L (21.0-32.0); CREATININE 0.9 mg/dL (0.55-1.02); Calcium 9.1 mg/dL (8.5-10.1); Chloride 102 mmol/L (98-107); Estimated GFR 65.84 (mL/min/1.73m2); Glucose 108 mg/dL (74-106); Lipase 223 U/L (73-393); Magnesium 2.2 mg/dL (1.8-2.4); Potassium 4.2 mmol/L (3.5-5.1); Sodium 138 mmol/L (136-145); Total Protein 8.1 g/dL (6.4-8.2); Troponin I < 50 ng/L (<or=60)
[2022-06-18] MEDS: Omnipaque 350 MG/ML 100 ML BTL IJ (00:29)
[2022-06-18] MEDS: Normal Saline - Diluent 50 ML VIAL IV (00:30)
[2022-06-18 01:03] VITALS: BP 119/65; PULSE 75; PULSE 79; RESP 14; O2SAT 92
[2022-06-18 01:04] VITALS: PULSE 85; RESP 21; O2SAT 92
[2022-06-18 01:10] VITALS: PULSE 81; RESP 20; O2SAT 91
--- NOTE | 2022-06-18 01:14 | DI.VRAD_ITS ---
PROCEDURE INFORMATION: Exam: CTA Chest With Contrast Exam date and time: 06/17/2022 11:43 PM Age: 76 years old Clinical indication: Other: Lower chest and upper abdominal pain TECHNIQUE: Imaging protocol: Computed tomographic angiography of the chest with contrast. Radiation optimization: All CT scans at this facility use at least one of these dose optimization techniques: automated exposure control; mA and/or kV adjustment per patient size (includes targeted exams where dose is matched to clinical indication); or iterative reconstruction. Contrast material: OMNI 350; Contrast volume: 100 ml; Contrast route: INTRAVENOUS (IV); COMPARISON: 1. CT ABDOMEN PELVIS W 05/02/2021 11:07 PM 2. VASCULATURE: FINDINGS: Pulmonary arteries: Normal. No pulmonary emboli. Aorta: Atherosclerotic disease. No aortic aneurysm or dissection. The Lungs: Subsegmental atelectasis at the lung bases. Pleural spaces: Unremarkable. No pneumothorax. No pleural effusion. Heart: Heart size is normal. No pericardial effusion. Coronary arteries: No coronary artery calcifications. Lymph nodes: Unremarkable. No enlarged lymph nodes. Bones/joints: Mild degenerative changes throughout the spine. Soft tissues: Unremarkable. IMPRESSION: No acute findings. No evidence of pulmonary emboli, aneurysm or dissection. PROCEDURE INFORMATION: Exam: CT Abdomen And Pelvis With Contrast Exam date and time: 06/17/2022 11:43 PM Clinical indication: Other: Lower chest and upper abdominal pain TECHNIQUE: Imaging protocol: Computed tomography of the abdomen and pelvis with contrast. COMPARISON: No relevant prior studies available. FINDINGS: Liver: Normal. No mass. Gallbladder and bile ducts: Normal. No calcified stones. No ductal dilation. Pancreas: Normal. No ductal dilation. Spleen: Normal. No splenomegaly. Adrenal glands: Normal. No mass. Kidneys and ureters: Kidneys enhance symmetrically. There are bilateral renal cysts measuring up to 1.2 cm on the right. No stones or hydronephrosis. Stomach and bowel: Stomach and small bowel are unremarkable. Colonic diverticulosis. Appendix: Normal appendix. Intraperitoneal space: Unremarkable. No free air. No significant fluid collection. Vasculature: Unremarkable. No abdominal aortic aneurysm. Lymph nodes: Unremarkable. No enlarged lymph nodes. Urinary bladder: There is a 1 x 0.8 cm soft tissue density finding in the dome of the bladder associated with a urachal remnant unchanged since 2020. Reproductive: There is a left adnexal 3.3 x 3.9 cm cyst. Right adnexal region is unremarkable. Normal uterus. Bones/joints: Mild degenerative changes in the spine and advanced degenerative changes in the hips. No acute fracture. Soft tissues: Unremarkable. IMPRESSION: No acute findings. Colonic diverticula. 3.9 cm left adnexal cyst. Small bladder urachal remnant and 1 cm soft tissue density in the dome wall at the urachal base unchanged since 2020. This may represent a benign process given its stability but suggest further evaluation with nonemergent bladder ultrasound. Dictated and Authenticated by: Shelly Yates MD. Ordering:GERARD Jara MD
[2022-06-18 01:16] VITALS: BP 112/68; PULSE 79; PULSE 82; RESP 19; O2SAT 92
[2022-06-18 01:20] VITALS: PULSE 81; RESP 22; O2SAT 92
== END 2022-06-18 01:32 | disposition home or self-care (01) ==
PROVIDERS: Emergency Provider Emergency Medicine; PCP Internal Medicine
DX: R10.13 Epigastric pain (principal); E78.5 Hyperlipidemia, unspecified
CPT/HCPCS: 71275; 74177; 80053; 83690; 93005; 99285; 81003; 81015; 83735; 84484; 85025; 93010; J3490

== ENCOUNTER 2022-07-17 00:04 | Outpatient (CLI) | payer MEDICARE, SELFPAY ==
--- NOTE | 2022-07-17 06:30 | DI.US_ITS ---
Exam(s) US PELVIS EXAM: US PELVIS CLINICAL HISTORY: re-check ovary,lt ovarian cyst,n83.202. TECHNIQUE: Transabdominal pelvic ultrasound was performed using standard protocol. COMPARISON: US US PELVIS TRANSVAGINAL from 01/08/2022 FINDINGS: UTERUS: Position: Anteverted. Size: 7.7 long by 4.4 AP by 4.9 transverse cm Endometrium: 1.0 cm. The endometrium is thickened in this postmenopausal patient. Myometrium: Unremarkable. Cervix: Unremarkable. OVARIES: Right: 2.3 x 1 x 2.5 cm Cyst or mass: No suspicious cystic or solid masses. Left: 4.4 x 4.8 x 3.4 cm Cyst or mass: There is again seen a cyst on the left ovary. It measures 3.6 x 3 x 3.6 cm. Further c haracterization is limited on this transabdominal examination. CUL-DE-SAC: Free fluid: None. Other: None. IMPRESSION: 1. Thickened endometrial stripe at 1 cm in this postmenopausal patient. Follow-up as clinically appr opriate. 2. Persistent left ovarian cystic lesion. It measures 3.6 x 3 x 3.6 cm on the current examination. This compares to 4.7 x 4.4 x 3.6 cm on the prior transvaginal examination. DATA REPOSITORY:
== END 2022-07-17 00:24 ==
LOC: DI 00:04
PROVIDERS: PCP Internal Medicine; Visit Provider Obstetrics & Gynecology
DX: N83.202 Unspecified ovarian cyst, left side (principal); R93.89 Abnormal findings on diagnostic imaging of other specified body structures
CPT/HCPCS: 76856

== ENCOUNTER 2022-08-19 14:18 | Emergency (ER) | payer MEDICARE, SELFPAY ==
[2022-08-19 14:21] VITALS: BP 152/74; PULSE 73; RESP 16; TEMP 35.9; O2SAT 97
--- NOTE | 2022-08-19 15:00 | DI.CT_ITS ---
Exam(s) CT HEAD CERV SPINE FACIAL WO EXAM: CT HEAD CERV SPINE FACIAL WO CLINICAL HISTORY: fall on ice, head injury. TECHNIQUE: Imaging Protocol: Axial computed tomography images with coronal and sagittal reformatted images were created and reviewed COMPARISON: CT HEAD WITHOUT CONTRAST from 08/05/2015 FINDINGS: CT Head: Ventricles and Extra axial spaces: Normal in size and morphology for the patient's age. Hemorrhage: None. Cerebral parenchyma: There is no acute territorial infarct. Midline shift: None. Brainstem/Cerebellum: Normal. Calvarium: Normal. Visualized Paranasal sinuses/Mastoids: Clear. Soft Tissues: Unremarkable. CT Face: Facial Bones: No definite fracture is noted in facial bones. Sinuses and Mastoids: There is mild mucosal thickening in the maxillary sinuses bilaterally. The re maining visualized paranasal sinuses and mastoid air cells are clear. Globes, extraocular muscles, optic nerves and retrobulbar fat: Normal. Upper aerodigestive tract: Normal. Mandible and bilateral temporomandibular joints: Normal. Soft tissues: Normal. CT Cervical Spine: Bones: No acute fracture or subluxation. There are degenerative changes seen in the cervical spine. Soft Tissues: Unremarkable. Lung Apices: Clear. IMPRESSION: 1. No acute intracranial process. 2. No acute fracture or subluxation in the cervical spine. 3. No acute facial fracture. 4. Findings were discussed with Herbert Moon at 4:23 p.m. on 08/19/2022. RADIATION DOSE DELIVERED: 2,116.92mGy.cm Total DLP DATA REPOSITORY: All CT scans at this facility are submitted to the National Radiology Data Registry (NRDR) Dose Index Registry (DIR) with the [employer] (ACR). RADIATION OPTIMIZATION: All CT scans at this facility use at least one of these dose optimization te chniques: automated exposure control; mA and/or kV adjustment per patient size (includes targeted exa ms where dose is matched to clinical indication); or iterative reconstruction.
--- NOTE | 2022-08-19 15:05 | W.ED.GENAD ---
Discharge Plan Disposition Patient Disposition: Home Condition: Stable Discharge Details Clinical Impression: Head injury, Contusion of elbow Primary Care Provider: Clinton Corley ED Provider: Herbert Moon Home Meds and New Rx's Prescriptions: Continued multivitamin [Daily Multi-Vitamin] 1 EACH tablet 1 tab PO DAILY metoprolol succinate 50 mg tablet extended release 24 hr 50 mg PO DAILY Patient Comments: TK 1 T PO QD atorvastatin 40 mg tablet 20 mg PO HS Patient Comments: TK 1 T PO HS Discharge Instructions Instructions: Head Injury (ED), Contusion in Adults (ED) Additional Instructions: CT imaging and x-ray are both unremarkable for any obvious emergent process. Cool and/or warm compresses every 2 hours for 20 minutes. Gentle stretching as tolerated. [id number] medications such as Tylenol and/or Motrin as directed for discomfort. Please watch for new or worsening symptoms and return to the ER for any concerns. Lastly, I would like you to contact your primary care provider tomorrow to discuss your ER visit and need for outpatient reevaluation. Discharge Data Discharge Date/Time-TO BE ENTERED AT DEPARTURE: 08/19/22 17:05 Medical Decision Making <BAHMAN Stephens - Last Filed: 08/20/22 21:35> 76-year-old female with history of hypertension presents with fall on ice. Has a hematoma on her scalp after fall. She was ambulatory without difficulty and her neurological exam is benign Pending CT scan at this time <BAHMAN Caldwell - Last Filed: 08/19/22 16:53> 76-year-old female with history of hypertension presents with fall on ice. Has a hematoma on her scalp after fall. She was ambulatory without difficulty and her neurological exam is benign Pending CT scan at this time 1530: Herbert Moon PA-C I assumed care of this 76-year-old female from my colleague BAHMAN Epperson, please see her initial HPI and examination. At time of signout awaiting head CT, cervical spine CT and left elbow x-ray status post mechanical slip and fall, not anticoagulated. CT imaging and x-ray are both unremarkable. Discussed findings with patient. She is relieved. Remains neurologically intact. Patient ambulates without difficulty. Standard discharge and return precautions were provided. Patient understands, is agreeable to this plan, and has no additional questions or concerns upon discharge. This documentation was generated using [employer] system, please disregard any oddities of phrase or misspellings. Medical Records Medical records reviewed: Yes I reviewed the patient's medical records. Imaging Data Radiologic Study: Attestation: I personally reviewed and interpreted this imaging study as follows: Imaging: X-Ray Radiologist's impression: Exam(s) XR ELBOW LT COMPLETE EXAM: XR ELBOW LT COMPLETE CLINICAL HISTORY: pain post fall. TECHNIQUE: 2D digital imaging was performed of the left elbow. Three images were obtained. AP, lateral and oblique views were obtained. COMPARISON: No exams were available for comparison FINDINGS: BONES: No acute fracture is present. No bony destructive lesion is seen. There is a spur at the coronoid process. JOINTS: The elbow is normally aligned. No joint effusion is seen. SOFT TISSUE: Normal. IMPRESSION: No acute fracture or dislocation. Radiologic Study #2: Attestation: I personally reviewed and interpreted this imaging study as follows: Imaging: CT Scan Radiologist's impression: Exam(s) CT HEAD CERV SPINE FACIAL WO EXAM: CT HEAD CERV SPINE FACIAL WO CLINICAL HISTORY: fall on ice, head injury. TECHNIQUE: Imaging Protocol: Axial computed tomography images with coronal and sagittal reformatted images were created and reviewed COMPARISON: CT HEAD WITHOUT CONTRAST from 08/05/2015 FINDINGS: CT Head: Ventricles and Extra axial spaces: Normal in size and morphology for the patient's age. Hemorrhage: None. Cerebral parenchyma: There is no acute territorial infarct. Midline shift: None. Brainstem/Cerebellum: Normal. Calvarium: Normal. Visualized Paranasal sinuses/Mastoids: Clear. Soft Tissues: Unremarkable. CT Face: Facial Bones: No definite fracture is noted in facial bones. Sinuses and Mastoids: There is mild mucosal thickening in the maxillary sinuses bilaterally. The remaining visualized paranasal sinuses and mastoid air cells are clear. Globes, extraocular muscles, optic nerves and retrobulbar fat: Normal. Upper aerodigestive tract: Normal. Mandible and bilateral temporomandibular joints: Normal. Soft tissues: Normal. CT Cervical Spine: Bones: No acute fracture or subluxation. There are degenerative changes seen in the cervical spine. Soft Tissues: Unremarkable. Lung Apices: Clear. IMPRESSION: 1. No acute intracranial process. 2. No acute fracture or subluxation in the cervical spine. 3. No acute facial fracture. 4. Findings were discussed with Herbert Moon at 4:23 p.m. on 08/19/2022. HPI <BAHMAN Stephens - Last Filed: 08/20/22 21:35> General Date/Time Provider Initiated Documentation: 08/19/22 14:32. HPI Narrative: This 76-year-old female presents with report of head injury. She states she fell and hit her head. She denies any loss of consciousness or history of coagulopathy. The event occurred at 145. She states she felt slightly dizzy after the event but this has resolved. She has a mild headache but denies any additional complaints at this time. Related Data Home Medications Medication Instructions Recorded Confirmed multivitamin (Daily Multi-Vitamin 1 tab PO DAILY 05/20/15 08/19/22 tablet) atorvastatin 40 mg tablet 20 mg PO HS 03/30/20 08/19/22 metoprolol succinate 50 mg 50 mg PO DAILY 03/30/20 08/19/22 tablet,extended release 24 hr Allergies Allergy/AdvReac Type Severity Reaction Status Date / Time acetaminophen [From Kenn] AdvReac neuropathy Verified 08/19/22 16:45 chlorpheniramine AdvReac neuropathy Verified 08/19/22 16:45 [From Kenn] oxymetazoline HCl AdvReac neuropathy Verified 08/19/22 16:45 [From Kenn] pheniramine maleate AdvReac neuropathy Verified 08/19/22 16:45 [From Kenn] phenylephrine HCl AdvReac neuropathy Verified 08/19/22 16:45 [From Kenn] pseudoephedrine HCl AdvReac neuropathy Verified 08/19/22 16:45 [From Kenn] General Stated Complaint: HeadInjury EZEQUIEL: 3 PFSH <BAHMAN Stephens - Last Filed: 08/20/22 21:35> All Active Problems (Updated 08/19/22 @ 16:19 by BAHMAN Caldwell) Head injury (Acute) Contusion of elbow (Acute) Bilateral primary osteoarthritis of hip (Acute) Endometrial thickening on ultrasound (Acute) Persistent, 8.7 mm stripe on ultrasound 01/16. Previous endometrial sampling, inactive endometrium. Would consider hysteroscopy with dilation and curettage for further evaluation. Left ovarian cyst (Acute) Persistent, septated Abdominal pain (Acute) Lumbago (Acute) Hyperlipidemia (Chronic) CAD (coronary artery disease) (Chronic) Discharge planning issues (Acute) DVT prophylaxis (Acute) Dyslipidemia (Acute) Chest pain (Acute) Medical History Obesity Osteoarthritis Surgical History Colonoscopy - MAC (05/26/17) Hx of vein stripping S/P cardiac cath Social History Smoking/Tobacco Use Status: Never Smoking risk assessment performed?: Yes Alcohol Intake: current Alcohol Intake frequency: a few times a month Alcohol type: wine Drug use: Never Substance use type: does not use Do you feel safe at home: Yes Do you feel safe in your relationship?: Yes Female Reproductive History Menstrual Menopause type: natural History History 2 Para 2 Hx # Term Pregnancies 2 Multiple births Hx # Pregnancies Ectopic pregnancies AB induced Hx Number of Living Children 2 AB spontaneous Exam <BAHMAN Stephens - Last Filed: 08/20/22 21:35> Const General: cooperative, comfortable and no acute distress HENMT Other: Hematoma noted to right occipital region, no hemotympanum, no crepitus Eyes Pupils: PERRL EOM: EOM intact bilaterally Neck Other: No midline tenderness Chest Chest: normal inspection of the chest Resp Effort & Inspection: normal respiratory effort Cardio Rate: regular rate Rhythm: regular rhythm Neuro General: patient alert and patient oriented x3 Cognition: normal cognition Speech: speech normal Gait: normal gait Sensory Exam: no sensory deficits noted Extrem General: normal to inspection Course <BAHMAN Stephens - Last Filed: 08/20/22 21:35> Vital Signs Vital signs: Vital Signs Temperature 35.9 C L 08/19/22 14:21 Pulse 73 08/19/22 14:21 Respiratory Rate 16 08/19/22 14:21 Blood Pressure 152/74 H 08/19/22 14:21 Pulse Oximetry 97 08/19/22 14:21 Temperature 35.9 C L 08/19/22 14:21 Temperature Source Tympanic 08/19/22 14:21 Pulse 73 08/19/22 14:21 Respiratory Rate 16 08/19/22 14:21 Blood Pressure 152/74 H 08/19/22 14:21 Blood Pressure Position Sitting 08/19/22 14:21 Pulse Oximetry 97 08/19/22 14:21 Oxygen Delivery Method Room Air 08/19/22 14:21 Oxygen Flow Rate 0 08/19/22 14:21 Pain Level 5 08/19/22 14:21 Sign Out <BAHMAN Stephens - Last Filed: 08/20/22 21:35> Sign Out Data: Sign Out Comment: signed out to CB pending ct head and left elbow xray pending dc Last updated by Anh Epperson PA at 08/19/22 16:01
--- NOTE | 2022-08-19 15:30 | DI.RAD_ITS ---
Exam(s) XR ELBOW LT COMPLETE EXAM: XR ELBOW LT COMPLETE CLINICAL HISTORY: pain post fall. TECHNIQUE: 2D digital imaging was performed of the left elbow. Three images were obtained. AP, lat eral and oblique views were obtained. COMPARISON: No exams were available for comparison FINDINGS: BONES: No acute fracture is present. No bony destructive lesion is seen. There is a spur at the coron oid process. JOINTS: The elbow is normally aligned. No joint effusion is seen. SOFT TISSUE: Normal. IMPRESSION: No acute fracture or dislocation. DATA REPOSITORY: RADIATION DOSE DELIVERED:
[2022-08-19 16:05] VITALS: BP 159/84; PULSE 72; RESP 19; TEMP 36.6; O2SAT 93
[2022-08-19 17:07] VITALS: BP 159/84
== END 2022-08-19 17:05 | disposition home or self-care (01) ==
PROVIDERS: Emergency Provider Physician Assistant; PCP Internal Medicine
DX: S50.02XA Contusion of left elbow, initial encounter (principal); S00.03XA Contusion of scalp, initial encounter; W00.0XXA Fall on same level due to ice and snow, initial encounter; I10 Essential (primary) hypertension
CPT/HCPCS: 99284; 70450; 70486; 72125; 73080; 99282

== ENCOUNTER 2022-09-10 01:23 | Outpatient (CLI) | payer MEDICARE, SELFPAY ==
--- NOTE | 2022-09-10 07:15 | DI.RAD_ITS ---
Exam(s) RF JOINT INJECTION FLUORO GUID EXAM: RF JOINT INJECTION FLUORO GUID CLINICAL HISTORY: L HIP INJ UNDER FLUORO,oa lt hip, m16.12. TECHNIQUE: Fluoroscopy was provided for the referring physician for guidance with performing left hi p injection procedure. COMPARISON: No exams were available for comparison FINDINGS: Please see procedure note for details. Fluoro time: 3 seconds RADIATION DOSE DELIVERED: azucena Poon=0.92 mGy
--- NOTE | 2022-09-10 07:15 | DI.RAD_ITS ---
Exam(s) RF JOINT INJECTION FLUORO GUID EXAM: RF JOINT INJECTION FLUORO GUID CLINICAL HISTORY: R HIP INJ UNDER FLUORO, rt hip pain, m25.551. TECHNIQUE: Fluoroscopy was provided for the referring physician for guidance with performing right h ip injection procedure. COMPARISON: No exams were available for comparison FINDINGS: Please see procedure note for details. Fluoro time: 3 seconds RADIATION DOSE DELIVERED: azucena Poon=0.92 mGy
[2022-09-10] MEDS: methylPREDNISolone ACETATE 80 MG/ML VIAL IM ×2 (14:09→14:10)
[2022-09-10] MEDS: Bupivacaine 0.5% Pres-Free 10 ML VIAL 5 ML IJ (14:10)
--- NOTE | 2022-09-10 14:24 | W.PROCNOTE ---
Date of service: 09/10/22 Time of Service: 14:10 Procedure Note Date of procedure: 09/10/22 Procedure: Bilateral Hip Injection with Fluoroscopic Guidance Surgeon/Proceduralist/Physician: Zaki Mcdonough Procedure Diagnosis: Bilateral Hip Osteoarthritis Procedure Indications: Leonie has had persistent pain of the BILATERAL hip and groin. Noninvasive measures have been tried. To serve as both diagnostic and therapeutic, an injection under fluoroscopy was recommended. I had discussed the risks of the procedure and the patient elected to proceed. Procedure Description: Leonie was greeted in the flouroscopy room. The consent was reviewed with the patient and signed. The patient was then placed in the supine position on the fluoroscopy table. The RIGHT hip was then prepped with Chloraprep. The anterolateral injection starting point was identiifed by bony landmarks and fluoroscopy. The skin and soft tissue in the tract of the injection was anesthetized with 1% Lidocaine. A spinal needle was then inserted deep into the hip joint at the level of the lateral femoral neck under fluoroscopic guidance. A small amount of Omnipaque solution was injected to confirm intraarticular placement. Once confirmed, the hip was injected with 5cc of 0.5% Bupivicaine and 80mg of Depo-Medrol. A bandaid was placed on the injection site. The LEFT hip was then prepped with Chloraprep. The anterolateral injection starting point was identiifed by bony landmarks and fluoroscopy. The skin and soft tissue in the tract of the injection was anesthetized with 1% Lidocaine. A spinal needle was then inserted deep into the hip joint at the level of the lateral femoral neck under fluoroscopic guidance. A small amount of Omnipaque solution was injected to confirm intraarticular placement. Once confirmed, the hip was injected with 5cc of 0.5% Bupivicaine and 80mg of Depo-Medrol. A bandaid was placed on the injection site. The patient tolerated the procedure well.
== END 2022-09-10 01:43 ==
LOC: DI 01:23
PROVIDERS: PCP Internal Medicine; Visit Provider Student in an Organized Health Care Education/Training Program
DX: M16.12 Unilateral primary osteoarthritis, left hip (principal); M25.551 Pain in right hip
CPT/HCPCS: 20610; 77002; J1040

== ENCOUNTER 2022-09-14 20:02 | Emergency (ER) | payer MEDICARE, SELFPAY ==
[2022-09-14 20:06] VITALS: BP 149/70; PULSE 75; RESP 16; TEMP 37; O2SAT 99
[2022-09-14 20:14] VITALS: RESP 16
[2022-09-14 21:21] VITALS: BP 162/81
--- NOTE | 2022-09-14 22:17 | ED.GENADUL_ITS ---
Discharge Plan Disposition Patient Disposition: Home Condition: Good Discharge Details Clinical Impression: Elevated blood pressure reading Primary Care Provider: Clinton Corley ED Provider: Maureen Grimm Home Meds and New Rx's Prescriptions: Continued multivitamin [Daily Multi-Vitamin] 1 EACH tablet 1 tab PO DAILY metoprolol succinate 50 mg tablet extended release 24 hr 50 mg PO DAILY Patient Comments: TK 1 T PO QD atorvastatin 40 mg tablet 20 mg PO HS Patient Comments: TK 1 T PO HS Discharge Instructions Additional Instructions: As we discussed, your elevated blood pressure, while concerning in the long run, does not show any indication of acute complications such as stroke, heart attack at this time. Please continue your medications as previously prescribed. Please call your primary care provider tomorrow to schedule follow-up appointment. Please monitor your blood pressure 3 times per week at varying times. If you develop sudden onset of headache, vision changes, weakness, chest pain, shortness of breath or other new/worsening symptom please seek care urgently once again. Referrals: Clinton Corley MD [Primary Care Provider] - Discharge Data Discharge Date/Time-TO BE ENTERED AT DEPARTURE: 09/14/22 23:05 Medical Decision Making Patient is a pleasant 76-year-old female with past medical history significant for nonsustained V. tach, CAD, on beta-mic, with chief complaint of elevated blood pressure reading. She reports that she is feeling well but that she has been checking her blood pressure at home and has noted that its been elevated with a systolic of the 140s. She reports that this is significantly elevated for her. She has not been having headache, weakness, vision changes, sensory deficits. She denies any chest pain. No shortness of breath. She reports that she has been active as is her baseline, and walking her dog daily without any type of symptoms. She does state that she fell a few weeks ago and since then has had some intermittent abdominal discomfort but feels that this is associated with sore muscle and is not her exertionally based. No change in bowel or bladder habits. On exam, patient appears nontoxic. She has a blood pressure of 131/80 at the time I evaluated her. Lungs are clear. Normal cardiac exam. Abdomen is benign. She and I discussed elevated blood pressure at length. She has a good relationship with her primary care and feels that she can reach out to discuss alterations of her current blood pressure medication. She is not having any evidence of endorgan damage at this time and I do not feel that emergent evaluation is warranted. Patient I did discuss this as well and she agrees and would like to hold off on further evaluation at this time given reassuring history and readings here. Return precautions were discussed, in particular signs of endorgan damage associated with elevated blood pressure. I encourage close follow-up and she will call primary care tomorrow. We also discussed checking her blood pressure at home. It does sound like she has been taking her blood pressure, noting it to be elevated and taking it again, only to find it more Elevated. All of her questions and concerns were addressed and she is in agreement this plan. HPI General Date/Time Provider Initiated Documentation: 09/14/22 20:04 . Limitations to Documentation: no limitations . Information obtained by: patient and RN notes reviewed . History of Present Illness 76 year old F presents to the emergency department with the chief complaint of asymptomatic elevated blood pressure, Patient started experiencing this unknown (began checking her BP when her got a new cuff) and it has been intermittent. No relieving factors improve symptom(s), No exacerbating factors reported . Patient notes no other symptoms.. Patient did receive the following treatments prior to arrival, none (is chronically on b-mic without recent change) Related Data Home Medications Medication Instructions Recorded Confirmed multivitamin (Daily Multi-Vitamin 1 tab PO DAILY 05/20/15 08/19/22 tablet) atorvastatin 40 mg tablet 20 mg PO HS 03/30/20 08/19/22 metoprolol succinate 50 mg 50 mg PO DAILY 03/30/20 08/19/22 tablet,extended release 24 hr Allergies Allergy/AdvReac Type Severity Reaction Status Date / Time acetaminophen [From Kenn] AdvReac neuropathy Verified 08/19/22 16:45 chlorpheniramine AdvReac neuropathy Verified 08/19/22 16:45 [From Kenn] oxymetazoline HCl AdvReac neuropathy Verified 08/19/22 16:45 [From Kenn] pheniramine maleate AdvReac neuropathy Verified 08/19/22 16:45 [From Kenn] phenylephrine HCl AdvReac neuropathy Verified 08/19/22 16:45 [From Kenn] pseudoephedrine HCl AdvReac neuropathy Verified 08/19/22 16:45 [From Kenn] General Stated Complaint: GenMedical EZEQUIEL: 3 Review of Systems Constitutional Constitutional: Reports as per HPI, Denies chills, Denies fever(s) and Denies headache(s) ENT Ears, Nose, Mouth, and Throat: Denies headache(s) Cardiovascular Cardiovascular: Reports as per HPI, Denies chest pain and Denies dyspnea Respiratory Respiratory: Reports as per HPI, Denies cough and Denies dyspnea Neurologic Neurologic: Denies headache(s) PFSH All Active Problems (Updated 09/14/22 @ 22:42 by BAHMAN Boles) Head injury (Acute) Contusion of elbow (Acute) Elevated blood pressure reading (Acute) Bilateral primary osteoarthritis of hip (Acute) Endometrial thickening on ultrasound (Acute) Persistent, 8.7 mm stripe on ultrasound 01/16. Previous endometrial sampling, inactive endometrium. Would consider hysteroscopy with dilation and curettage for further evaluation. Left ovarian cyst (Acute) Persistent, septated Abdominal pain (Acute) Lumbago (Acute) Hyperlipidemia (Chronic) CAD (coronary artery disease) (Chronic) Discharge planning issues (Acute) DVT prophylaxis (Acute) Dyslipidemia (Acute) Chest pain (Acute) Medical History Obesity Osteoarthritis Surgical History Colonoscopy - MAC (05/26/17) Hx of vein stripping S/P cardiac cath Social History Smoking/Tobacco Use Status: Never Smoking risk assessment performed?: Yes Alcohol Intake: current Alcohol Intake frequency: a few times a month Alcohol type: wine Drug use: Never Substance use type: does not use Do you feel safe at home: Yes Do you feel safe in your relationship?: Yes Female Reproductive History Menstrual Menopause type: natural History History 2 Para 2 Hx # Term Pregnancies 2 Multiple births Hx # Pregnancies Ectopic pregnancies AB induced Hx Number of Living Children 2 AB spontaneous Exam Const General: cooperative, healthy appearing, comfortable and no acute distress Nutritional Appearance: average body habitus and well nourished Orientation: alert and awake Resp Effort & Inspection: normal respiratory effort, able to speak in complete sentences and no respiratory distress Auscultation: clear to auscultation bilaterally Cardio Rate: regular rate Rhythm: regular rhythm Heart Sounds: S1 normal and S2 normal Skin General skin exam: no rashes or lesions noted Neuro General: patient alert and patient awake Cognition: normal cognition Speech: speech normal Gait: normal gait Psych Appearance: grossly normal and well kempt Mental Status: mental status grossly normal Speech and Movement: speech and movement normal Course Vital Signs Vital signs: Vital Signs Temperature 37.0 C 09/14/22 20:06 Pulse 75 09/14/22 20:06 Respiratory Rate 16 09/14/22 20:06 Blood Pressure 149/70 H 09/14/22 20:06 Pulse Oximetry 99 09/14/22 20:06 Temperature 37.0 C 09/14/22 20:06 Temperature Source Oral 09/14/22 20:06 Pulse 75 09/14/22 20:06 Respiratory Rate 16 09/14/22 20:14 Respiratory Effort Normal 09/14/22 20:14 Blood Pressure 162/81 H 09/14/22 21:21 Blood Pressure Position Sitting 09/14/22 20:06 Pulse Oximetry 99 09/14/22 20:06 Oxygen Delivery Method Room Air 09/14/22 20:06 Oxygen Flow Rate 0 09/14/22 20:06 Pain Level 0 09/14/22 20:06
[2022-09-14 23:04] VITALS: BP 133/65; RESP 18; O2SAT 98
== END 2022-09-14 23:05 | disposition home or self-care (01) ==
PROVIDERS: Emergency Provider Physician Assistant; PCP Nurse Practitioner Family
DX: R03.0 Elevated blood-pressure reading, without diagnosis of hypertension (principal); I25.10 Atherosclerotic heart disease of native coronary artery without angina pectoris
CPT/HCPCS: 99282

== ENCOUNTER 2022-12-09 02:47 | Outpatient (CLI) | payer MEDICARE, SELFPAY ==
--- NOTE | 2022-12-09 11:00 | DI.RAD_ITS ---
Exam(s) XR CHEST 2V PA LATERAL EXAM: XR CHEST 2V PA LATERAL CLINICAL HISTORY: FOCAL CHEST PAIN AT LOWER RT RIB CAGE, R07.81. TECHNIQUE: 2D digital imaging was performed. COMPARISON: CR,XR XR CHEST 2V PA LATERAL from 03/30/2020 FINDINGS: 2 views: Heart size is normal. The mediastinum is not widened. Lungs are clear. No infiltrates nor pleural effusions. IMPRESSION: No acute pulmonary findings. DATA REPOSITORY: RADIATION DOSE DELIVERED:
== END 2022-12-09 03:07 ==
LOC: DI 02:47
PROVIDERS: PCP Nurse Practitioner Family; Visit Provider Internal Medicine Cardiovascular Disease
DX: R07.81 Pleurodynia (principal)
CPT/HCPCS: 71046

== ENCOUNTER 2023-01-17 09:39 | Emergency (ER) | payer MEDICARE, SELFPAY ==
[2023-01-17 09:52] VITALS: BP 121/68; PULSE 79; RESP 18; TEMP 37; O2SAT 98
--- NOTE | 2023-01-17 10:46 | DI.CT_ITS ---
Exam(s) CT BRAIN NECK CTA EXAM: CT BRAIN NECK CTA CLINICAL HISTORY: Left eye flashes, right side Headache. TECHNIQUE: Imaging Protocol: Axial CT angiography was performed with multi-slice acquisition and mu lti-planar and/or 3D reconstructions. CONTRAST MATERIAL: Intravenous: Omnipaque 350 contrast volume:85 mL COMPARISON: CT HEAD WITHOUT CONTRAST from 08/05/[address] HEAD CERV SPINE FACIAL WO from 08/19/2022 FINDINGS: CT Head W/O and W: Ventricles and Extra axial spaces: Normal in size and morphology for the patient's age. Hemorrhage: None. Cerebral parenchyma: No acute territorial infarct. Mild small vessel ischemic disease. Midline shift: None. Brainstem/Cerebellum: Normal. Calvarium: Normal. Visualized Paranasal sinuses/Mastoids: Mild mucosal thickening in the maxillary sinuses otherwise the visualized paranasal sinuses and mastoid air cells are clear. Soft Tissues: Unremarkable. Enhancement: Unremarkable. CTA Neck W: Common Carotid: Right: No dissection, occlusion or significant stenosis. Left: No dissection, occlusion or significant stenosis. External Carotid: Right: No occlusion or significant stenosis. Left: No occlusion or significant stenosis. Internal Carotid: Mild ectasia of the internal carotid arteries bilaterally. Right: No dissection, occlusion or significant stenosis. Left: No dissection, occlusion or significant stenosis. Vertebral Artery: There is a dominant right vertebral artery. Right: No dissection, occlusion or significant stenosis. Left: No dissection, occlusion or significant stenosis. Lung Apices: Normal. Bones: Within normal limits for the patient's age. Soft Tissues: Normal. CTA Brain W: Internal Carotid Arteries: Normal. Anterior Cerebral Arteries: Right: No aneurysm, occlusion or significant stenosis. Left: No aneurysm, occlusion or significant stenosis. Middle Cerebral Arteries: Right: No aneurysm, occlusion or significant stenosis. Left: No aneurysm, occlusion or significant stenosis. Posterior Cerebral Arteries: Right: No aneurysm, occlusion or significant stenosis. Left: No aneurysm, occlusion or significant stenosis. Vertebral Arteries: Right: No aneurysm, occlusion or significant stenosis. Left: No aneurysm, occlusion or significant stenosis. Basilar Artery: No aneurysm, occlusion or significant stenosis. IMPRESSION: 1. No large vessel occlusion or significant stenosis on the CT angiography of the head. 2. No acute intracranial process. 3. No occlusion or significant stenosis on the CT angiography of the neck. RADIATION DOSE DELIVERED: 1,777.49mGy.cm Total DLP DATA REPOSITORY: All CT scans at this facility are submitted to the National Radiology Data Registry (NRDR) Dose Index Registry (DIR) with the [employer] ([employer]). RADIATION OPTIMIZATION: All CT scans at this facility use at least one of these dose optimization te chniques: automated exposure control; mA and/or kV adjustment per patient size (includes targeted exa ms where dose is matched to clinical indication); or iterative reconstruction.
--- NOTE | 2023-01-17 10:46 | W.ED.GENAD ---
Discharge Plan Disposition Patient Disposition: Home Condition: Stable Discharge Details Clinical Impression: Subjective visual disturbance, left eye, Headache Primary Care Provider: Nicolle Price ED Provider: Maria Elena Jack Home Meds and New Rx's Prescriptions: Continued multivitamin [Daily Multi-Vitamin] 1 EACH tablet 1 tab PO DAILY metoprolol succinate 50 mg tablet extended release 24 hr 50 mg PO DAILY Patient Comments: TK 1 T PO QD atorvastatin 40 mg tablet 20 mg PO HS Patient Comments: TK 1 T PO HS Discharge Instructions Instructions: Blurred Vision (ED), General Headache (ED) Additional Instructions: CT of your head and neck shows some slightly large carotid arteries which are the arteries at the sides of your neck. The left is slightly bigger than the right. I do not think this has anything to do with the flashing in your eye however please follow-up with your primary care provider to discuss these results. Please keep your eye appointment as previously scheduled with [facility]. Follow up with primary care provider in 3-5 days. Return to ED sooner if any worsening headache, nausea vomiting, weakness dizziness on one side of your body or the other, confusion or concerns. Increase oral fluids. Referrals: Nicolle Price [Primary Care Provider] - 3 days Discharge Data Discharge Date/Time-TO BE ENTERED AT DEPARTURE: 01/17/23 13:17 Medical Decision Making 77-year-old female presents to the ER with chief complaint of flashes to her left eye which began around 9 AM this morning. It self resolved and then she began with a right-sided headache. No focal neurodeficits noted. She is scheduled for cataract surgery beginning of January. Denies any weakness numbness tingling in her arms or legs. She reports feeling tired and fuzzy. She did have a work-up approximately 9 years ago for similar type complaints and was diagnosed with atypical migraines. Other past medical history includes high cholesterol coronary artery disease, hyperlipidemia, nonsustained ventricular tachycardia, osteoarthritis. She is status post cardiac cath and vein stripping. Denies any other associated symptoms or concerns. Pupils PERRLA, work-up ordered including IV, CBC CMP [address] brain with contrast ordered. Differential diagnosis includes but not limited to CVA, which is unlikely due to no focal neurodeficits no vomiting no altered level of consciousness glaucoma, however patient does not have any vision loss or eye pain, retinal artery occlusion, cataracts, Left eye pressure measured, 16.8 which is within normal limits, Cooper lamp exam performed no uptake in dye no foreign body. 1248: Fluids are being hung by staff psychologist now, at this time I do feel that patient symptoms is related to her cataracts. I will have her follow-up with her PCP regarding CT results and should be family eye care as previously scheduled. Labs are noted below. 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 Patient verbalized understanding. This text was generated using Procurifyation system, please disregard any oddities of phrase or misspellings. Medical Records Medical records reviewed: Yes I reviewed the patient's medical records. Imaging Data Radiologic Study: Imaging: CT Scan Radiologist's impression: V rad radiology impression: Imaging protocol: Computed tomographic angiography of the head with contrast. Exam focused on the arteries. IMPRESSION: 1. No large vessel occlusion. No high-grade stenosis in the arteries of the [id number]. 2. 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 Imaging protocol: Computed tomographic angiography of the neck with contrast IMPRESSION: 1. No stenosis or occlusion. 2. Ectatic internal carotid arteries bilaterally near the base of the skull, left greater than right. 3. Dominant right vertebral artery. Dictated and Authenticated by: Raad Jerry DO 01/17/2023 12:29 PM Eastern Time ([place] & [place]) Lab Data Lab results reviewed: Yes I reviewed the patient's lab results. Labs: Laboratory Tests Range/Units 01/17/23 01/17/23 10:53 10:53 WBC (4.4-10.8) 10^3/uL 4.30 L RBC (3.93-5.22) 10^6/uL 4.50 Hgb (11.2-15.7) g/dL 14.7 Hct (36.0-46.0) % 44.1 MCV (80-95) fL 98 H MCH (27.0-33.0) pg 32.7 MCHC (32.0-36.0) % 33.3 RDW (11.7-14.6) % 11.9 Plt Count (130-400) 10^3/uL 234 MPV (8.0-11.0) fL 8.6 Immature Gran % 0.5 Neutrophils % 65.2 Lymphocytes % 26.7 Monocytes % 5.1 Eosinophils % 1.6 Basophils % 0.9 Nucleated RBC % (0.0-0.3) % 0.0 Absolute Neutrophils (1.2-6.7) 10^3/uL 2.80 Absolute Lymphocytes (1.2-3.4) 10^3/uL 1.15 L Absolute Monocytes (0.1-0.8) 10^3/uL 0.22 Absolute Eosinophils (0.0-0.7) 10^3/uL 0.07 Absolute Basophils (0.0-0.2) 10^3/uL 0.04 Sodium (136-145) mmol/L 144 Potassium (3.5-5.1) mmol/L 3.9 Chloride (98-107) mmol/L 104 Carbon Dioxide (21.0-32.0) mmol/L 32.3 H Anion Gap (3-11) mmol/L 7.7 BUN (7-18) mg/dL 16 Creatinine (0.55-1.02) mg/dL 0.9 Est GFR (CKD-EPI 2020) (mL/min/1.73m2) 65.44 Glucose (74-106) mg/dL 99 Calcium (8.5-10.1) mg/dL 9.0 Total Bilirubin (0.2-1.0) mg/dL 0.3 AST (15-37) U/L 27 ALT (14-59) U/L 28 Alkaline Phosphatase (46-116) U/L 81 Total Protein (6.4-8.2) g/dL 7.5 Albumin (3.4-5.0) g/dL 3.9 HPI General Mode of arrival: ambulatory. Date/Time Provider Initiated Documentation: 01/17/23 09:40. Limitations to Documentation: no limitations. Information obtained by: patient, RN notes reviewed and old records reviewed. HPI Narrative: 77-year-old female presents to the ER with chief complaint of flashes to her left eye which began around 9 AM this morning. It self resolved and then she began with a right-sided headache. No focal neurodeficits noted. She is scheduled for cataract surgery beginning of January. Denies any weakness numbness tingling in her arms or legs. She reports feeling tired and fuzzy. She did have a work-up approximately 9 years ago for similar type complaints and was diagnosed with atypical migraines. Other past medical history includes high cholesterol coronary artery disease, hyperlipidemia, nonsustained ventricular tachycardia, osteoarthritis. She is status post cardiac cath and vein stripping. Denies any other associated symptoms or concerns. Related Data Home Medications Medication Instructions Recorded Confirmed multivitamin (Daily Multi-Vitamin 1 tab PO DAILY 05/20/15 01/17/23 tablet) atorvastatin 40 mg tablet 20 mg PO HS 03/30/20 01/17/23 metoprolol succinate 50 mg 50 mg PO DAILY 03/30/20 01/17/23 tablet,extended release 24 hr Allergies Allergy/AdvReac Type Severity Reaction Status Date / Time acetaminophen [From Kenn] AdvReac neuropathy Verified 08/19/22 16:45 chlorpheniramine AdvReac neuropathy Verified 08/19/22 16:45 [From Kenn] oxymetazoline HCl AdvReac neuropathy Verified 08/19/22 16:45 [From Kenn] pheniramine maleate AdvReac neuropathy Verified 08/19/22 16:45 [From Kenn] phenylephrine HCl AdvReac neuropathy Verified 08/19/22 16:45 [From Kenn] pseudoephedrine HCl AdvReac neuropathy Verified 08/19/22 16:45 [From Kenn] General Stated Complaint: EyeProblem EZEQUIEL: 3 Review of Systems All systems reviewed & are unremarkable except as noted in HPI and below Eyes Eyes: Reports as per HPI and Reports seeing flashes PFSH All Active Problems (Updated 01/17/23 @ 12:54 by Maria Elena Jack NP) Subjective visual disturbance, left eye (Acute) Headache (Acute) Bilateral primary osteoarthritis of hip (Acute) Endometrial thickening on ultrasound (Acute) Persistent, 8.7 mm stripe on ultrasound 01/16. Previous endometrial sampling, inactive endometrium. Would consider hysteroscopy with dilation and curettage for further evaluation. Left ovarian cyst (Acute) Persistent, septated Abdominal pain (Acute) Lumbago (Acute) Hyperlipidemia (Chronic) CAD (coronary artery disease) (Chronic) Discharge planning issues (Acute) DVT prophylaxis (Acute) Dyslipidemia (Acute) Chest pain (Acute) Medical History Obesity Osteoarthritis Surgical History Colonoscopy - MAC (05/26/17) Hx of vein stripping S/P cardiac cath Social History Smoking/Tobacco Use Status: Never Smoking risk assessment performed?: Yes Alcohol Intake: current Alcohol Intake frequency: holidays/special occasions only Alcohol type: wine Drug use: Never Substance use type: does not use Housing: house Do you feel safe at home: Yes Do you feel safe in your relationship?: Yes Female Reproductive History Menstrual Menopause type: natural History History 2 Para 2 Hx # Term Pregnancies 2 Multiple births Hx # Pregnancies Ectopic pregnancies AB induced Hx Number of Living Children 2 AB spontaneous Exam Narrative Exam Narrative: Constitutional: Alert and oriented x3. Appears stated age. Normal body habitus. Head: Normocephalic, no trauma. Eyes: Pupils PERRL, Red reflex noted, EOM's intact. Eyelids symmetrical without lesions, discharge, or swelling. Optic pressure with tonometer measured which was 16.8, within normal limits. No conjunctival injection, no conjunctival icterus. ENT: Bilateral TM's WNL, External ear normal to inspection, no mastoid TTP, swelling, or erythema, Nasal turbinates WNL, no nasal discharge. Normal dentition, Posterior pharynx WNL, no exudate. Chest: RRR, Normal S1, S2, distal pulses intact. Resp: Lungs clear to auscultation bilaterally, no wheezes, rales, or rhonchi. Abdomen: Soft, non-distended, Normoactive bowel sounds all 4 quads. Musculoskeletal: Normal gait, 5/5 strength to all four extremities. Skin: No suspicious rashes or lesions. Capillary refill less than 2 sec. Neurologic: Cranial nerves II-XII intact. Alert and oriented x 3. Motor: No deficits noted. Sensory: Intact bilaterally all 4 extremities. Reflexes: DTR's intact bilaterally.. Hematologic/Lymphatic: No ecchymosis, no lymphadenopathy. Course Vital Signs Vital signs: Vital Signs Temperature 37 C 01/17/23 09:52 Pulse 79 01/17/23 09:52 Respiratory Rate 18 01/17/23 09:52 Blood Pressure 121/68 01/17/23 09:52 Pulse Oximetry 98 01/17/23 09:52 Temperature 37 C 01/17/23 09:52 Temperature Source Oral 01/17/23 09:52 Pulse 79 01/17/23 09:52 Respiratory Rate 18 01/17/23 09:52 Respiratory Effort Normal, Non-Labored 01/17/23 09:56 Blood Pressure 121/68 01/17/23 09:52 Blood Pressure Position Sitting 01/17/23 09:52 Pulse Oximetry 98 01/17/23 09:52 Pain Level 0 01/17/23 09:52
[2023-01-17 10:59] LABS: Abs Immature Grans 0.02 10^3/uL (0.0-0.06); Absolute Basophil Count 0.04 10^3/uL (0.0-0.2); Absolute Eosinophil Count 0.07 10^3/uL (0.0-0.7); Absolute Lymphocyte Count 1.15 10^3/uL (1.2-3.4); Absolute Monocyte Count 0.22 10^3/uL (0.1-0.8); Basophils % 0.9; Eosinophils % 1.6; HCT 44.1 % (36.0-46.0); HGB 14.7 g/dL (11.2-15.7); Immature Grans % 0.5; Lymphocytes % 26.7; MCH 32.7 pg (27.0-33.0); MCHC 33.3 % (32.0-36.0); MCV 98 fL (80-95); MPV 8.6 fL (8.0-11.0); Monocytes % 5.1; Neutrophils % 65.2; Platelet Count 234 10^3/uL (130-400); RDW 11.9 % (11.7-14.6); RDW-SD 42.9 fL
[2023-01-17 11:14] LABS: ALT 28 U/L (14-59); AST 27 U/L (15-37); Albumin 3.9 g/dL (3.4-5.0); Alkaline Phosphatase 81 U/L (46-116); Anion Gap 7.7 mmol/L (3-11); BUN 16 mg/dL (7-18); Bilirubin, Total 0.3 mg/dL (0.2-1.0); CO2 32.3 mmol/L (21.0-32.0); CREATININE 0.9 mg/dL (0.55-1.02); Chloride 104 mmol/L (98-107); Estimated GFR 65.44 (mL/min/1.73m2); Glucose 99 mg/dL (74-106); Potassium 3.9 mmol/L (3.5-5.1); Sodium 144 mmol/L (136-145); Total Protein 7.5 g/dL (6.4-8.2)
[2023-01-17] MEDS: Normal Saline - Diluent 50 ML VIAL IJ (11:53)
[2023-01-17] MEDS: Normal Saline Flush 10 ML SYR IVP (11:53)
[2023-01-17] MEDS: Omnipaque 350 MG/ML 100 ML BTL IJ (11:53)
--- NOTE | 2023-01-17 12:30 | DI.VRAD_ITS ---
PROCEDURE INFORMATION: Exam: CTA Head With Contrast, Arteriography Exam date and time: 01/17/2023 11:40 AM Age: 77 years old Clinical indication: Other: Left eye flashes, right side headache TECHNIQUE: Imaging protocol: Computed tomographic angiography of the head with contrast. Exam focused on the arteries. 3D rendering (Not supervised by radiologist): MIP and/or 3D reconstructed images were created by the technologist. Contrast material: OMNIPAQUE 350; Contrast volume: 85 ml; Contrast route: INTRAVENOUS (IV); COMPARISON: CT HEAD CERV SPINE FACIAL WO 08/19/2022 3:48 PM FINDINGS: ANTERIOR CIRCULATION: Right internal carotid artery: Intracranial segment is patent with no significant stenosis. No aneurysm. Right middle cerebral artery: No occlusion or significant stenosis. No aneurysm. Right anterior cerebral artery: No occlusion or significant stenosis. No aneurysm. Left internal carotid artery: Intracranial segment is patent with no significant stenosis. No aneurysm. Left middle cerebral artery: No occlusion or significant stenosis. No aneurysm. Left anterior cerebral artery: No occlusion or significant stenosis. No aneurysm. POSTERIOR CIRCULATION: Right vertebral artery: No occlusion or significant stenosis. No aneurysm. Left vertebral artery: No occlusion or significant stenosis. No aneurysm. Basilar artery: No occlusion or significant stenosis. No aneurysm. Right posterior cerebral artery: No occlusion or significant stenosis. No aneurysm. Left posterior cerebral artery: No occlusion or significant stenosis. No aneurysm. Brain: Sylvester-white matter differentiation is within normal limits. No mass effect or midline shift. There are mild nonspecific patchy foci of periventricular white matter hypodensity, probably due to chronic microvascular ischemic changes. Sulci and basilar cisterns are prominent due to mild parenchymal volume loss. No extra-axial fluid collection. Cerebral ventricles: No ventriculomegaly. Paranasal sinuses: Mild mucosal thickening in the bilateral maxillary sinuses. Bones/joints: Unremarkable. No acute fracture. Soft tissues: Unremarkable. IMPRESSION: 1. No large vessel occlusion. No high-grade stenosis in the arteries of the [id number]. 2. 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 PROCEDURE INFORMATION: Exam: CTA Neck With Contrast Exam date and time: 01/17/2023 11:40 AM Age: 77 years old Clinical indication: Other: Left eye flashes, right side headache TECHNIQUE: Imaging protocol: Computed tomographic angiography of the neck with contrast. 3D rendering (Not supervised by radiologist): MIP and/or 3D reconstructed images were created by the technologist. Contrast material: OMNIPAQUE 350; Contrast volume: 85 ml; Contrast route: INTRAVENOUS (IV); COMPARISON: CT HEAD CERV SPINE FACIAL WO 08/19/2022 3:48 PM FINDINGS: Right common carotid artery: No stenosis. No dissection or occlusion. Right internal carotid artery: No stenosis of the extracranial segment. No dissection or occlusion. Mild ectasia of the right internal carotid artery near the base of the skull measuring up to 5 mm. Right external carotid artery: No occlusion or stenosis of the origin. Left common carotid artery: No stenosis. No dissection or occlusion. Left internal carotid artery: No stenosis of the extracranial segment. No dissection or occlusion. There is fusiform dilatation and tortuosity of the internal carotid artery near the base of the skull measuring up to 7 mm in the maximum diameter compared to the proximal diameter measuring up to 4 mm and distal diameter in the petrous segment measuring up to 5 mm. Left external carotid artery: No occlusion or stenosis of the origin. Right vertebral artery: No stenosis. No dissection or occlusion. Right vertebral artery is dominant. Left vertebral artery: No stenosis. No dissection or occlusion. Soft tissues: Normal. No significant soft tissue swelling. Bones/joints: No acute fracture. IMPRESSION: 1. No stenosis or occlusion. 2. Ectatic internal carotid arteries bilaterally near the base of the skull, left greater than right. 3. Dominant right vertebral artery. REFERENCES: NASCET CRITERIA. The degree of stenosis in the cervical segment of the internal carotid artery is based on NASCET criteria. Normal is no stenosis. Mild is less than 50% stenosis. Moderate is 50-69% stenosis. Severe is 70% to 99% stenosis. Total occlusion is no detectable patent lumen. Dictated and Authenticated by: Raad Jerry MD. Ordering:MERYL Arredondo MD
[2023-01-17] MEDS: Normal Saline 500 ML IV (12:45)
[2023-01-17] MEDS: Ibuprofen 600 MG TAB PO (13:07)
[2023-01-17 13:14] VITALS: BP 143/72; PULSE 67; RESP 18; O2SAT 95
== END 2023-01-17 13:17 | disposition home or self-care (01) ==
PROVIDERS: Emergency Provider Registered Nurse Emergency; PCP Nurse Practitioner Family
DX: H53.9 Unspecified visual disturbance (principal); I25.10 Atherosclerotic heart disease of native coronary artery without angina pectoris; E78.5 Hyperlipidemia, unspecified
CPT/HCPCS: 70496; 70498; 80053; 85025; J3490

== ENCOUNTER 2023-02-25 02:06 | Outpatient (CLI) | payer MEDICARE, SELFPAY ==
[2023-02-25 12:20] LABS: HCT 39.9 % (36.0-46.0); HGB 13.5 g/dL (11.2-15.7); MCH 32.3 pg (27.0-33.0); MCHC 33.8 % (32.0-36.0); MCV 96 fL (80-95); MPV 8.5 fL (8.0-11.0); Platelet Count 227 10^3/uL (130-400); RBC 4.18 10^6/uL (3.93-5.22); RDW 11.7 % (11.7-14.6); RDW-SD 40.7 fL; WBC 4.89 10^3/uL (4.4-10.8)
[2023-02-25 13:00] LABS: Anion Gap 6.4 mmol/L (3-11); BUN 19 mg/dL (7-18); CO2 31.6 mmol/L (21.0-32.0); CREATININE 0.9 mg/dL (0.55-1.02); Chloride 102 mmol/L (98-107); Estimated GFR 65.44 (mL/min/1.73m2); Glucose 99 mg/dL (74-106); Potassium 4.3 mmol/L (3.5-5.1); Sodium 140 mmol/L (136-145)
== END 2023-02-25 02:07 | disposition home or self-care (01) ==
LOC: LBO 02:06
PROVIDERS: PCP Nurse Practitioner Family; Visit Provider Student in an Organized Health Care Education/Training Program
DX: M25.551 Pain in right hip (principal); M25.552 Pain in left hip; M16.0 Bilateral primary osteoarthritis of hip; Z01.818 Encounter for other preprocedural examination; Z01.812 Encounter for preprocedural laboratory examination
CPT/HCPCS: 36415; 80048; 85027; 86850; 86900; 86901

== ENCOUNTER 2023-02-25 13:19 | Outpatient (CLI) | payer MEDICARE, SELFPAY ==
--- NOTE | 2023-02-25 10:00 | DI.RAD_ITS ---
Exam(s) XR PELVIS AP EXAM: XR PELVIS AP CLINICAL HISTORY: bilateral hip DJD. TECHNIQUE: 2D digital imaging was performed. One view is obtained. COMPARISON: CR XR HIP LT COMPLETE AP PELVIS from 02/26/2022 FINDINGS: BONES: No acute fracture is present. No bony destructive lesion is seen. JOINTS: No dislocation present. There are advanced degenerative changes of the hips bilaterally chely cterized by joint space narrowing and osteophytes. SOFT TISSUE: Normal. IMPRESSION: Marked degenerative changes of the hips bilaterally. DATA REPOSITORY: RADIATION DOSE DELIVERED:
== END 2023-02-25 13:20 | disposition home or self-care (01) ==
LOC: DIORS 13:20
PROVIDERS: PCP Nurse Practitioner Family; Visit Provider Physician Assistant
DX: M16.11 Unilateral primary osteoarthritis, right hip (principal); M16.12 Unilateral primary osteoarthritis, left hip; Z01.818 Encounter for other preprocedural examination
CPT/HCPCS: 72170

== ENCOUNTER 2023-03-02 06:04 | Day surgery (SDC) | payer MEDICARE, SELFPAY ==
[2023-03-02] VITALS (13 sets, daily range): BP systolic 82–150; BP diastolic 45–95; PULSE 54–79; RESP 12–18; TEMP 36.1–36.6; O2SAT 94–99; BMI 27.6
[2023-03-02] MEDS: Acetaminophen 500 MG TAB 1000 MG PO ×2 (06:43→14:54)
[2023-03-02] MEDS: Celecoxib 200 MG CAP 400 MG PO (06:43)
--- NOTE | 2023-03-02 06:48 | ANES.PREOP_ITS ---
General Info Date of Service Date Performed: 03/02/23 Height: 5 ft 4 in Weight: 73.1 kg Body Mass Index (BMI): 27.6 Surgical Procedure: Operation Date: 03/02/23 08:00 Proposed Procedure Side Surgeon p Hip Total Hip Anterior Bilateral Bilateral Zaki Mcdonough MD Meds Allergies and Home Medications Allergies Allergy/AdvReac Type Severity Reaction Status Date / Time acetaminophen [From Kenn] AdvReac neuropathy Verified 03/02/23 06:12 chlorpheniramine AdvReac neuropathy Verified 03/02/23 06:12 [From Kenn] oxymetazoline HCl AdvReac neuropathy Verified 03/02/23 06:12 [From Kenn] pheniramine maleate AdvReac neuropathy Verified 03/02/23 06:12 [From Kenn] phenylephrine HCl AdvReac neuropathy Verified 03/02/23 06:12 [From Kenn] pseudoephedrine HCl AdvReac neuropathy Verified 03/02/23 06:12 [From Kenn] Home Medication Medication Instructions Recorded multivitamin (Daily Multi-Vitamin 1 tab PO DAILY 05/20/15 tablet) atorvastatin 40 mg tablet 20 mg PO HS 03/30/20 metoprolol succinate 50 mg 50 mg PO DAILY 03/30/20 tablet,extended release 24 hr acetaminophen 500 mg tablet 1,000 mg PO Q8H PRN pain #90 tabs 03/02/23 aspirin 81 mg tablet,delayed 81 mg PO BID 30 days #60 tabs 03/02/23 release celecoxib 200 mg capsule (Celebrex) 200 mg PO BID PRN #60 caps 03/02/23 dexamethasone 4 mg tablet 4 mg PO DAILY #2 tabs 03/02/23 docusate sodium 100 mg capsule 100 mg PO BID #30 caps 03/02/23 (Colace) oxycodone 5 mg tablet 5 mg PO Q6H PRN #12 tabs 03/02/23 pantoprazole 40 mg tablet,delayed 40 mg PO DAILY #14 tabs 03/02/23 release Current Visit Medications: Current Medications Generic Name Dose Route Start Last Admin Trade Name Freq PRN Reason Stop Dose Admin Acetaminophen 1,000 mg 03/02/23 06:00 03/02/23 06:43 Acetaminophen 500 Mg Tab PO 04/01/23 05:59 1,000 mg PREOP PARAS Administration Celecoxib 400 mg 03/02/23 06:00 03/02/23 06:43 Celecoxib 200 Mg Cap PO 04/01/23 05:59 400 mg PREOP PARAS Administration Tranexamic Acid 1,000 mg/ 60 mls @ 360 mls/hr 03/02/23 06:00 Sodium Chloride IV 03/03/23 18:00 PREOP PARAS Tranexamic Acid 1,000 mg/ 60 mls @ 360 mls/hr 03/02/23 06:00 Sodium Chloride IV 03/02/23 18:00 DIRECTED PARAS Ringer's Solution 1,000 mls @ 80 mls/hr 03/02/23 06:00 IV 03/02/23 23:59 INFUSION PARAS Cefazolin Sodium/Dextrose 2 gm in 50 mls @ 100 mls/hr 03/02/23 06:00 Ancef Duplex IVPB 03/02/23 23:59 PREOP PARAS IV Miscellaneous Supplies 1 each 03/02/23 06:00 Iv Access IV 03/02/23 23:59 DIRECTED PARAS Sodium Chloride 0 ml 03/02/23 06:00 Normal Saline Flush 10 Ml Syr IV 03/02/23 23:59 PRN PRN Sodium Chloride 0 ml 03/02/23 06:00 Normal Saline 10 Ml Vial IJ 03/02/23 23:59 DIRECTED PRN Sterile Water 0 ml 03/02/23 06:00 Water,Injection,Sterile 10 Ml Vial IJ 03/02/23 23:59 DIRECTED PRN PFSH Active Problems Active Problems: Problem Status Onset Code Bilateral primary osteoarthritis of hip M16.0 Endometrial thickening on ultrasound R93.89 Left ovarian cyst N83.202 Lumbago M54.50 Hyperlipidemia Nonsustained ventricular tachycardia I47.2 CAD (coronary artery disease) I25.10 Discharge planning issues Z02.9 DVT prophylaxis Z29.9 Dyslipidemia E78.5 Chest pain R07.9 Medical History Medical History Fracture of right tibia and fibula (~1984) treated conservatively Obesity Osteoarthritis Surgical History Surgical History Adhesive capsulitis of right shoulder (~1988) JERONIMO Colonoscopy - MAC (05/26/17) Hx of vein stripping Bilateral legs [facility] [place] continues to wear compression stockings S/P cardiac cath (2019) Tobacco Smoking/Tobacco Use Status: Never Alcohol Alcohol Intake: current Alcohol intake frequency: holidays/special occasions only Alcohol type: wine Substance Use Substance use: Never Substance use type: does not use Prental History History 2 Para 2 Hx # Term Pregnancies 2 Multiple births Hx # Pregnancies Ectopic pregnancies AB induced Hx Number of Living Children 2 AB spontaneous Vital Signs and Lab Results Lab Results Blood Type / Crossmatch: Patient ABO/Rh A Negative 02/25/23 Antibody Screen NEGATIVE 02/25/23 Complete Blood Count: White Blood Count 4.89 10^3/uL (4.4-10.8) 02/25/23 12:11 Red Blood Count 4.18 10^6/uL (3.93-5.22) 02/25/23 12:11 Hemoglobin 13.5 g/dL (11.2-15.7) 02/25/23 12:11 Hematocrit 39.9 % (36.0-46.0) 02/25/23 12:11 Platelet Count 227 10^3/uL (130-400) 02/25/23 12:11 Complete Metabolic Panel: Sodium 140 mmol/L (136-145) 02/25/23 12:11 Potassium 4.3 mmol/L (3.5-5.1) 02/25/23 12:11 Chloride 102 mmol/L (98-107) 02/25/23 12:11 Carbon Dioxide 31.6 mmol/L (21.0-32.0) 02/25/23 12:11 BUN 19 mg/dL (7-18) H 02/25/23 12:11 Creatinine 0.9 mg/dL (0.55-1.02) 02/25/23 12:11 Est GFR (CKD-EPI 2020) 65.44 (mL/min/1.73m2) 02/25/23 12:11 Calcium 10.0 mg/dL (8.5-10.1) 02/25/23 12:11 Glucose 99 mg/dL (74-106) 02/25/23 12:11 Liver Function Panel: No Data to Display Coagulation Panel: No Data to Display Cardiac Panel: No Data to Display Arterial Blood Gas: No Data to Display Venous Blood Gas: No Data to Display Pancreas Panel: No Data to Display Thyroid Panel: No Data to Display Infectious Disease: No Data to Display Blood Cultures: No Data to Display Toxicology Panel: No Data to Display Imaging and Studies Imaging and Studies Study information below may be from another EMR and interpreted by another provider. Please see original notes in EMR for more complete details. EKG Summary: EKG PATIENT NAME: Donal Cruz #: [id number] ORDERING PROVIDER: Renzo Stephens M.D. PRIMARY CARE PROVIDER:CLINTON CORLEY MD DATE/TIME OF SERVICE: 06/17/22 : 1945PERFORMING LOCATION: ER APPROVED REPORT Exam: Resting ECG Reason for Exam: chest pain Patient Location: E HR:67 bpm ECG Measurements Heart Rate 67 AXIS MS 172 P 2 QRSd 85 QRS 0 QT 391 T7 QTc 412 Conclusion Sinus rhythm...normal P axis, V-rate 60- 99 <Electronically signed by RENZO STEPHENS MD in OV> E-Sign Date: 06/17/22 E-Sign Time: 2345 ADDENDUM APPROVED REPORT Exam: Resting ECG Reason for Exam: chest pain Patient Location: E HR:67 bpm ECG Measurements Heart Rate 67 AXIS MS 172 P 2 QRSd 85 QRS 0 QT 391 T7 QTc 412 Conclusion Sinus rhythm...normal P axis, V-rate 60- 99 I have reviewed and I agree with the emergency room physician's ECG interpretation. Electronically signed by: <Electronically signed by lEana Roblero M.D. in OV> 06/18/2221 Cosigned by: Stress Test Summary: STRESS TEST PATIENT NAME: Camilo CRUZ #: [id number] ADMITTING PROVIDER: RUFUS MOHAMUDJEANNINEACCOUNT #: [id number] PRIMARY CARE PROVIDER:Clinton Corley M.D.DATE OF SERVICE: 04/29/20 : 1945 APPROVED REPORT Exam: Exercise Treadmill Patient Location: Out-Patient Room/Bed: Stress Nurse: Samantha Herrrea RN BMI: 27.46 Baseline Rhythm: Sinus Rhythm Indications: Atypical chest discomfort. Medical History Medical History: CAD, NSVT, HLD, OA Cardiac Medications: ASA, Atorvastatin, Metoprolol Succinate. , Allergies: Dristan. Cardiac Risk Factors: FHX of CAD, PVD, Hyperlipidemia Previous Cardiac Procedures: PCI, no stenting, minimal cardiac disease. Pretest Chest Pain Characteristics: No chest pain Exercise History: Indeterminate Physical Disabilities: None. Lung Sounds: Clear to auscultation Heart Sounds: Regular Stress Test Details Test: Exercise stress testing was performed using a Michael protocol. Rest Stress HR Resting HR Supine: 80 bpmMax Heart Rate (APMHR): 145 bpm Resting HR Standin bpmTarget HR (85% APMHR): 123 bpm Max HR Achieved: 167 bpm % of APMHR: 115 Recovery HR: 98 bpm HR response to stress: Normal HR response to stress BP Resting BP Supine: 148/76 mmHg Resting BP Standin/74 mmHg Max BP: 170/60 mmHg Recovery BP: 142/74 mmHg BP response to stress: Normal blood pressure response to stress. ECG Resting ECG: Sinus Rhythm Ectopy: rare PVC. Stress ECG: Sinus Tachycardia ST Change: no significant ST segment changes noted. Arrhythmia: PVCs, trigeminy. Recovery ECG: Sinus Rhythm Recovery ST Change: no significant ST segment changes Recovery Arrhythmia: PACs, PVCs. Clinical Reason for Termination: Fatigue Stress Symptoms: None. Exercise duration: 9 min11 sec Highest Stage Reached: Stage 4: 4.2 mph at 16% grade. Exercise capacity: 10.46 METs Stress ECG Conclusion 1. Patient exercised for 9 minutes (10 METS) the patient no symptoms suggestive of ischemia. 2. The patient achieved over 85% of maximal predicted heart rate. Blood pressure response was normal. 3. There is no evidence of ischemia on the EKG portion of the exam. 4. The Phelps Score ( 8) estimates an annual cardiovascular mortality of 0% and a five year survival of 95%. Using the Phelps Score there is a low probability of any angiographic coronary disease. Stress Test Summary STAGETime (mins)Speed (mph)Grade (%)[id number] [id number]/76 Dxocumuj45245/74 [id number]/724.6 [id number]/647 393.33205108.2 1 min [id number]/60 3 min twprrxqg07375/66 6 min cffpvskv762790/74 Echocardiogram Summary: Patient Name: Camilo CRUZ #: [id number]: ICU Ordering Provider: Juanita Ferro M.D. : ADM BRODY Primary Care Provider: Clinton Corley M.D.Date of Exam: 04/05/19Sex: F Admission Date: 04/04/19 : 1945 Age: 73 Exam(s) a US:US echocardiogram APPROVED REPORT EXAM: Comprehensive 2D, Doppler, and color-flow Echocardiogram Patient Location: In-Patient Automobile Brakes Bonder: TINO Faith (AE) Indications: chest pain ? WMA Left Ventricle The left ventricle is normal size. The left ventricular systolic function is normal. The left ventricular ejection fraction is within the normal range. There is normal left ventricular wall thickness. Regional wall motion abnormalities are noted: Hypokinesis of the entire anteroseptal and inferoseptal region. All other segments are within normal limits There is grade 1 diastolic dysfunction LVEF is 55-60%. Right Ventricle The right ventricle is normal size. The right ventricular systolic function is normal. Atria The left atrium size is normal. The right atrium size is normal. Aortic Valve The aortic valve is normal in structure. There is no aortic valvular stenosis. Mild aortic regurgitation. Mitral Valve The mitral valve is normal in structure. No evidence of mitral valve stenosis. There is no mitral valve regurgitation noted. Tricuspid Valve The tricuspid valve is normal in structure. Mild tricuspid regurgitation. TR V- max=3.1 m/s TR peak gradient=38.3 mmHg RVSP mildly elevated but likely normal for age. Great Vessels The aortic root is normal in size. The IVC is normal in size and collapses >50% with inspiration. Pericardium There is no pericardial effusion. 2D Dimensions IVSd 1.0 cm F: 0.6-1.0LA Volume Index A4C20.0 mL/m2 PWd 1.2 cm F: 0.6 - 1.0LA Area A4C14.0 cm2 LVDd 3.8 cm F: 3.9 - 5.3 LVDs 2.6 cm F: 2.2 - 3.5 Aortic Root 3.2 cm F: 2.7 - 3.3 LVOT1.8 cm (M/F) 1.5-2.5 Ascending Aorta 3.7 cm F: 2.3 - 3.1 LVEF (Patel's)58.8 % F: 54 - 74 FS30.1 % LV Diastology E Decel Pfqm699.0 (160-240 msec)E/A Ratio 0.5 MED E'0.0 (<0.07 m/s)LV E/e MED8.9 (>14) LAT E'0.1 (<0.1 m/s)LV E/e LAT6.4 (>14) Aortic Valve LVOT Peak Ajith.0.8 m/sLVOT Peak Gr.2.5 mmHg LVOT Mean Gr.1.6 mmHgLVOT VTI0.2 m PARAMJIT (VTI)2.3 (2.5-4.5 cm2)PARAMJIT (VTI) Index1.3 cm/m2 Mitral Valve MV A Velocity0.7 (0.4-1.3 m/s)E/A Ratio0.5 MV Decel. Ntpw315.5 (160-240 msec)MV PHT87.7 msec MVA PHT2.5 cm2 Pulmonary Valve MS End NBEP070.8 cm/s Tricuspid Valve TR P. Velocity3.1 m/sTR P. Etldkzzw56.3 mmHg Conclusion Left Ventricle : The left ventricle is normal size. There is normal left ventricular wall thickness. There is grade 1 diastolic dysfunction. LVEF is 55- 60%. Regional wall motion abnormalities are noted: Hypokinesis of the entire anteroseptal and inferoseptal regions. All other segments are within normal limits Right Ventricle : The right ventricle is normal size. The right ventricular systolic function is normal. Atria : The left atrium size is normal. The right atrium size is normal. Aortic Valve : The aortic valve is normal in structure. There is no aortic valvular stenosis. Mild aortic regurgitation. Mitral Valve : The mitral valve is normal in structure. There is no mitral valve regurgitation noted. No evidence of mitral valve stenosis. Tricuspid Valve : The tricuspid valve is normal in structure. Mild tricuspid regurgitation. TR V-max=3.1 m/s TR peak gradient=38.3 mmHg RVSP mildly elevated but likely normal for age. Great Vessels : The aortic root is normal in size. The IVC is normal in size and collapses >50% with inspiration. Pericardium : There is no pericardial effusion. Ordered By: Juanita Ferro M.D. CC: Dictated By: Jeannine Oviedo M.D. 04/05/19 1745 04/06/19 0938 Transcribed By: Jeannine Oviedo MD This is privileged, confidential information intended only for the provider named. Any use or distribution by any person other than this provider is strictly prohibited. If you receive this report in error, please notify us immediately at [phone] and return the original report to us at the address above. Thank-you. Carotid Artery Summary:: Patient Name: Camilo CRUZ #: [id number]: DI Ordering Provider: TERRY OLMSTEAD M.D. : [facility] Primary Care Provider: CLINTON CORLEY M.D.Date of Exam: 08/22/15ex: F : 5Age: 69 Exam(s) [id number] US:Carotid SYMPTOM/DIAGNOSIS: TRANSIENT VISUAL DISTURBANCE, RT, H53.121, HEADACHE, R 51,TIA, RT COREY CAROTID ULTRASOUND: No plaque is visible. There is no significant intimal thickening. The velocity measurements obtained are within the normal range bilaterally. The vertebral arteries show antegrade flow. IMPRESSION: Negative carotid ultrasound. No evidence of plaque or stenosis. Ordered By: TERRY OLMSTEAD M.D. CC: Dictated By: JILL MOSCOSO M.D. 08/22/15 0937 <Electronically signed by JILL MOSCOSO M.D.> 08/22/15 0955 Transcribed By: Susanne Marshall 08/22/1551 This is privileged, confidential information intended only for the provider named. Any use or distribution by any person other than this provider is strictly prohibited. If you receive this report in error, please notify us immediately at [phone] and return the original report to us at the address above. Thank-you. Anesthesia Assessment and Plan Anesthesia History Personal History: No History of Anesthesia Complications Family History: No Family History of Anesthesia Complications Exercise Tolerance Exercise Tolerance: Metabolic Equivalents>4 Pertinent Negatives Pertinent Negatives: No Symptoms of GERD, No Major Cardiovascular Symptoms or Complaints, No Major Pulmonary Symptoms or Complaints and No History of CVA/TIA Cardiac & Pulmonary Exam Cardiac Exam: Normal S1/S2 Heart Sounds Pulmonary Exam: Clear Bilateral Breath Sounds Cardiac and Pulmonary Comment:: No recent chest pain. Implantable Cardiac Device Does patient have a Pacemaker or an ICD?: No Airway Exam Known Difficult Airway: No Mallampati Class: 2 Mouth Opening: Normal (> 3cm) Thyromental Distance: Greater than 3 cm Neck Range of Motion: Full ROM Neck Circumference: Normal Teeth Condition: Normal Dentition ASA Classification ASA Score: ASA 2 Emergency Case?: No NPO Status NPO Status: NPO Clears >2 hours, Solids >8 hours Anesthesia Plan Resuscitation Status: Full Code Anesthesia Technique: Spinal Anesthesia Airway Planned: Natural Airway Monitors Used: Standard Monitors Preoperative Comments:: Reports GERD in the past but no recent symptoms.
[2023-03-02] MEDS: Lactated Ringers 1,000 ML 80 ML IV (07:00)
[2023-03-02] MEDS: ceFAZolin 2 GM/50 ML BAG IVPB (07:57)
--- NOTE | 2023-03-02 08:50 | DI.RAD_ITS ---
Exam(s) XR HIP RT IN OR EXAM: XR HIP RT IN OR CLINICAL HISTORY: Bilateral primary osteoarthritis of hip. TECHNIQUE: 2D digital imaging was performed. COMPARISON: No exams were available for comparison FINDINGS: Provided intraoperative fluoroscopy for right hip arthroplasty. See procedure report for details. Total fluoroscopy time 29 seconds IMPRESSION: Radiation exposure index/cumulative dose: azucena Poon= 2.9437mGy DATA REPOSITORY: RADIATION DOSE DELIVERED:
--- NOTE | 2023-03-02 10:00 | DI.RAD_ITS ---
Exam(s) XR HIP LT IN OR EXAM: XR HIP LT IN OR CLINICAL HISTORY: Bilateral primary osteoarthritis of hip. TECHNIQUE: 2D digital imaging was performed. COMPARISON: No exams were available for comparison FINDINGS: Fluoroscopy provided intraoperatively during left hip arthroplasty. Please see procedure report for details. Fluoroscopy time 29 seconds IMPRESSION: Radiation exposure index/cumulative dose: Ayahazucena= 2.6086mGy DATA REPOSITORY: RADIATION DOSE DELIVERED:
--- NOTE | 2023-03-02 10:11 | W.PM.OP ---
Date of service: 03/02/23 Time of Service: 10:12 Operative Note Operative Note DATE OF PROCEDURE: 03/02/23 PRE-OP DIAGNOSIS: Bilateral Hip Osteoarthritis POST-OP DIAGNOSIS: same PROCEDURE: Bilateral Anterior Total Hip Arthroplasty with Intraoperative Navigation SURGEON: Zaki Mcdonough DYE RANGE TENDER: Elicia Heredia ANESTHESIA TYPE: Spinal Refer to Anesthesia Record ESTIMATED BLOOD LOSS: 300 PATHOLOGY: none sent COMPLICATIONS: None Patient was transported to: PACU Patient's condition: stable Implants: RIGHT: 1. Depuy Spooner Acetabular Component, 50mm 2. Depuy Acetabular Liner, [id number] 3. Depuy Corail Short Neck 135 Femoral Stem, Size 10 4. Depuy Altrx Ceramic Femoral Head, Size 32+5mm LEFT: 1. Depuy Spooner Acetabular Component, 50mm 2. Depuy Acetabular Liner, [id number] 3. Depuy Corail Standard Collared Femoral Stem, Size 10 4. Depuy Altrx Ceramic Femoral Head, Size 32+5mm Indications: I have seen Leonie in clinic for symptoms of hip arthritis, confirmed with radiographic findings. She has exhausted nonoperative methods and was having significant limitations in daily function and desired better function and less pain. I discussed the technical details of a hip replacement. I explained the risks of the procedure to include, but not limited to, bleeding, infection, pain, stiffness, fracture, damage to nerves and vessels, damage to muscles and tendons, loosening, instability, leg length inequality, need for repeat procedure, blood clot and cardiopulmonary demise. Despite these risks, Leonie elected to proceed. Findings: There was significant signs of arthritis throughout both hips. Procedure Description: Leonie was greeted in the preoperative holding area where the correct side was identified and marked. The consent was reviewed with the patient and signed. The history and physical was updated. All questions were answered. She was taken back to the operating room. A spinal anesthestic was then administered. The patient was placed into the supine position on the HANA table. Both feet were wrapped with Webrill cotton wrap along with Coban. RIGHT Side The feet were placed in specialized boots for the HANA table, well seated within the boot and secured. SCDs were applied. The patient was then slid down onto a peroneal post. A preoperative AP hip was obtained to serve as a reference for determining leg lengths. Prophylactic antibiotics in the form of Cefazolin were administered. 1g of Tranxemic Acid was given intravenously within 30 minutes of incision. The right leg was then prepped with Chloraprep and draped in a standard fashion. A second prep with Chloraprep was performed prior to placement of a shower-curtain type drape with Iodine impregnated skin protection. A timeout to confirm correct identity, side and site, procedure, allergies, anesthesia, and medical concerns was performed. An obliquely oriented incision was made starting lateral to the ASIS and running distal over the Tensor Fascia Tracie (TFL) muscle belly toward the fibular head, approximately 10cm. The skin and soft tissue was dissected sharply, through Daniel?s fascia, and to the fascia of the TFL. With the fascia and superior border of the IT band identified, the fascia was incised with a new knife just above any perforators from the IT band. The TFL muscle belly was bluntly dissected away from the fascia and moved laterally. The fat between TFL and rectus was identified to ensure the dissection was not within the TFL. Blunt dissection created space between abductors and the capsule and retractor was placed over the lateral femoral neck. The fibers of the rectus femoris tendon were identified and these were freed from the anterior capsule. A second cobra retractor was placed around the medial femoral neck. The TFL was further retracted laterally to show the deep fascia. Careful dissection through this layer identified three main crossing vessels of the lateral femoral circumflex. These were cauterized in multiple locations and then cut without any noticeable bleeding. The TFL was further released bluntly from the deep fascia to expose anterior hip capsule and fat The Eulogio orthopaedic retractor was then placed beneath the TFL and against sartorius and medial soft tissues to protect and retract the soft tissues. A T-capsulotomy was then performed starting at the superior lateral acetabulum and moving distally to the intertrochanteric ridge. These capsular flaps were tagged with a No. 1 Ethibond and elevated from within. The capsular flaps were released to the shoulder of the lateral neck and to the lesser trochanter to give excellent visualization of the proximal femur. A neck osteotomy was performed using an oscillating saw based on preoperative templates. This cut started in the shoulder and of the lateral neck and exited medially. The saw was at all times directed medially to avoid injury to the greater trochanter. Gentle traction was applied to the leg and the osteotomy opened. The femoral head was removed with a corkscrew, making sure to protect the TFL on its exit. This was measured on the back table to determing the starting reamer size. Portions of the rectus obscuring visualization were minimally elevated off the superior acetabulum. An anterior retractor was placed over the anterior wall between capsule and labrum and attached to the Gripper retraction system. A posterior retractor was placed similarly. This provided excellent visualization. The contents of the cotyloid fossa were removed with electrocautery and the labrum was removed with a knife. There was a notable floor osteophyte. 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 Acetabular reaming began with a 46mm reamer. This first reaming was directed anterior to posterior and medial to get down to the true floor. This was inspected and reamed until the true floor was reached. The anterior retractor was then released and entry and exit was provided by traction on the capsular flaps. I then reamed sequentially up to a 50mm reamer where good fit was obtained. The larger reamers were oriented based on anatomical reference of the anterior and lateral sanatcruz to ensure proper abduction and anteversion. Positioning and size was confirmed with the fluoroscopy. A 50mm Depuy Spooner acetabular component was selected. The acetabulum was reamed around the periphery with the selected acetabular size to prevent a rim fit. The deep tissues were irrigated. The acetabular component was then impacted in a position of about 40-45 degrees of abduction and 15-20 degrees of anteversion, using the patient?s anatomy as the ultimate landmark. Fluoroscopy was used to confirm this. There was excellent policy officer of the acetabular component and the inserting handle was removed. The acetabular liner, Depuy [id number] polyethylene liner, was inserted and lined up with the tines of the acetabular component. There was no soft tissue interposition. The liner was then impacted into position and confirmed to be well-seated. A portion of the keara-articular cocktail was then injected around the acetabulum into the capsule and periosteum. This cocktail consisted of 123mg of Ropivacaine, 0.25mg of Epinephrine, 0.04mg of Clonidine, and 15mg of Ketorolac, diluted to 50cc. Traction was released from the femur. The leg was rotated to 120 degrees. Any remaining medial capsule was released until the lesser trochanter was easily palpable. A Wallis retractor was placed medially. The lateral capsule was further released into the shoulder to allow access to the greater trochanter. A Wallis retractor was placed over the greater trochanter which allowed the trochanter to flip in front of the capsule for excellent exposure. The leg was brought down into maximal extension and 20 degrees of adduction while ensuring there was no impingement on the acetabulum. Any remnant capsule within the trochanter was released. Piriformis and obturator externis were identified and protected. There was excellent access to the proximal femur. The lateral neck remnant was removed with a rongeur. A blunt canal probe was used to identify the canal and trajectory for later broaching. A box osteotome initiated the broach course. A small curved rasp and a curved curette were used to work laterally. Broaching then began with a size 8 Corail broach. This was inserted manually around the trochanter and into the canal before mallet blows. The broach was seated to a few millimeters below the cut level based on the neck cut and the preoperative template. Sequential broaching was continued with the [employer] pneumatic broaching device until a tight fit was obtained with good rotational control of the femur. A trial short neck was inserted along with a +5 trial head. The leg was brought out of extension and adduction and then reduced with traction and internal rotation. The leg was stable anteriorly in a position of 30 degrees of extension and 90 degrees of external rotation. Fluoroscopy was used to ensure there was no fracture and the stem was seated well. Leg lengths were checked with an AP pelvis and pelvic reference points. [employer] navigation system was used to confirm appropriate positioning and leg length and offset. Once content with the desired offset and leg lengths, the leg was brought back into extension, external rotation and adduction. The periosteum and surrounding tissue was injected with remaining portion of the keara-articular cocktail. The proximal femur was irrigated as well as the deep tissues. The Depuy Corail short neck stem, size 10, was then manually inserted into the proximal femur making sure to control rotation. It was then malleted into position with light blows, giving breaks to allow bone expansion and decrease risk of fracture. The selected Depuy Altrx Ceramic Head, size 32+5mm, was then placed onto the clean and dry trunnion and secured with impaction onto the tapered fit. The leg was brought back out of extension and adduction and reduced with traction and internal rotation. Stability was confirmed with no shuck at 90 degrees of external rotation and 30 degrees of extension. No impingement through range of motion arc. Final x-ray images were obtained with fluoroscopy to confirm adequate positioning and no intraoperative fracture. The deep tissues were thoroughly irrigated with Irrisept chlorhexadine solution. The second dose of TXA 1g was administered intravenously.The capsule was then reapproximated with the previously placed Ethibond sutures. The TFL fascia was finally closed with a No. 2 Stratafix, barbed suture. Deep tissues were then reapproximated with 0 Vicryl and a running 2-0 Vicryl. The skin was closed with a running 4-0 Monocryl in a subcuticular fashion. This was reinforced with skin glue. A Mepilex silver dressing was applied. LEFT Side Keeping the back table sterile, the drapes were removed, light handles changed, and fluoroscopy switched rooms sides. Once again, a AP hip was obtained to serve as a reference for determining leg lengths. The rightleft leg was then prepped with Chloraprep and draped in a standard fashion. A second prep with Chloraprep was performed prior to placement of a shower-curtain type drape with Iodine impregnated skin protection. A timeout was once again performed to ensure that there were no issues to proceed. An obliquely oriented incision was made starting lateral to the ASIS and running distal over the Tensor Fascia Tracie (TFL) muscle belly toward the fibular head, approximately 10cm. The skin and soft tissue was dissected sharply, through Daniel?s fascia, and to the fascia of the TFL. With the fascia and superior border of the IT band identified, the fascia was incised with a new knife just above any perforators from the IT band. The TFL muscle belly was bluntly dissected away from the fascia and moved laterally. The fat between TFL and rectus was identified to ensure the dissection was not within the TFL. Blunt dissection created space between abductors and the capsule and retractor was placed over the lateral femoral neck. The fibers of the rectus femoris tendon were identified and these were freed from the anterior capsule. A second cobra retractor was placed around the medial femoral neck. The TFL was further retracted laterally to show the deep fascia. Careful dissection through this layer identified three main crossing vessels of the lateral femoral circumflex. These were cauterized in multiple locations and then cut without any noticeable bleeding. The TFL was further released bluntly from the deep fascia to expose anterior hip capsule and fat The Eulogio orthopaedic retractor was then placed beneath the TFL and against sartorius and medial soft tissues to protect and retract the soft tissues. A T-capsulotomy was then performed starting at the superior lateral acetabulum and moving distally to the intertrochanteric ridge. These capsular flaps were tagged with a No. 1 Ethibond and elevated from within. The capsular flaps were released to the shoulder of the lateral neck and to the lesser trochanter to give excellent visualization of the proximal femur. A neck osteotomy was performed using an oscillating saw based on preoperative templates. This cut started in the shoulder and of the lateral neck and exited medially. The saw was at all times directed medially to avoid injury to the greater trochanter. Gentle traction was applied to the leg and the osteotomy opened. The femoral head was removed with a corkscrew, making sure to protect the TFL on its exit. This was measured on the back table to determing the starting reamer size. Portions of the rectus obscuring visualization were minimally elevated off the superior acetabulum. An anterior retractor was placed over the anterior wall between capsule and labrum and attached to the Gripper retraction system. A posterior retractor was placed similarly. This provided excellent visualization. The contents of the cotyloid fossa were removed with electrocautery and the labrum was removed with a knife. There was a notable floor osteophyte. 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 Acetabular reaming began with a 46mm reamer. This first reaming was directed anterior to posterior and medial to get down to the true floor. This was inspected and reamed until the true floor was reached. The anterior retractor was then released and entry and exit was provided by traction on the capsular flaps. I then reamed sequentially up to a 50mm reamer where good fit was obtained. The larger reamers were oriented based on anatomical reference of the anterior and lateral santacruz to ensure proper abduction and anteversion. Positioning and size was confirmed with the fluoroscopy. A 50mm Depuy Spooner acetabular component was selected. The acetabulum was reamed around the periphery with the selected acetabular size to prevent a rim fit. The deep tissues were irrigated. The acetabular component was then impacted in a position of about 40-45 degrees of abduction and 15-20 degrees of anteversion, using the patient?s anatomy as the ultimate landmark. Fluoroscopy was used to confirm this. There was excellent policy officer of the acetabular component and the inserting handle was removed. The acetabular liner, Depuy [id number] polyethylene liner, was inserted and lined up with the tines of the acetabular component. There was no soft tissue interposition. The liner was then impacted into position and confirmed to be well-seated. A portion of the keara-articular cocktail was then injected around the acetabulum into the capsule and periosteum. This cocktail consisted of 123mg of Ropivacaine, 0.25mg of Epinephrine, 0.04mg of Clonidine, and 15mg of Ketorolac, diluted to 50cc. Traction was released from the femur. The leg was rotated to 120 degrees. Any remaining medial capsule was released until the lesser trochanter was easily palpable. A Wallis retractor was placed medially. The lateral capsule was further released into the shoulder to allow access to the greater trochanter. A Wallis retractor was placed over the greater trochanter which allowed the trochanter to flip in front of the capsule for excellent exposure. The leg was brought down into maximal extension and 20 degrees of adduction while ensuring there was no impingement on the acetabulum. Any remnant capsule within the trochanter was released. Piriformis and obturator externis were identified and protected. There was excellent access to the proximal femur. The lateral neck remnant was removed with a rongeur. A blunt canal probe was used to identify the canal and trajectory for later broaching. A box osteotome initiated the broach course. A small curved rasp and a curved curette were used to work laterally. Broaching then began with a size 8 Corail broach. This was inserted manually around the trochanter and into the canal before mallet blows. The broach was seated to a few millimeters below the cut level based on the neck cut and the preoperative template. Sequential broaching was continued with the [employer] pneumatic broaching device until a tight fit was obtained with good rotational control of the femur. A trial short neck was inserted along with a +5 trial head. The leg was brought out of extension and adduction and then reduced with traction and internal rotation. The leg was stable anteriorly in a position of 30 degrees of extension and 90 degrees of external rotation. Fluoroscopy was used to ensure there was no fracture and the stem was seated well. Leg lengths were checked with an AP pelvis and pelvic reference points. [employer] navigation system was used to confirm appropriate positioning and leg length and offset. This indicated under-correction of offset and slightly less of offset, improved with standard neck. Once content with the desired offset and leg lengths, the leg was brought back into extension, external rotation and adduction. The periosteum and surrounding tissue was injected with remaining portion of the keara-articular cocktail. The proximal femur was irrigated as well as the deep tissues. The Depuy Corail standard collared stem, size 10, was then manually inserted into the proximal femur making sure to control rotation. It was then malleted into position with light blows, giving breaks to allow bone expansion and decrease risk of fracture. The selected Depuy Altrx Ceramic Head, size 32+5mm, was then placed onto the clean and dry trunnion and secured with impaction onto the tapered fit. The leg was brought back out of extension and adduction and reduced with traction and internal rotation. Stability was confirmed with no shuck at 90 degrees of external rotation and 30 degrees of extension. No impingement through range of motion arc. Final x-ray images were obtained with fluoroscopy to confirm adequate positioning and no intraoperative fracture. The deep tissues were thoroughly irrigated with Irrisept chlorhexadine solution. The capsule was then reapproximated with the previously placed Ethibond sutures. The TFL fascia was finally closed with a No. 2 Stratafix, barbed suture. Deep tissues were then reapproximated with 0 Vicryl and a running 2-0 Vicryl. The skin was closed with a running 4-0 Monocryl in a subcuticular fashion. This was reinforced with skin glue. A Mepilex silver dressing was applied. At the end of the case, all counts were correct. Pat was transferred to the hospital bed without difficulty and suffering no apparent complication. Pat has a good prognosis. Physical therapy will start today and without restrictions, weight-bearing as tolerated. Aspirin 81mg BID will be used for DVT prophylaxis.
--- NOTE | 2023-03-02 13:45 | W.ANESPOSTOP ---
Postoperative Evaluation Date, Time and Location Date Performed: 03/02/23 Time Performed: 12:15 Patient Location: Day Surgery Unit Vital Signs Most Recent Imported Vital Signs: Most Recent Vital Signs Temp Pulse Resp BP Pulse Ox 36.2 C L 74 18 129/71 96 03/02/23 13:00 03/02/23 13:00 03/02/23 13:00 03/02/23 13:00 03/02/23 13:00 Pain Score Most Recent Pain Score: Most Recent Pain Score Pain Level 0 03/02/23 13:00 Assessment Mental Status: Awake (Alert & Oriented to Patient Baseline) Airway and Respiratory Function: Patent airway with normal (patient baseline) respiratory exam Cardiovascular Function: Hemodynamically Stable Hydration Status: Adequately Hydrated Nausea & Vomiting: No Nausea or Vomiting Pain: Pt. Denies Any Pain Peripheral Nerve Block: Regional nerve block not resolved at time of post operative discharge (Spinal appropriately wearing off, RN to continue to monitor. If does not fully resolve to contact anesthesia. )
--- NOTE | 2023-03-02 13:55 | W.PM.DS.N ---
Date of service: 03/02/23 Time of Service: 13:54 DS: Diagnosis Discharge Diagnosis (1) Bilateral primary osteoarthritis of hip: Status: Chronic Discharge Plan Disposition Patient Disposition: Home Condition: Good Discharge Details Reason For Visit: Bilateral hip DJD Attending Provider: Zaki Mcdonough Primary Care Provider: Nicolle Price Home Meds and New Rx's Prescriptions: New celecoxib [Celebrex] 200 mg capsule 200 mg PO BID PRNQty: 60 0RF Rx Instructions: Take one tablet twice daily for pain and inflammation aspirin 81 mg tablet,delayed release (DR/EC) 81 mg PO BID 30 Days Qty: 60 0RF acetaminophen 500 mg tablet 1,000 mg PO Q8H PRN Qty: 90 0RF Rx Instructions: Take two tablets up to every 8 hours as needed for pain pantoprazole 40 mg tablet,delayed release (DR/EC) 40 mg PO DAILY Qty: 14 0RF dexamethasone 4 mg tablet 4 mg PO DAILY Qty: 2 0RF Rx Instructions: Take one tablet once daily for two days docusate sodium [Colace] 100 mg capsule 100 mg PO BID Qty: 30 0RF oxycodone 5 mg tablet 5 mg PO Q6H PRNQty: 12 0RF Rx Instructions: Take one tablet up to every 6 hours as needed for severe postoperative pain Continued multivitamin [Daily Multi-Vitamin] 1 EACH tablet 1 tab PO DAILY metoprolol succinate 50 mg tablet extended release 24 hr 50 mg PO DAILY Patient Comments: TK 1 T PO QD atorvastatin 40 mg tablet 20 mg PO HS Patient Comments: TK 1 T PO HS Discharge Instructions Additional Instructions: Total Hip Discharge Instructions Activity: The most important activity is to walk. You should try to take short walks a few times a day. You have no restrictions on movement or positioning, but do not try to force what you do. You will find some stiffness and weakness with hip flexion (lifting your knee). Do not try to strengthen this too early, continue to practice walking and stairs and this will come. - Outpatient physical therapy can be helpful to help return you to a normal gait and improve your flexibility and strength. This can start around 2 weeks. For some patients, it?s not necessary. Usually this is determined at the time of discharge or at the first post-operative visit. - You should wear the MARIA VICTORIA hose on both legs for 2 weeks. Dressing: Keep the surgical dressing in place for at least one week. After the first week it may be removed and replace with light gauze and tape or nothing. It may get wet after 3 days but avoid soaking the dressing. If it gets wet, just lightly pat dry. It is important to always keep some gauze between skin folds, especially when you are sitting. Spend some time with the wound exposed when you are lying flat as the incision does wrinkle onto itself. Medications: - You should take Tylenol and an anti-inflammatory Celebrex as your primary pain control medications. If the Celebrex is too expensive or not covered, please call the office for another alternative (Advil/Ibuprofen or Naproxen/Aleve). - You have been prescribed a stronger pain medication Oxycodone for breakthrough pain, take as needed as prescribed. - You have also been prescribed a stomach acid reduction agent Pantoprozole to help reduce stomach acid and reflux. - You have also been prescribed Decadron to help with post-operative nausea and pain. You will take this for two days starting tomorrow. - You will be taking Aspirin 81mg twice a day for DVT prevention unless instructed otherwise. - If you have constipation you should take Colace (which has been prescribed) or Miralax (which is available [id number]). It takes most people 3-4 days to have a bowel movement. Follow-up: 2 weeks If you have any acute concerns or questions, please do not hesitate to contact the office at [phone]. You may contact Dr. Mcdonough with any questions after hours through the hospital at [phone] or on his cell phone at [phone]. Stand Alone Forms: Anesthesia Discharge Inst., Petr Carreon (DSU) Referrals: Zaki Mcdonough MD [ [facility] STAFF PHYSICIAN] - Equipment/Supplies: Walker Activity:: Activity as Tolerated Remove Dressings/Wound Care:: Do Not Remove Shower/Bathe:: Cover Diet:: As Tolerated Discharge Orders Discharge Orders: Discharge Order (Routine); Ordered 03/02/23 Ordered By: Zaki Mcdonough DS: Summary Time Spent with Patient providing and/or coordinating discharge services: Less than 30 minutes Status at Discharge Functional status at discharge: uses cane/walker Overall status at discharge: patient is progressing back to baseline Mental Status: mental status grossly normal Speech and Movement: speech and movement normal Mood: congruent mood Affect: normal affect Exam Psych Mental Status: mental status grossly normal Speech and Movement: speech and movement normal Mood: congruent mood Affect: normal affect DS: Data Vitals/I&O Vitals and I&O: Vital Signs Temperature 97.9 F 03/02/23 06:05 Pulse 75 03/02/23 06:05 Pulse Rhythm Regular 03/02/23 06:05 Respiratory Rate 16 03/02/23 06:05 Respiratory Depth Deep 03/02/23 06:05 Blood Pressure 150/82 H 03/02/23 06:05 Pulse Oximetry 95 03/02/23 06:05 Oxygen Delivery Method Room Air 03/02/23 06:05 Oxygen Flow Rate 0 03/02/23 06:05 Intake & Output 03/01/23 03/01/23 03/02/23 11:59 23:59 11:59 Weight 161 lb 2.526 oz PFSH All Active Problems Bilateral primary osteoarthritis of hip (Chronic) Last Depo-Medrol intra-articular injections: 09/10/2022 Endometrial thickening on ultrasound (Acute) Persistent, 8.7 mm stripe on ultrasound 01/16. Previous endometrial sampling, inactive endometrium. Would consider hysteroscopy with dilation and curettage for further evaluation. Left ovarian cyst (Acute) Persistent, septated Lumbago (Acute) Hyperlipidemia (Chronic) CAD (coronary artery disease) (Chronic) Discharge planning issues (Acute) DVT prophylaxis (Acute) Dyslipidemia (Acute) Chest pain (Acute) Medical History Fracture of right tibia and fibula (~1984) treated conservatively Obesity Osteoarthritis Surgical History Adhesive capsulitis of right shoulder (~1988) JERONIMO Colonoscopy - MAC (05/26/17) Hx of vein stripping [place] [facility] [place] stockings S/P cardiac cath (2019) Social History Smoking/Tobacco Use Status: Never Smoking risk assessment performed?: Yes Alcohol Intake: current Alcohol Intake frequency: holidays/special occasions only Alcohol type: wine Drug use: Never Substance use type: does not use Housing: house Do you feel safe at home: Yes Do you feel safe in your relationship?: Yes Additional Social history: unable to assess privately- 03/02/23 mkb Female Reproductive History Menstrual Menopause type: natural History History 2 Para 2 Hx # Term Pregnancies 2 Multiple births Hx # Pregnancies Ectopic pregnancies AB induced Hx Number of Living Children 2 AB spontaneous Time Spent with Patient Time Spent with Patient: <45 minutes Time was spent: obtaining and/or reviewing separately otained hiistory, indepentently interpreting results and counseling the patient
--- NOTE | 2023-03-02 15:15 | PT.INIE ---
Date of service: 03/02/23 Time of Service: 14:10 PT Notes Visit Reasons: Bilateral hip DJD Physical Therapy Day Surgery Initial Evaluation Date: 03/02/2023 Referring Doctor: BAHMAN Ram PT Orders: PT CONSULT: S/P Ortho surgery Precautions: Fall. Standard. WBAT on BLE with AD. Patient Profile/Admitting Diagnosis: Leonie is a 77-year-old female with degenerative joint disease of both hips and status post bilateral total hip arthroplasties on postoperative day 0. PMHX: Medical History?(Updated 02/25/23 @ 10:46 by Elicia Heredia) Fracture of right tibia and fibula (~1984) treated conservativelyObesity Osteoarthritis Surgical History?(Updated 02/25/23 @ 10:46 by Elicia Heredia) Adhesive capsulitis of right shoulder (~1988) MUAColonoscopy - MAC (05/26/17) Hx of vein stripping Bilateral legs [facility] [place] continues to wear compression stockings S/P cardiac cath (2018) Social History/Home Situation: Lives with Mason in a private home with 3 steps to enter with no rails. Independent with all aspects of ADLs prior to surgery. 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 Mildly lightheaded at during the first 10-12 steps from bedside to bedside recliner about 10 steps using walker. Objective: General Observation: Resting in bed. Mepilex Ag over surgical incision. TEDS to be legs. Mental Status: Alert and oriented as to person, place, time, and purpose. Able to pay attention, focus, and respond appropriately. Pain: 7/10 in B quads Vital Signs: WNL as closely monitored by nursing staff ROM: Right Lower Extremity: Hip flexion WFL. Hip abduction WFL. Knee flexion WFL. Ankle dorsiflexion WFL. Ankle plantarflexion WFL. Left Lower Extremity: Hip flexion WFL. Hip abduction WFL. Knee flexion WFL. Ankle dorsiflexion WFL. Ankle plantarflexion WFL. Strength: Right Lower Extremity: Hip flexors 4-/5. Hip abductors 4-/5. Knee flexors 4/5. Knee extensors 4/5. Ankle dorsiflexors 5/5. Ankle plantarflexors 5/5. Left Lower Extremity: Hip flexors 4-/5. Hip abductors 4-/5. Knee flexors 4/5. Knee extensors 4/5. Ankle dorsiflexors 5/5. Ankle plantarflexors 5/5. Bed Mobility/Transfers: Rolling independent Supine to sit supervision Sit to stand contact-guard assist with cues provided for hand placement, posture, and movement sequencing Stand to sit standby assist stand by assist with cues provided for hand placement, posture, and movement sequencing Bed to reclining chair contact-guard assist with cues provided for hand placement, posture, and movement sequencing Gait: 10-12 steps with FWW with contact guard assist and moderate verbal cueing for gait sequence/limb advancement as well as AD management. Patient reported being mildly lightheaded and needed to sit down on recliner. Nurse Nehal reassessed vital signs which were all WNL. Patient again, with encouragement, completed another 100 feet using same device with stand by assist, step thorugh heel-toe gait pattern with less cueing than before. No more lightheadedness but reported increased pain at anterior B hips of up to 7/10 and requested to sit down on chair. Nurse Calvert gave patient Tylenol for the pain duirng this rest. Stairs: Tolerated 3 x 4 inch steps and 2 x 6 inch steps while holding onto 1 rail and cane with the other hand requiring only contact-guard assist with step to gait pattern and minimal verbal cueing for gait sequence and overall safety. Balance: Static Sitting: Normal Dynamic Sitting: Normal Static Standing: Fair Dynamic Standing: Fair Special Tests: Mobility Limitations Standardized Measure [facility]-PAC 6 clicks Basic Mobility Inpatient Short Form: Raw Score: 20 CMS Score: 36% deficit Informed Consent/Education: Patient instructed in purpose of PT consult. Packet containing SANTOS exercise protocol has been given to patient. Trained patient with correct performance of exercises below to maximize motor control, joint flexibility, soft tissue extensibility of the [] hip musculature to facilitate return to independent functional mobility performance. Access Code: [email or web address] URL: [email or web address] Date: 03/02/2023 Prepared by: Erika Reyes Exercises - Gluteal Sets - 1 x daily - 7 x weekly - 1 sets - 10 reps - 5 hold - Supine Heel Slide - 1 x daily - 7 x weekly - 1 sets - 10 reps - 5 hold - Supine Ankle Pumps - 1 x daily - 7 x weekly - 1 sets - 10 reps - 5 hold - Seated March - 1 x daily - 7 x weekly - 1 sets - 10 reps - 5 hold - Seated Long Arc Quad - 1 x daily - 7 x weekly - 1 sets - 10 reps - 5 hold Assessment: Patient requires the use of a front-wheeled walker for all mobility ADL performance to maximize independence and reduce fall risk. Patient presents with clinical signs and symptoms consistent with current/admitting diagnoses that have resulted to mobility limitations, gait instability, generalized weakness, and impairment of motor control as demonstrated by the following impairment level findings: 1. Decreased strength to the hips major muscle groups 2. Impaired standing balance Impairments are contributing to the following functional limitations: 1. Inability to safely ambulate without assistive device 2. Increase completion time for mobility ADL performance 3. Increased fall risk Patient is assessed as a 00550 complexity based on the following: History: 77-year-old female with impairment level findings, functional limitations, and past medical history as indicated above Examination: Demonstrable impairment in strength, balance, and mobility level with underlying impairments and functional limitations as documented above Presentation: Evolving Decision Makin moderate complexity Goals: N/A. PT evaluation and 1-2 treatment sessions only for functional mobility training using recommended AD and for HEP instruction. Plan of Care/Treatment Plan: N/A. PT evaluation and 1-2 treatment session only for functional mobility training using recommended AD and for HEP instruction. DISCHARGE RECOMMENDATIONS: Home when medically cleared by orthopedic surgeon. Recommend outpatient PT services in order to optimize functional mobility outcomes and facilitate return to independent community ambulation without an assistive device. TREATMENT CODE/TIME: 9716 2 x 30 minutes for 1 unit, 72355 x 25 minutes for 2 units beginning at 14:10 PM. Thank you for the opportunity to participate in the care of this patient. Erika Reyes PT, DPT, CLT [facility] [place], [place]
== END 2023-03-02 16:10 | disposition home or self-care (01) ==
PROVIDERS: PCP Nurse Practitioner Family; Visit Provider Student in an Organized Health Care Education/Training Program
PROC: 0SR90JZ Replacement of Right Hip Joint with Synthetic Substitute, Open Approach (ICD-10-PCS; CPT 27130; principal; 2023-03-02 07:30)
DX: M16.0 Bilateral primary osteoarthritis of hip (principal); I25.10 Atherosclerotic heart disease of native coronary artery without angina pectoris; E78.5 Hyperlipidemia, unspecified; M54.50 Low back pain, unspecified
CPT/HCPCS: 20985; 27130; C1776; 73501; J0690; J1100; J2250; J2405

== ENCOUNTER 2023-03-15 09:27 | Outpatient (CLI) | payer MEDICARE, SELFPAY ==
--- NOTE | 2023-03-15 08:45 | DI.RAD_ITS ---
Exam(s) XR HIP PELVIS ADULT BL EXAM: XR HIP PELVIS ADULT BL CLINICAL HISTORY: F/U FRACTURE. TECHNIQUE: 2D digital imaging was performed. Four images were obtained. AP and lateral views were o btained. COMPARISON: CR XR PELVIS AP from 02/25/2023 XA XR HIP LT IN OR from 03/02/2023 XA XR HIP RT IN OR from 03/02/2023 FINDINGS: BONES: There are stable post operative changes present. The orthopedic hardware appears in good posi tion. There is a question of a cortical lucency along the lateral aspect of the right greater trocha nter which may reflect a nondisplaced fracture. JOINTS: The orthopedic hardware is in good position. No evidence of hardware loosening. SOFT TISSUE: Normal. IMPRESSION: 1. Stable bilateral total hip replacements. 2. Question of a nondisplaced fracture involving the lateral aspect of the right greater trochanter. DATA REPOSITORY: RADIATION DOSE DELIVERED:
== END 2023-03-15 09:28 | disposition home or self-care (01) ==
LOC: DIORS 09:27
PROVIDERS: PCP Nurse Practitioner Family; Referring Provider Nurse Practitioner Family; Visit Provider Physician Assistant
DX: Z47.1 Aftercare following joint replacement surgery; Z96.643 Presence of artificial hip joint, bilateral
CPT/HCPCS: 73521

== ENCOUNTER → 2023-04-05 09:08 | Outpatient (BNVA) | payer MEDICARE, SELFPAY | PROVIDERS: PCP Nurse Practitioner Family; Referring Provider Nurse Practitioner Family; Visit Provider Student in an Organized Health Care Education/Training Program | DX: Z47.1 Aftercare following joint replacement surgery (principal); Z96.641 Presence of right artificial hip joint; Z96.642 Presence of left artificial hip joint ==

== ENCOUNTER → 2023-05-17 09:03 | Outpatient (BNVA) | payer MEDICARE, SELFPAY | PROVIDERS: PCP Nurse Practitioner Family; Referring Provider Nurse Practitioner Family; Visit Provider Student in an Organized Health Care Education/Training Program | DX: Z47.1 Aftercare following joint replacement surgery (principal); Z96.643 Presence of artificial hip joint, bilateral ==

== ENCOUNTER → 2023-06-30 03:30 | Outpatient (CLI) | payer MEDICARE, SELFPAY ==
--- NOTE | 2023-06-30 | DI.MAMMO_ITS ---
Exam(s) MAMMO SCREENING EXAM: MAMMO SCREENING CLINICAL HISTORY: SCREENING MAMMO Z12.31 TECHNIQUE: Mammograms were interpreted according to the usual protocol including computer analysis w [employer] CAD system, tomosynthesis and C-view imaging. COMPARISON: 2013 through 2021 FINDINGS: The breasts are composed of scattered fibroglandular densities, Breast Density category B. No suspicious masses or suspicious microcalcifications are seen. No skin thickening or abnormal axillary lymph nodes are seen. There has been no significant change from prior exams. IMPRESSION: BI-RADS Category 1, Negative mammogram Yearly screening mammography is recommended. Breast Density - Category B, scattered fibroglandular densities. A negative radiographic report should not delay biopsy if a dominant or clinically suspicious mass is present. Up to ten percent of cancers are not identified on mammography. A negative report may reinforce clinical impression. Adenosis and dense breasts may obscure an underlying neoplasm. False positive reports average 6 to 10%. Patient will receive a letter notifying them of these results.
== END ==
PROVIDERS: PCP Nurse Practitioner Family; Visit Provider Nurse Practitioner Family
DX: Z12.31 Encounter for screening mammogram for malignant neoplasm of breast (principal)
CPT/HCPCS: 77063; 77067

== ENCOUNTER 2023-07-17 19:34 | Emergency (ER) | payer MEDICARE, SELFPAY ==
[2023-07-17 19:37] VITALS: BP 141/83; PULSE 110; RESP 18; TEMP 37.2; O2SAT 97
--- NOTE | 2023-07-17 19:48 | ED.GENADUL_ITS ---
HPI General Date/Time Provider Initiated Documentation: 07/17/23 19:45 . HPI Narrative: 77 year-old female presents to ED today by POV/ambulating with a chief complaint of respiratory infection, productive green cough, mild shortness of breath, some LLQ tenderness with onset earlier this week. Quality described as generalized cough and cold symptoms, is tolerating PO, no radiation to chest pain, shortness of breath, intractable nausea/vomiting, severe body aches, neck stiffness. Severity is described as 7-8/10. Palliating factors include taking some OTC medicines like NyQuil. Provoking factors include nothing specific. Events leading up to the incident/Associated Symptoms: Patient is vaccinated for Covid- 19. Patient also endorses some mild LLQ tenderness with history ovarian cysts but no bowel changes. Patient not anticoagulated. Related Data Home Medications Medication Instructions Recorded Confirmed multivitamin (Daily Multi-Vitamin 1 tab PO DAILY 05/20/15 07/17/23 tablet) atorvastatin 40 mg tablet 20 mg PO HS 03/30/20 07/17/23 metoprolol succinate 50 mg 50 mg PO DAILY 03/30/20 07/17/23 tablet,extended release 24 hr Allergies Allergy/AdvReac Type Severity Reaction Status Date / Time acetaminophen [From Kenn] AdvReac neuropathy Verified 07/17/23 19:42 chlorpheniramine AdvReac neuropathy Verified 07/17/23 19:42 [From Kenn] oxymetazoline HCl AdvReac neuropathy Verified 07/17/23 19:42 [From Kenn] pheniramine maleate AdvReac neuropathy Verified 07/17/23 19:42 [From Kenn] phenylephrine HCl AdvReac neuropathy Verified 07/17/23 19:42 [From Kenn] pseudoephedrine HCl AdvReac neuropathy Verified 07/17/23 19:42 [From Kenn] General Stated Complaint: RespSymp EZEQUIEL: 4 Review of Systems All systems reviewed & are unremarkable except as noted in HPI and below Exam Narrative Exam Narrative: GENERAL APPEARANCE: Well-nourished, non-toxic, awake and alert, atraumatic, no acute distress. SKIN: Warm, pink, dry, intact, without rashes/lesions/ulcerations. HEAD: Normocephalic, atraumatic, normal hair distribution for gender/age. EYES: Pupils PERRLA, EOMs intact without nystagmus, normal conjunctiva, no exudates on lids/lashes. ENT: Nares patent, no circumoral cyanosis, no facial swelling NECK: Supple, trachea midline, painless cervical ROM. LUNGS/CHEST: Lungs CTA bilaterally- no focal rhonchi, no rales or wheezing, coarse breath sounds, non-labored respirations, normal A/P diameter, symmetrical expansion, no chest wall deformity HEART (CV/PV): Regular rate and rhythm without murmur, no peripheral edema, no JVD. ABDOMEN: Soft, non-distended, no guarding, some mild LLQ tenderness without Rovsing's/rebound tenderness. MSK: Normal ROM, no swelling/deformity to bilateral UEs or LEs, moving all extremities without weakness, no cyanosis, spine midline without tenderness, normal curvature. NEURO: Mental Status AAOx4 - alert to person, place, time, events No facial droop, no forehead involvement. Motor: No focal weakness - strength 5/5 in bilateral UEs and LEs, proximal and distal, symmetric. Sensory: sensation intact to light touch globally. Gait normal: patient ambulated without ataxia into ED room. PSYCH: euthymic, cooperative, pleasant, appropriate speech Course Vital Signs Vital signs: Vital Signs Temperature 37.2 C 07/17/23 19:37 Pulse 110 H 07/17/23 19:37 Respiratory Rate 18 07/17/23 19:37 Blood Pressure 141/83 H 07/17/23 19:37 Pulse Oximetry 97 07/17/23 19:37 Temperature 37.2 C 07/17/23 19:37 Temperature Source Oral 07/17/23 19:37 Pulse 110 H 07/17/23 19:37 Respiratory Rate 18 07/17/23 19:37 Respiratory Effort Normal, Non-Labored 07/17/23 19:41 Blood Pressure 141/83 H 07/17/23 19:37 Blood Pressure Position Sitting 07/17/23 19:37 Pulse Oximetry 97 07/17/23 19:37 Oxygen Delivery Method Room Air 07/17/23 19:37 Oxygen Flow Rate 0 07/17/23 19:37 Pain Level 6 07/17/23 19:37 Medical Decision Making This dictation utilizes [id number] dictation software and may contain unedited grammatical errors. 77 y/o F presents to ED today with a chief complaint of respiratory infection, green sputum, fatigued and body aches, low-grade fever, and incidental mild LLQ discomfort. Patient is vaccinated for Covid-19, onset is a few days. Patients' medical history: Hyperlipidemia, persistent left ovarian cyst CAD. Family and social history: noncontributory, eats healthy, exercises. Pertinent exam findings / vital signs include coarse adventitious lung sounds without focal diminishment or rales or wheezing, nonlabored respirations, mild left lower quadrant abdominal tenderness without peritoneal signs. Differential / pathologies of concern include upper or lower respiratory infection like bronchitis, viral syndrome, low suspicion for acute emergent abdominal pathology with the patient's history of persistent left ovarian cyst, denies any bowel changes suspicious for diverticulitis. Diagnostic studies of: -CBC, CMP, lipase, Covid/Flu/RSV PCR. -CBC benign -CMP benign -Lipase wnl - Covid/Flu/RSV neg Interventions of: -Discussed and offered antibiotics for empiric pneumonia coverage despite no findings on radiographs as well as discussed viral syndrome with the patient, she opted to watchfully observe her own condition at home and would return for any negative changes. Her left lower quadrant tenderness is mild and she has no reticulitis, she has history of left persistent ovarian cyst, we discussed after-hours inability to obtain ultrasound at this time and perhaps unnecessary need for radiation by CT scan. Patient will follow-up with PCP to ultrasound, will return for more urgent CT if any worsening. Findings not consistent with diverticulitis, hypoxic respiratory failure, focal PNA. Disposition of Upper Respiratory Infection. Patient verbalized understanding of the plan and return to ED criteria and engaged in shared decision making. Medical Records Medical records reviewed: Yes I reviewed the patient's medical records. Imaging Data Radiologic Study: Imaging: X-Ray Radiologist's impression: Exam: XR Chest Exam date and time: 07/17/2023 9:44 PM Age: 77 years old Clinical indication: Cough TECHNIQUE: Imaging protocol: Radiologic exam of the chest. Views: 2 views. COMPARISON: CR XR CHEST 2V PA LATERAL 12/09/2022 11:02 AM FINDINGS: Lungs: Clear lungs. Pleural spaces: No pneumothorax. No sizable pleural effusion. Heart/Mediastinum: No cardiomegaly. Bones/joints: Unremarkable. IMPRESSION: Clear lungs. Dictated and Authenticated by: Noam Light MD. Ordering:JACY Arellano MD Lab Data Lab results reviewed: Yes I reviewed the patient's lab results. Labs: Laboratory Tests Range/Units 07/17/23 07/17/23 20:05 20:13 WBC (4.4-10.8) 10^3/uL 8.39 RBC (3.93-5.22) 10^6/uL 4.04 Hgb (11.2-15.7) g/dL 12.8 Hct (36.0-46.0) % 37.7 MCV (80-95) fL 93 MCH (27.0-33.0) pg 31.7 MCHC (32.0-36.0) % 34.0 RDW (11.7-14.6) % 12.4 Plt Count (130-400) 10^3/uL 212 MPV (8.0-11.0) fL 8.7 Immature Gran % 0.4 Neutrophils % 70.9 Lymphocytes % 20.5 Monocytes % 6.9 Eosinophils % 0.8 Basophils % 0.5 Nucleated RBC % (0.0-0.3) % 0.0 Absolute Neutrophils (1.2-6.7) 10^3/uL 5.95 Absolute Lymphocytes (1.2-3.4) 10^3/uL 1.72 Absolute Monocytes (0.1-0.8) 10^3/uL 0.58 Absolute Eosinophils (0.0-0.7) 10^3/uL 0.07 Absolute Basophils (0.0-0.2) 10^3/uL 0.04 D-Dimer (<500) ng/mlFEU 679 H VBG Lactate (0.6-1.4) mmol/L 0.9 Sodium (136-145) mmol/L 141 Potassium (3.5-5.1) mmol/L 4.0 Chloride (98-107) mmol/L 103 Carbon Dioxide (21.0-32.0) mmol/L 30.4 Anion Gap (3-11) mmol/L 7.6 BUN (7-18) mg/dL 20 H Creatinine (0.55-1.02) mg/dL 1.2 H Est GFR (CKD-EPI 2020) (mL/min/1.73m2) 46.33 Glucose (74-106) mg/dL 127 H Calcium (8.5-10.1) mg/dL 9.4 Total Bilirubin (0.2-1.0) mg/dL 0.5 AST (15-37) U/L 20 ALT (14-59) U/L 24 Alkaline Phosphatase (46-116) U/L 74 Total Protein (6.4-8.2) g/dL 7.7 Albumin (3.4-5.0) g/dL 3.8 Lipase (16-77) U/L 61 Procalcitonin ng/mL < 0.1 COVID-19 Source Nasopharynx SARS-CoV-2 (PCR) (Negative) Negative Influenza Type A (PCR) (Negative) Negative Influenza Type B (PCR) (Negative) Negative RSV (PCR) (Negative) Negative Quality:SDOH Health Related Social Needs: No Data to Display PFSH All Active Problems (Updated 07/17/23 @ 22:10 by BAHMAN Gale) Upper respiratory infection (Acute) History of total right hip replacement (Acute 03/02/23) History of total left hip replacement (Acute 03/02/23) Endometrial thickening on ultrasound (Acute) Persistent, 8.7 mm stripe on ultrasound 01/16. Previous endometrial sampling, inactive endometrium. Would consider hysteroscopy with dilation and curettage for further evaluation. Left ovarian cyst (Acute) Persistent, septated Lumbago (Acute) Hyperlipidemia (Chronic) CAD (coronary artery disease) (Chronic) Discharge planning issues (Acute) DVT prophylaxis (Acute) Dyslipidemia (Acute) Chest pain (Acute) Medical History Fracture of right tibia and fibula (~1984) treated conservatively Obesity Osteoarthritis Surgical History Adhesive capsulitis of right shoulder (~1988) JERONIMO Colonoscopy - MAC (05/26/17) Hx of vein stripping Bilateral legs [facility] [place] ~ continues to wear compression stockings S/P cardiac cath (2018) Social History Smoking/Tobacco Use Status: Never Smoking risk assessment performed?: Yes Alcohol Intake: current Alcohol Intake frequency: holidays/special occasions only Alcohol type: wine Drug use: Never Substance use type: does not use Housing: house Current gender identity: female Do you feel safe at home: Yes Do you feel safe in your relationship?: Yes Additional Social history: unable to assess privately- 03/02/23 mkb Female Reproductive History Menstrual Menopause type: natural History History 2 Para 2 Hx # Term Pregnancies 2 Multiple births Hx # Pregnancies Ectopic pregnancies AB induced Hx Number of Living Children 2 AB spontaneous Discharge Plan Disposition Patient Disposition: Home Condition: Stable Discharge Details Clinical Impression: Upper respiratory infection Primary Care Provider: Nicolle Price ED Provider: Adan Turner Home Meds and New Rx's Prescriptions: Continued multivitamin [Daily Multi-Vitamin] 1 EACH tablet 1 tab PO DAILY metoprolol succinate 50 mg tablet extended release 24 hr 50 mg PO DAILY Patient Comments: TK 1 T PO QD atorvastatin 40 mg tablet 20 mg PO HS Patient Comments: TK 1 T PO HS Discharge Instructions Instructions: Upper Respiratory Infection (ED) Additional Instructions: You were seen in the emergency department for your upper respiratory infection since Wednesday we discussed the possibility of viral infection versus bacterial a nd you opted to wait for viral possible resolution before starting empiric antibiotics. I think this is a prudent choice. Please use therapeutic dosing of Tylenol (acetamenophen) & Advil (ibuprofen) in an alternating fashion as follows: Take 1000mg of Tylenol every 6 hours without missing doses- that is 4 times per day. [place] in between the Tylenol dosings, take 400-600mg of Advil also on a 6 hour schedule, that is also 4 times per day. The daily maximum dosing of Tylenol is 4000mg, and the daily maximum dosing of Advil is 2400mg. This is safe to do for weeks. Please note that some common cold medications & prescription pain medications may contain acetamenophen and you need to read OTC drug labels and factor that in to maximum daily dosings. Your blood work was completely reassuring that there is no severe infection, your abdominal exam is reassuring that there is no severe surgical problem in the abdomen and I think it is best to pursue an outpatient ultrasound of this area should you continue to experience abdominal pain. Referrals: Nicolle Price [Primary Care Provider] - Discharge Data Discharge Date/Time-TO BE ENTERED AT DEPARTURE: 07/17/23 22:21
[2023-07-17 20:18] LABS: Lactate 0.9 mmol/L (0.6-1.4)
[2023-07-17 20:21] LABS: Abs Immature Grans 0.03 10^3/uL (0.0-0.06); Absolute Basophil Count 0.04 10^3/uL (0.0-0.2); Absolute Eosinophil Count 0.07 10^3/uL (0.0-0.7); Absolute Lymphocyte Count 1.72 10^3/uL (1.2-3.4); Absolute Monocyte Count 0.58 10^3/uL (0.1-0.8); Absolute Neutrophil Count 5.95 10^3/uL (1.2-6.7); Basophils % 0.5; Eosinophils % 0.8; HCT 37.7 % (36.0-46.0); HGB 12.8 g/dL (11.2-15.7); Immature Grans % 0.4; Lymphocytes % 20.5; MCH 31.7 pg (27.0-33.0); MCV 93 fL (80-95); MPV 8.7 fL (8.0-11.0); Monocytes % 6.9; Neutrophils % 70.9; Platelet Count 212 10^3/uL (130-400); RBC 4.04 10^6/uL (3.93-5.22); RDW 12.4 % (11.7-14.6); RDW-SD 42.7 fL; WBC 8.39 10^3/uL (4.4-10.8)
[2023-07-17 20:44] LABS: ALT 24 U/L (14-59); AST 20 U/L (15-37); Albumin 3.8 g/dL (3.4-5.0); Alkaline Phosphatase 74 U/L (46-116); Anion Gap 7.6 mmol/L (3-11); BUN 20 mg/dL (7-18); Bilirubin, Total 0.5 mg/dL (0.2-1.0); CO2 30.4 mmol/L (21.0-32.0); CREATININE 1.2 mg/dL (0.55-1.02); Calcium 9.4 mg/dL (8.5-10.1); Chloride 103 mmol/L (98-107); Estimated GFR 46.33 (mL/min/1.73m2); Glucose 127 mg/dL (74-106); Lipase 61 U/L (16-77); Sodium 141 mmol/L (136-145); Total Protein 7.7 g/dL (6.4-8.2)
[2023-07-17 20:44] LABS: COVID-19 PCR Negative (Negative); Influenza A PCR Negative (Negative); Influenza B PCR Negative (Negative); RSV PCR Negative (Negative)
[2023-07-17 20:45] LABS: Source Nasopharynx
--- NOTE | 2023-07-17 20:45 | DI.RAD_ITS ---
Exam(s) XR CHEST 2V PA LATERAL EXAM: XR CHEST 2V PA LATERAL CLINICAL HISTORY: cough TECHNIQUE: 2D digital imaging was performed. COMPARISON: CR XR CHEST 2V PA LATERAL from 12/09/2022 FINDINGS: Lateral view limited by poor pulmonary inflation. HEART: Normal size. Aorta: Not dilated. PULMONARY VASCULATURE: Normal. LUNGS: Clear on PA view. Increased densities of of lung bases on lateral view may reflect atelectasi s. PLEURAL SPACE: No pleural effusion or pneumothorax. BONE:Unremarkable for age. Soft tissues: Unremarkable. IMPRESSION: No acute abnormality. DATA REPOSITORY: RADIATION DOSE DELIVERED:
[2023-07-17 20:50] LABS: D-Dimer 679 ng/mlFEU (<500)
[2023-07-17 20:57] LABS: Procalcitonin < 0.1 ng/mL
--- NOTE | 2023-07-17 22:00 | DI.VRAD_ITS ---
PROCEDURE INFORMATION: Exam: XR Chest Exam date and time: 07/17/2023 9:44 PM Age: 77 years old Clinical indication: Cough TECHNIQUE: Imaging protocol: Radiologic exam of the chest. Views: 2 views. COMPARISON: CR XR CHEST 2V PA LATERAL 12/09/2022 11:02 AM FINDINGS: Lungs: Clear lungs. Pleural spaces: No pneumothorax. No sizable pleural effusion. Heart/Mediastinum: No cardiomegaly. Bones/joints: Unremarkable. IMPRESSION: Clear lungs. Dictated and Authenticated by: Noam Light MD. Ordering:JACY Arellano MD
[2023-07-17 22:14] VITALS: BP 141/83; PULSE 110; RESP 18; TEMP 37.2; O2SAT 97
[2023-07-17 22:19] VITALS: BP 135/88; PULSE 87; RESP 16; TEMP 36.8; O2SAT 94
[2023-07-17 22:21] VITALS: BP 135/88; PULSE 87; RESP 16; TEMP 36.8; O2SAT 94
== END 2023-07-17 22:21 | disposition home or self-care (01) ==
PROVIDERS: Emergency Provider Physician Assistant; PCP Nurse Practitioner Family
DX: J06.9 Acute upper respiratory infection, unspecified (principal); I25.10 Atherosclerotic heart disease of native coronary artery without angina pectoris; E78.5 Hyperlipidemia, unspecified; Z11.52 Encounter for screening for COVID-19
CPT/HCPCS: 36415; 80053; 83690; 84145; 87637; 99284; 71046; 83605; 85025; 85379

== ENCOUNTER 2024-03-06 11:38 | Outpatient (CLI) | payer MEDICARE, SELFPAY ==
--- NOTE | 2024-03-06 09:15 | DI.RAD_ITS ---
Exam(s) XR HIP LT AP LAT ONLY XR HIP RT AP LAT ONLY EXAM: XR HIP RT AP LAT ONLY CLINICAL HISTORY: ANNUAL F/U R SANTOS. TECHNIQUE: 2D digital imaging was performed. Two views of both hips COMPARISON: CR XR HIP PELVIS ADULT BL from 03/15/2023 CR XR HIP LT AP LAT ONLY from 03/06/2024 FINDINGS: BONES: No acute fracture is present. No bony destructive lesion is seen. Stable appearance of bilat eral hip prostheses. JOINTS: No dislocation present. Mild degenerative changes of the SI joints. SOFT TISSUE: Normal. IMPRESSION: No acute abnormality. Stable appearance of bilateral hip prostheses. DATA REPOSITORY: RADIATION DOSE DELIVERED:
== END 2024-03-06 11:39 | disposition home or self-care (01) ==
LOC: DIORS 11:38
PROVIDERS: PCP Nurse Practitioner Family; Visit Provider Student in an Organized Health Care Education/Training Program
DX: Z47.1 Aftercare following joint replacement surgery (principal); Z96.641 Presence of right artificial hip joint; Z96.642 Presence of left artificial hip joint
CPT/HCPCS: 99213; 73502

== ENCOUNTER 2024-05-18 02:26 | Outpatient (CLI) | payer MEDICARE, SELFPAY ==
--- NOTE | 2024-05-18 | DI.RAD_ITS ---
Exam(s) XR KNEE RT 3V AP,LAT,GUY EXAM: XR KNEE RT 3V AP,LAT,GUY CLINICAL HISTORY: RT KNEE PAIN,M25.561. TECHNIQUE: 2D digital imaging was performed. Three views. COMPARISON: CR XR KNEE LT 3V AP,LAT,GUY from 05/18/2024 FINDINGS: BONES: No acute fracture is present. No bony destructive lesion is seen. JOINTS: Moderate narrowing of the lateral femoral tibial joint space with periarticular spurring. Sp urring also seen at the medial femoral tibial joint. Minimal spurring at the patellofemoral joint. A minimal joint effusion is seen. SOFT TISSUE: Prominent venous varicosities. IMPRESSION: Moderate degenerative changes of the lateral femoral tibial joint. Prominent venous varicosities. DATA REPOSITORY: RADIATION DOSE DELIVERED:
--- NOTE | 2024-05-18 11:01 | DI.RAD_ITS ---
Exam(s) XR KNEE LT 3V AP,LAT,GUY EXAM: XR KNEE LT 3V AP,LAT,GUY CLINICAL HISTORY: LT KNEE PAIN. TECHNIQUE: 2D digital imaging was performed. Three views. COMPARISON: CR KNEES BILAT AP STANDING from 11/19/2016 FINDINGS: BONES: No acute fracture is present. No bony destructive lesion is seen. JOINTS: The joint spaces are maintained. Mild periarticular spurring. Faint chondrocalcinosis. The knee is normally aligned. Question of small joint effusion.. SOFT TISSUE: Medial venous varicosities. IMPRESSION: Mild degenerative changes. DATA REPOSITORY: RADIATION DOSE DELIVERED:
== END 2024-05-18 02:46 ==
PROVIDERS: PCP Nurse Practitioner Family; Visit Provider Nurse Practitioner Family
DX: M25.562 Pain in left knee (principal); M17.12 Unilateral primary osteoarthritis, left knee
CPT/HCPCS: 73562

== ENCOUNTER → 2024-07-03 10:10 | Outpatient (BNVA) | payer MEDICARE, SELFPAY | PROVIDERS: PCP Nurse Practitioner Family; Referring Provider Nurse Practitioner Family | DX: M17.11 Unilateral primary osteoarthritis, right knee (principal); M17.12 Unilateral primary osteoarthritis, left knee | CPT/HCPCS: 20610; J1010 ==

== ENCOUNTER 2024-07-03 15:29 | Outpatient (REF) | payer MEDICARE, SELFPAY ==
[2024-07-03 16:29] LABS: Abs Immature Grans 0.02 10^3/uL (0.0-0.06); Absolute Basophil Count 0.04 10^3/uL (0.0-0.2); Absolute Eosinophil Count 0.12 10^3/uL (0.0-0.7); Absolute Lymphocyte Count 1.29 10^3/uL (1.2-3.4); Absolute Monocyte Count 0.25 10^3/uL (0.1-0.8); Absolute Neutrophil Count 2.57 10^3/uL (1.2-6.7); Basophils % 0.9 %; Eosinophils % 2.8 %; HCT 40.3 % (36.0-46.0); HGB 13.6 g/dL (11.2-15.7); Immature Grans % 0.5 %; Lymphocytes % 30.1 %; MCH 32.7 pg (27.0-33.0); MCHC 33.7 % (32.0-36.0); MCV 97 fL (80-95); MPV 9.6 fL (8.0-11.0); Monocytes % 5.8 %; Neutrophils % 59.9 %; Platelet Count 247 10^3/uL (130-400); RBC 4.16 10^6/uL (3.93-5.22); RDW 12.1 % (11.7-14.6); RDW-SD 43.3 fL; WBC 4.29 10^3/uL (4.4-10.8)
[2024-07-03 17:08] LABS: ALT 30 U/L (14-59); AST 30 U/L (15-37); Albumin 4.1 g/dL (3.4-5.0); Alkaline Phosphatase 80 U/L (46-116); Anion Gap 8.1 mmol/L (3-11); BUN 16 mg/dL (7-18); Bilirubin, Total 0.52 mg/dL (0.2-1.0); CO2 30.9 mmol/L (21.0-32.0); Calcium 9.6 mg/dL (8.5-10.1); Calculated LDL 91 mg/dL (<100); Chloride 105 mmol/L (98-107); Cholesterol 182 mg/dL (<200); Estimated GFR 57.31 (mL/min/1.73m2); Glucose 96 mg/dL (74-106); HDL Cholesterol 74 mg/dL (40-60); Potassium 4.7 mmol/L (3.5-5.1); Sodium 144 mmol/L (136-145); Triglyceride 86 mg/dL (<150)
[2024-07-10 09:01] LABS: Misc Referral (MAYO) See Comments
== END 2024-07-03 15:30 | disposition home or self-care (01) ==
LOC: NCHCN 15:29
PROVIDERS: PCP Nurse Practitioner Family; Visit Provider Nurse Practitioner Family
DX: E78.5 Hyperlipidemia, unspecified (principal); D72.819 Decreased white blood cell count, unspecified
CPT/HCPCS: 80053; 80061; 82379; 85025

== ENCOUNTER 2024-07-14 00:22 | Outpatient (CLI) | payer MEDICARE, SELFPAY ==
--- NOTE | 2024-07-14 | DI.MAMMO_ITS ---
Exam(s) MAMMO SCREENING EXAM: MAMMO SCREENING CLINICAL HISTORY: Screening, Z12.31 TECHNIQUE: Mammograms were interpreted according to the usual protocol including computer analysis w [employer] CAD system, tomosynthesis and C-view imaging. COMPARISON: 2014 through 2023 FINDINGS: The breasts are composed of scattered fibroglandular densities, Breast Density category B. No suspicious masses or suspicious microcalcifications are seen. An island of dense tissue in the up per outer quadrant of the left breast appears unchanged over time. No skin thickening or abnormal axillary lymph nodes are seen. There has been no significant change from prior exams. IMPRESSION: BI-RADS Category 1, Negative mammogram Yearly screening mammography is recommended. Breast Density - Category B, scattered fibroglandular densities. A negative radiographic report should not delay biopsy if a dominant or clinically suspicious mass is present. Up to ten percent of cancers are not identified on mammography. A negative report may reinforce clinical impression. Adenosis and dense breasts may obscure an underlying neoplasm. False positive reports average 6 to 10%. Patient will receive a letter notifying them of these results.
== END 2024-07-14 00:42 ==
PROVIDERS: PCP Nurse Practitioner Family; Visit Provider Nurse Practitioner Family
DX: Z12.31 Encounter for screening mammogram for malignant neoplasm of breast (principal); R92.323 Mammographic fibroglandular density, bilateral breasts
CPT/HCPCS: 77063; 77067

== ENCOUNTER 2024-07-27 02:59 | Outpatient (CLI) | payer MEDICARE, SELFPAY ==
--- NOTE | 2024-07-27 | DI.DEXA_ITS ---
Exam(s) XR DEXA BONE DENSITY W/WO CASEY EXAM: XR DEXA BONE DENSITY W/WO CASEY CLINICAL HISTORY: Asymptomatic menopausal state, Z78.0 TECHNIQUE: Routine DEXA evaluation of the lumbar spine, hip, or forearm. COMPARISON: CR XR DEXA BONE DENSITY W/WO CASEY from 04/23/2021 FINDINGS: Performed on a [employer] unit. Lateral image: No compression fracture evident. Lumbar Spine total T-score: -0.8. This is in normal range. Hip total T-score:Not performed. Bilateral hip prostheses. Forearm total T-score: -0.3. This is also within normal range IMPRESSION: Bone mineral density measures in the normal range. Fracture risk is low Note: Any spine fracture indicates 5x risk for subsequent spine fracture and 2x risk for subsequent h ip fracture. World Health Organization criteria for BMD interpretation classify patients: Normal...... T- Score at or above -1.0 Osteopenic... T- Score between -1.0 and -2.5 Osteoporosis... T-Score at or below -2.5
== END 2024-07-27 03:19 ==
LOC: DI 02:59
PROVIDERS: PCP Nurse Practitioner Family; Visit Provider Nurse Practitioner Family
DX: Z78.0 Asymptomatic menopausal state (principal); Z13.820 Encounter for screening for osteoporosis
CPT/HCPCS: 77080

== ENCOUNTER 2024-08-07 21:06 | Outpatient (REF) | payer MEDICARE, SELFPAY | END 2024-08-07 21:07 | disposition home or self-care (01) | LOC: NCHCN 21:06 | PROVIDERS: PCP Nurse Practitioner Family; Visit Provider Family Medicine | DX: N39.0 Urinary tract infection, site not specified (principal) | CPT/HCPCS: 87077; 87086; 87186 ==

== ENCOUNTER 2024-11-29 02:39 | Outpatient (CLI) | payer MEDICARE, SELFPAY ==
[2024-11-29 13:23] LABS: Abs Immature Grans 0.02 10^3/uL (0.0-0.06); Absolute Basophil Count 0.04 10^3/uL (0.0-0.2); Absolute Eosinophil Count 0.06 10^3/uL (0.0-0.7); Absolute Monocyte Count 0.32 10^3/uL (0.1-0.8); Absolute Neutrophil Count 2.93 10^3/uL (1.2-6.7); Basophils % 0.8 %; Eosinophils % 1.2 %; HCT 39.1 % (36.0-46.0); HGB 13.2 g/dL (11.2-15.7); Immature Grans % 0.4 %; Lymphocytes % 34.8 %; MCH 32.7 pg (27.0-33.0); MCHC 33.8 % (32.0-36.0); MCV 97 fL (80-95); MPV 8.4 fL (8.0-11.0); Monocytes % 6.2 %; Neutrophils % 56.6 %; Platelet Count 244 10^3/uL (130-400); RBC 4.04 10^6/uL (3.93-5.22); RDW 11.9 % (11.7-14.6); RDW-SD 42.5 fL; WBC 5.17 10^3/uL (4.4-10.8)
[2024-11-29 13:25] LABS: Bilirubin Negative (Negative); Blood Negative (Negative); Clarity Clear (Clear); Glucose Negative (Negative); Ketones Negative (Negative); Leukocyte Esterase Negative (Negative); Nitrite Negative (Negative); Specific Gravity 1.025 (1.005-1.025); Urobilinogen 0.2 mg/dL (Up to 0.2); pH 5.5 (5-8)
[2024-11-29 13:59] LABS: ALT 27 U/L (14-59); AST 26 U/L (15-37); Alkaline Phosphatase 82 U/L (46-116); Amylase 62 U/L (25-115); BUN 19 mg/dL (7-18); Bilirubin, Total 0.5 mg/dL (0.2-1.0); CREATININE 0.9 mg/dL (0.55-1.02); Calcium 9.7 mg/dL (8.5-10.1); Chloride 100 mmol/L (98-107); Estimated GFR 64.63 (mL/min/1.73m2); Glucose 96 mg/dL (74-106); Lipase 55 U/L (<78); Potassium 3.8 mmol/L (3.5-5.1); Sodium 140 mmol/L (136-145); Total Protein 7.5 g/dL (6.4-8.2)
== END 2024-11-29 02:40 | disposition home or self-care (01) ==
LOC: LBO 02:40
PROVIDERS: PCP Nurse Practitioner Family; Visit Provider Nurse Practitioner Family
DX: R10.31 Right lower quadrant pain (principal)
CPT/HCPCS: 36415; 80053; 83690; 81003; 82150; 85025

== ENCOUNTER → 2024-12-14 07:57 | Outpatient (BNVA) | payer MEDICARE, SELFPAY | PROVIDERS: PCP Nurse Practitioner Family; Referring Provider Nurse Practitioner Family; Visit Provider Physician Assistant | DX: M17.0 Bilateral primary osteoarthritis of knee (principal) | CPT/HCPCS: 20610; J1010 ==

== ENCOUNTER 2024-12-22 00:20 | Outpatient (CLI) | payer MEDICARE, SELFPAY ==
--- NOTE | 2024-12-22 | DI.US_ITS ---
Exam(s) US ABD PELV TRANSVAG NON-OB EXAM: US ABD PELV TRANSVAG NON-OB CLINICAL HISTORY: RT LOWER QUAD ABD PAIN RT, R10.31, PAIN NEAR BELLY BUTTON TO RT TECHNIQUE: Ultrasound abdomen performed using standard protocol. COMPARISON: CT CT CHEST PE ABD PELVIS W from 06/17/2022 US US PELVIS from 07/17/2022 FINDINGS: ABDOMEN ABDOMINAL AORTA AND IVC: Visualized portions normal caliber. PANCREAS: Normal where visualized. LIVER: Normal. Hepatopetal flow in the Portal Vein. No evidence of a hepatic mass. The liver measures 16.1cm long. GALLBLADDER:No evidence of cholelithiasis. No evidence of wall thickening. No pericholecystic fluid identified. BILIARY SYSTEM: Common bile duct measures < 7 mm. No intrahepatic biliary ductal dilation. TORRE'S SIGN: Negative. KIDNEYS: Kidneys are symmetric in size. No evidence of renal calculi. No evidence of hydronephrosis. No renal mass or cyst identified. SPLEEN: Not enlarged. ASCITES: None seen. Urinary bladder: The prevoid urinary bladder volume was 116 cc. The postvoid urinary bladder volume was 11 cc. There is again seen a right cul remnant in the anterior superior aspect of the urinary bladder. The bladder wall is unremarkable. Both ureteral jets were visualized. PELVIC: UTERUS: Position: Anteverted. Size: 6.8 long by 3.0 AP by 4.0 transverse cm Endometrium: 0.9 cm. The endometrial stripe is homogeneously thickened. It is unchanged compared to the examination from 07/17/2022. Myometrium: Unremarkable. Cervix: There are calcifications seen in the cervical region. These can be visualized faintly on the CT scan from 06/17/2022. OVARIES: The right ovary was not visualized on this examination. Left: 4.8 x 4.6 x 4.1 cm Cyst or mass: There are 2 cysts seen on the left ovary. There is a 3.4 x 2.9 x 3.1 cyst. It is simple. It shows no significant change. There is a 2nd cyst measuring 2.4 x 1.6 x 1.9 cm. It is also simple. DOPPLER: Color: Symmetric and uniform flow to both ovaries. No hyperemia. CUL-DE-SAC: Free fluid: None. IMPRESSION: 1. Unremarkable abdominal ultrasound. 2. Thickened homogeneous endometrial stripe at 0.9 cm. This is unchanged compared to the prior examination from 07/17/2022. 3. Two cysts seen on the left ovary. The previously noted 3.4 cm simple cyst is stable. There is a new 2nd 2.4 cm simple cyst on the left ovary. Follow-up as clinically appropriate. DATA REPOSITORY:
== END 2024-12-22 00:40 ==
PROVIDERS: PCP Nurse Practitioner Family; Visit Provider Nurse Practitioner Family
DX: R10.31 Right lower quadrant pain (principal); N83.201 Unspecified ovarian cyst, right side
CPT/HCPCS: 76700; 76830; 76856

== ENCOUNTER 2025-04-20 03:17 | Outpatient (CLI) | payer MEDICARE, SELFPAY ==
--- NOTE | 2025-04-20 | DI.US_ITS ---
APPROVED REPORT EXAM: Comprehensive 2D, Doppler, and color-flow Echocardiogram Patient Location: [facility] Supervisor: Paige Reyes RDCS (AE) Indications: Ascending aorta dilation Other Information Study Quality: Adequate Conclusion Normal left ventricular wall thickness and chamber size. Ejection fraction is 55%. Wall motion is normal Normal right ventricular size and function Both atria are normal in size. There is an incidental finding of an atrial septal aneurysm There are no structural valvular abnormalities Trace aortic and mitral regurgitation Mild tricuspid regurgitation. Estimated right ventricular systolic pressure is 37 mmHg Mildly dilated ascending aorta measuring 3.8 cm Wall motion Left Ventricle The left ventricle is normal size. The left ventricular systolic function is normal. The left ventricular ejection fraction is within the normal range. There is normal left ventricular wall thickness. There is normal LV segmental wall motion. There is no ventricular septal defect visualized. LVEF is 55%. Right Ventricle The right ventricle is normal size. The right ventricular systolic function is normal. Atria The left atrium size is normal. The right atrium size is normal. Atrial septal aneurysm is present. Aortic Valve The aortic valve is normal in structure. Aortic valve is trileaflet. There is no aortic valvular stenosis. Trace aortic regurgitation. Mitral Valve The mitral valve is normal in structure. No evidence of mitral valve stenosis. Trace mitral regurgitation. Tricuspid Valve The tricuspid valve is normal in structure. There is no tricuspid valve stenosis. Mild tricuspid regurgitation. The RVSP is 36.6 mmHg. Pulmonic Valve The pulmonary valve is normal in structure. There is no pulmonic valvular stenosis. Mild pulmonic regurgitation. Great Vessels The aortic root is normal in size. The ascending aorta is mildly dilated. Aortic arch is normal in caliber. IVC is normal in size and collapses >50% with inspiration. Pericardium There is no pericardial effusion. 2D Dimensions IVSD d PLAX 0.90 cm F: 0.6-1.0 Ao Root d 3.09 cm F: 2.7 - 3.3 LVPW d PLAX 0.90 cm F: 0.6 - 1.0 Ao Asc Diam d 3.80 cm F: 2.3 - 3.1 LVID d PLAX 4.34 cm F: 3.8 - 5.2 LVDs 3.20 cm F: 2.2 - 3.5 LV EF Teichholz 53.2 % FS 27.16 % LV EDV (Teich) 84.7 mL LV ESV (Teich) 39.7 mL M-Mode TAPSE 1.79 cm (M/F) >1.7 Auto EF LV EDV A4C 90.7 mL LV EDV A2C 79.6 mL LV EDV BP 86.1 mL LV ESV A4C 45.1 mL LV ESV A2C 39.4 mL LV ESV BP 42.5 mL LVEF(%) A4C 50.2 % LVEF(%) A2C 50.5 % LVEF(%) BP 50.7 % LV SV A4C 45.6 ml LV SV A2C 40.2 ml LV SV BP 43.6 ml LV CO A4C 3.3 L/min LV CO A2C 2.7 L/min LV CO BP 3.0 L/min HR A4C 72.12 BPM HR A2C 67.27 BPM LV EDV Index (BP) LA Volume LA Length A4C 4.8 cm LA Length A2C 5.0 cm LA Area A4C s 14.60 cm2 LA Area A2C s 14.85 cm2 LA Vol A4C A-L 37.83 mL LA Vol A2C A-L 37.38 mL LA Vol Biplane A-L 38.5 mL LA Vol/BSA A4C A-L LA Vol/BSA A2C A-L LA Vol/BSA BP A-L 21.9 mL/m2 LA Vol A4C MOD 34.1 mL LA Vol A2C MOD 33.0 mL LA Vol BP MOD 34.2 mL RA Volume RA Area A4C 15.0 cm2 RA ESV A4C (A-L) 39.5mL RA Vol/BSA A4C A-L RA Length A4C 4.8 cm RA ESV A4C (MOD) 37.3mL LV Diastology MV E' medial 0.056 (>0.07 m/s) MV E Vmax 0.64 (0.4-1.3 m/s) MV E/E' MED 11.36 (<14) MV A Vmax 1.00 (0.4-1.3 m/s) MV E' lateral 0.062 (>0.1 m/s) E/A Ratio 0.6 MV E/E' LAT 10.37 (<14) MV E' Average 0.059 m/s MV E/E'(average) 10.84 Aortic Valve AoV Vmax 1.17 m/s LVOT Vmax 0.96 m/s AoV Peak Grad 19.6 mmHg LVOT Peak Grad 3.7 mmHg AoV Area (Vmax) 2.49 cm2 LVOT VTI 0.247 m AoV VTI 0.287 m LVOT Mean Grad 2.0 mmHg AoV Mean Ajith. 0.82 m/s LVOT SV 75.26 mL AoV Mean Grad 3.0 mmHg LVOT Diam s 1.95 cm AoV Area (VTI) 2.63 cm2 AV Regurg Peak Gr. 5.49 mmHg Velocity Ratio 0.82 AR Decel [place] 0.5m/sec2 AR DT 5859 msec AR PHT 1699 msec AR Vmax 2.90 m/s Mitral Valve MV DT 275 (160-240 msec) MV Vmax TIPS 0.88 m/s MV Mean Grad 1.1 (<2mmHg) MV VTI 0.254 m Pulmonary Valve PV Vmax 0.68 (0.5-1.5 m/s) RVOT Vmax 0.52 m/s PV Peak Grad 1.9 mmHg RVOT Peak Gr. 1.1 mmHg PV Mean Ajith 0.49 m/s RVOT VTI 0.113 m PV Mean Grad 1.0 mmHg RVOT Mean Gr. 0.7 mmHg Tricuspid Valve RA Pressure 3.00 mmHg TR Vmax 2.90 m/s TV S' 0.11 m/s TR Peak Grad 33.6 mmHg RVSP (TR) 36.6 mmHg
== END 2025-04-20 03:37 ==
LOC: DI 03:17
PROVIDERS: PCP Nurse Practitioner Family; Visit Provider Nurse Practitioner Family
DX: I77.810 Thoracic aortic ectasia (principal); I08.2 Rheumatic disorders of both aortic and tricuspid valves
CPT/HCPCS: 93306

== ENCOUNTER 2025-04-26 07:21 | Emergency (ER) | payer MEDICARE, SELFPAY ==
[2025-04-26] VITALS (36 sets, daily range): BP systolic 136–177; BP diastolic 60–117; PULSE 57–89; RESP 5–30; TEMP 36.8; O2SAT 90–98
--- NOTE | 2025-04-26 07:30 | RT.EKG_ITS ---
APPROVED REPORT Exam: Resting ECG Reason for Exam: HTN Patient Location: E HR:76 bpm ECG Measurements Heart Rate 76 AXIS GA 163 P 54 QRSd 90 QRS 11 QT 369 T 40 QTc 417 Conclusion Sinus rhythm...normal P axis, V-rate 60- [address] dep laterally, unchanged
--- NOTE | 2025-04-26 08:00 | DI.CT_ITS ---
Exam(s) CT BRAIN NECK CTA EXAM: CT BRAIN NECK CTA CLINICAL HISTORY: left occipital WALLER, right facial droop, ?cva/bleed. TECHNIQUE: Imaging Protocol: Axial CT angiography was performed with multi- slice acquisition and multi-planar and/or 3D reconstructions. CONTRAST MATERIAL: Intravenous: Omnipaque 350 Contrast volume:structured data in ml COMPARISON: CT CT BRAIN NECK CTA from 01/17/2023 FINDINGS: CTA Neck W: Aortic arch anatomy: The aortic arch anatomy is conventional and there is no significant stenosis at the origin of the great vessels off of the aortic arch. No intimal flap evident. Anterior circulation: Both common carotid arteries ascend with normal luminal diameters. At the level the carotid bulbs and proximal internal carotid arteries there is minimal plaque without hemodynamically significant stenosis evident on either side. The upper left internal carotid artery is tortuous in the upper neck prior to entering the skull base-carotid canal. The right internal carotid artery is tortuous in the upper neck but without significant stenosis.. Posterior circulation: There is independent origin of the left vertebral artery off of the aortic arch. The dominant right vertebral artery originates in conventional fashion off of the right subclavian artery. There is no stenosis at its origin and it ascends with luminal diameter of 6 mm in the foramen transversarium. The non dominant left vertebral artery ascends with a luminal diameter of 3 mm. Both vertebral arteries contribute to the formation of the basilar artery at the skull base. CTA Brain W: Anterior circulation: Both internal carotid arteries are patent in the skull base-carotid canals as well as within the cavernous sinuses. They are quite tortuous within the cavernous sinuses but without significant stenosis. Supraclinoid aspects of the internal carotid arteries are patent. The left A1 segment is dominant. Both anterior cerebral arteries are patent and there is no evidence of aneurysm at the level the anterior communicating artery. Both middle cerebral arteries are patent with no evidence of significant stenosis nor intraluminal thrombus. There also no aneurysms of these vessels. Posterior circulation: The basilar artery ascends without significant stenosis. Distally gives off patent superior cerebellar arteries and above this level terminates as patent bilateral posterior cerebral arteries. zx There is no evidence of aneurysm at the tip of the basilar artery nor elsewhere in the [id number]. CT BRAIN: There is no evidence of intracranial hemorrhage, mass effect, or shift of midline structures. There are no extra-axial fluid collections. Ventricles are not enlarged or shifted. There are no ring enhancing lesions in the brain and no abnormal meningeal enhancement. Mucosal thickening noted in the maxillary sinuses. Other paranasal sinuses are clear. Orbits: Evidence of prior bilateral cataract surgery. IMPRESSION: 1. Patent carotid arteries in the neck. No hemodynamically significant stenosis. No dissection 2. Patent vertebral arteries. Right vertebral artery is dominant. Left vertebral artery originates as an independent vessel off the aortic arch 3. Patent intracranial arteries. No significant stenosis nor intraluminal thrombosis. No aneurysms. 4. No acute intracranial findings. Report called by myself to ER 04/26/2025 9:26 a.m. RADIATION DOSE DELIVERED: 2,005.21mGy.cm Total DLP DATA REPOSITORY: All CT scans at this facility are submitted to the National Radiology Data Registry (NRDR) Dose Index Registry (DIR) with the [employer] (A[employer]). RADIATION OPTIMIZATION: All CT scans at this facility use at least one of these dose optimization techniques: automated exposure control; mA and/or kV adjustment per patient size (includes targeted exams where dose is matched to clinical indication); or iterative reconstruction.
[2025-04-26 08:12] LABS: Abs Immature Grans 0.01 10^3/uL (0.0-0.06); HCT 38.3 % (36.0-46.0); HGB 12.8 g/dL (11.2-15.7); Immature Grans % 0.3 %; MCH 31.8 pg (27.0-33.0); MCHC 33.4 % (32.0-36.0); MCV 95 fL (80-95); MPV 8.8 fL (8.0-11.0); Platelet Count 230 10^3/uL (130-400); RBC 4.03 10^6/uL (3.93-5.22); RDW 12.0 % (11.7-14.6); RDW-SD 41.7 fL; WBC 3.97 10^3/uL (4.4-10.8)
[2025-04-26] MEDS: Normal Saline Flush 10 ML SYR IVP (08:41)
[2025-04-26] MEDS: Normal Saline - Diluent 50 ML VIAL IJ (08:41)
[2025-04-26] MEDS: Omnipaque 350 MG/ML 500 ML BTL-Imaging package IJ (08:43)
--- NOTE | 2025-04-26 08:51 | W.ED.GENAD ---
Discharge Plan Disposition Patient Disposition: Home Discharge Details Clinical Impression: Fuchs palsy, Weakness on right side of face, Hypertension Primary Care Provider: Nicolle Price ED Provider: Yosi Hewitt Home Meds and New Rx's Prescriptions: New prednisone 20 mg tablet 60 mg PO DAILY 6 Days Qty: 18 0RF doxycycline hyclate 100 mg tablet 100 mg PO BID Qty: 41 0RF Continued ibuprofen 200 mg tablet 200 mg PO Q6H PRN multivitamin [Daily Multi-Vitamin] 1 EACH tablet 1 tab PO DAILY metoprolol succinate 50 mg tablet extended release 24 hr 50 mg PO DAILY Patient Comments: TK 1 T PO QD atorvastatin 40 mg tablet 20 mg PO HS Patient Comments: TK 1 T PO HS Discharge Instructions Instructions: Fuchs's palsy, High Blood Pressure ED Additional Instructions: There is concern that you may have Lyme disease. A panel of labs for tickborne disease including Lyme disease is pending at time of discharge. Results should be available next week. You have been started on doxycycline empirically to treat potential Lyme disease. Please take as prescribed. This may be discontinued if Lyme testing is negative. You are being treated for Fuchs's palsy with a 1 week course of prednisone. Your blood pressure was elevated today. Please be sure to monitor this twice daily over the next 2 weeks. Keep a log. Be sure to discuss blood pressure with your primary care physician. Additional outpatient diagnostic testing and treatment may be necessary including change of blood pressure medicine. Please call your doctor to arrange timely follow-up for early next week. Return to the ER immediately for any worsening or new concerning symptoms. Referrals: Nicolle Price [Primary Care Provider, Medicine] HPI General Mode of arrival: ambulatory. Date/Time Provider Initiated Documentation: 04/26/25 07:26. Limitations to Documentation: no limitations. Information obtained by: patient. HPI Narrative: HISTORY OF PRESENT ILLNESS This is an 79-year-old female with a history of ventricular tachycardia presenting with a headache. She sought medical attention from her primary care provider a couple of weeks ago due to persistent pressure behind her left ear, which began 2 weeks prior. She describes an unusual sensation in her head, pinky to a squishy feeling between her ears, particularly noticeable when she wakes up at night. This sensation is not associated with pain or an irregular heartbeat. She also reports a slight droop on the right side of her mouth, first noticed a week ago. The pain behind her ear is described as more annoying than severe, and it has been intermittent over the past few weeks. This morning, she experienced a frontal headache that woke her up between 5:00 and 6:00 AM, but it has since subsided without any medication. She does not typically experience headaches. She continues to feel the pressure behind her left ear and has noticed occasional visual disturbances in both eyes. She reports no weakness or numbness in any specific area. She wears bifocal glasses, and her eyes have been corrected for distance vision. She reports no abdominal pain. She has not seen any ticks around her house since 12/2024. She has her ear wax removed annually and reports no ear pain. She had an ultrasound last week for ascending aortic dilation. Patient denies chest pain. Her blood pressure was significantly elevated upon arrival, although it was around 120 systolic during her appointment 2 weeks ago. She is currently on metoprolol and atorvastatin, and she took her dose of metoprolol this morning. Patient has had tick bites over the past few months. PAST SURGICAL HISTORY: She had bilateral hip replacement 2 years ago. Related Data Home Medications Medication Instructions Recorded Confirmed multivitamin (Daily Multi-Vitamin 1 tab PO DAILY 05/20/15 04/26/25 tablet) atorvastatin 40 mg tablet 20 mg PO HS 03/30/20 04/26/25 metoprolol succinate 50 mg 50 mg PO DAILY 03/30/20 04/26/25 tablet,extended release 24 hr ibuprofen 200 mg tablet 200 mg PO Q6H PRN 07/03/24 04/26/25 doxycycline hyclate 100 mg tablet 100 mg PO BID #41 tabs 04/26/25 prednisone 20 mg tablet 60 mg (3 x 20 mg) PO DAILY 6 days 04/26/25 #18 tabs Previous Rx's Medication Instructions Recorded doxycycline hyclate 100 mg tablet 100 mg PO BID #41 tabs 04/26/25 prednisone 20 mg tablet 60 mg (3 x 20 mg) PO DAILY 6 days 04/26/25 #18 tabs Allergies Allergy/AdvReac Type Severity Reaction Status Date / Time acetaminophen (From Kenn) AdvReac neuropathy Verified 04/26/25 07:37 chlorpheniramine (From AdvReac neuropathy Verified 04/26/25 07:37 Kenn) oxymetazoline HCl (From AdvReac neuropathy Verified 04/26/25 07:37 Kenn) pheniramine maleate (From AdvReac neuropathy Verified 04/26/25 07:37 Kenn) phenylephrine HCl (From AdvReac neuropathy Verified 04/26/25 07:37 Kenn) pseudoephedrine HCl (From AdvReac neuropathy Verified 04/26/25 07:37 Kenn) General Stated Complaint: Headache EZEQUIEL: 3 Review of Systems All systems reviewed & are unremarkable except as noted in HPI and below Constitutional Constitutional: Denies fever(s) Cardiovascular Cardiovascular: Denies chest pain Exam Const General: cooperative and no acute distress HENMT Ears: TM normal on the left Mouth: moist mucous membranes Eyes Conjunctivae: normal conjunctivae Sclera: normal sclerae EOM: EOM intact bilaterally Neck Neck: trachea midline and supple Resp Auscultation: clear to auscultation bilaterally, no rales, no rhonchi and no wheezes Cardio Rate: regular rate and not tachycardic Rhythm: regular rhythm GI Palpation: soft, not firm, no guarding, no masses, not rigid and nontender Skin General skin exam: no rashes or lesions noted Neuro General: patient alert, patient awake, patient oriented x3 and tone normal Cognition: normal cognition Speech: speech normal Motor: strength 5/5 throughout Sensory Exam: no sensory deficits noted Other: Right facial droop Extrem General: no edema Psych Appearance: grossly normal Mental Status: mental status grossly normal Speech and Movement: speech and movement normal Course Vital Signs Vital signs: Vital Signs Temperature 36.8 C 04/26/25 07:23 Pulse 80 04/26/25 07:23 Respiratory Rate 16 04/26/25 07:23 Blood Pressure 175/78 H 04/26/25 07:23 Pulse Oximetry 96 04/26/25 07:23 Temperature 36.8 C 04/26/25 07:35 Temperature Source Oral 04/26/25 07:35 Pulse 76 04/26/25 08:20 Pulse 76 04/26/25 08:20 Respiratory Rate 15 04/26/25 08:20 Blood Pressure 175/78 H 04/26/25 07:35 Blood Pressure Mean 104 04/26/25 07:31 Blood Pressure Position Sitting 04/26/25 07:35 Pulse Oximetry 94 04/26/25 08:20 Oxygen Delivery Method Room Air 04/26/25 07:35 Oxygen Flow Rate 0 04/26/25 07:35 Pain Level 2 04/26/25 07:35 Lab/Test Results Lab/Test Results: Laboratory Tests Range/Units 04/26/25 07:51 WBC (4.4-10.8) 10^3/uL 3.97 L RBC (3.93-5.22) 10^6/uL 4.03 Hgb (11.2-15.7) g/dL 12.8 Hct (36.0-46.0) % 38.3 MCV (80-95) fL 95 MCH (27.0-33.0) pg 31.8 MCHC (32.0-36.0) % 33.4 RDW (11.7-14.6) % 12.0 Plt Count (130-400) 10^3/uL 230 MPV (8.0-11.0) fL 8.8 Immature Gran % % 0.3 Neutrophils % % 56.1 Lymphocytes % % 31.7 Monocytes % % 8.1 Eosinophils % % 2.8 Basophils % % 1.0 Nucleated RBC % (0.0-0.3) % 0.0 Absolute Neutrophils (1.2-6.7) 10^3/uL 2.23 Absolute Lymphocytes (1.2-3.4) 10^3/uL 1.26 Absolute Monocytes (0.1-0.8) 10^3/uL 0.32 Absolute Eosinophils (0.0-0.7) 10^3/uL 0.11 Absolute Basophils (0.0-0.2) 10^3/uL 0.04 Sodium Cancelled Potassium Cancelled Chloride Cancelled Carbon Dioxide Cancelled Anion Gap Cancelled BUN Cancelled Creatinine Cancelled Est GFR (CKD-EPI 2020) Cancelled Glucose Cancelled Calcium Cancelled Magnesium Cancelled Total Bilirubin Cancelled AST Cancelled ALT Cancelled Alkaline Phosphatase Cancelled Troponin I Cancelled Total Protein Cancelled Albumin Cancelled Medical Decision Making ASSESSMENT AND PLAN Initial Assessment: 79-year-old female presents with headache and mild right facial droop for the past 1 week. Patient is hypertensive. Facial weakness seems to spare forehead. No meningismus. Differential Diagnosis: - Lyme disease: Tick exposure in summer. Tick panel ordered. - Stroke: Facial droop. CT scan with contrast and potential MRI of brain. - Intracranial aneurysm and hemorrhage - Hypertension emergency: Elevated BP 163/80. Monitor BP, review medication compliance. - Fuchs's palsy ED Course: - Screening EKG was reviewed and interpreted by me: Please report, subtle ST depression noted laterally, unchanged, sinus rhythm 76 bpm, nondiagnostic. - CTA of the brain reviewed and interpreted by radiology:1. Patent carotid arteries in the neck. No hemodynamically significant stenosis. No dissection 2. Patent vertebral arteries. Right vertebral artery is dominant. Left vertebral artery originates as an independent vessel off the aortic arch 3. Patent intracranial arteries. No significant stenosis nor intraluminal thrombosis. No aneurysms. 4. No acute intracranial findings. 1015 -- Plan to proceed to MRI brain. 1150 --MRI of the brain was interpreted by radiology:There few small sub cm foci of signal abnormality in the Trish in supra ventricular white matter consistent with chronic small vessel disease. There is no evidence of restricted diffusion to suggest acute ischemic event(s). Patient reassessed is remained stable. Declined pain medicine. WALLER improved. Blood pressure improved. Suspect Fuchs's palsy, consider secondary to Lyme disease. Plan to initiate treatment with prednisone and doxycycline while tick panel is pending. Plan for close outpatient follow-up. Plan to have patient follow-up with primary care physician. Additional outpatient diagnostic testing and treatment modification may be necessary for hypertension. I spoke with the patient's primary care provider, Nicolle Price, discussed ED presentation course, she will ensure timely outpatient follow-up. Clinical Impression: Fuchs's palsy, possible Lyme disease, hypertension. Disposition: Discharge This document was written with the assistance of HYUN Julien. The patient consented to its use. Lab Data Lab results reviewed: Yes I reviewed the patient's lab results. Labs: Laboratory Tests Range/Units 04/26/25 04/26/25 04/26/25 07:51 08:25 10:00 WBC (4.4-10.8) 10^3/uL 3.97 L RBC (3.93-5.22) 10^6/uL 4.03 Hgb (11.2-15.7) g/dL 12.8 Hct (36.0-46.0) % 38.3 MCV (80-95) fL 95 MCH (27.0-33.0) pg 31.8 MCHC (32.0-36.0) % 33.4 RDW (11.7-14.6) % 12.0 Plt Count (130-400) 10^3/uL 230 MPV (8.0-11.0) fL 8.8 Immature Gran % % 0.3 Neutrophils % % 56.1 Lymphocytes % % 31.7 Monocytes % % 8.1 Eosinophils % % 2.8 Basophils % % 1.0 Nucleated RBC % (0.0-0.3) % 0.0 Absolute Neutrophils (1.2-6.7) 10^3/uL 2.23 Absolute Lymphocytes (1.2-3.4) 10^3/uL 1.26 Absolute Monocytes (0.1-0.8) 10^3/uL 0.32 Absolute Eosinophils (0.0-0.7) 10^3/uL 0.11 Absolute Basophils (0.0-0.2) 10^3/uL 0.04 Sodium Cancelled 141 Potassium Cancelled 4.2 Chloride Cancelled 104 Carbon Dioxide Cancelled 31.8 Anion Gap Cancelled 5.2 BUN Cancelled 13 Creatinine Cancelled 0.9 Est GFR (CKD-EPI 2020) Cancelled 64.63 Glucose Cancelled 88 Calcium Cancelled 10.1 Magnesium Cancelled 2.4 Total Bilirubin Cancelled 0.5 AST Cancelled 26 ALT Cancelled 30 Alkaline Phosphatase Cancelled 83 Troponin I Cancelled 9 10 Total Protein Cancelled 8.0 Albumin Cancelled 4.1 PFSH All Active Problems (Updated 04/26/25 @ 11:57 by Yosi Hewitt MD) Hypertension (Chronic) Weakness on right side of face (Acute) Fuchs palsy (Acute) Bilateral primary osteoarthritis of knee (Acute) Bilateral steroid injection: 12/14/2024 Right knee steroid injection: 07/03/2024 History of total right hip replacement (Acute 03/02/23) History of total left hip replacement (Acute 03/02/23) Endometrial thickening on ultrasound (Acute) Persistent, 8.7 mm stripe on ultrasound 01/16. Previous endometrial sampling, inactive endometrium. Would consider hysteroscopy with dilation and curettage for further evaluation. Left ovarian cyst (Acute) Persistent, septated Lumbago (Acute) Hyperlipidemia (Chronic) CAD (coronary artery disease) (Chronic) Discharge planning issues (Acute) DVT prophylaxis (Acute) Dyslipidemia (Acute) Chest pain (Acute) Medical History Fracture of right tibia and fibula (~1984) treated conservatively Obesity Osteoarthritis Surgical History Adhesive capsulitis of right shoulder (~1988) JERONIMO Hx of vein stripping Bilateral legs [facility] [place] ~ continues to wear compression stockings S/P cardiac cath (2019) Colonoscopy - MAC (05/26/17) Social History Smoking/Tobacco Use Status: Never Smoking risk assessment performed?: Yes Alcohol Intake: current Alcohol Intake frequency: holidays/special occasions only Alcohol type: wine Drug use: Never Substance use type: does not use Housing: house Current gender identity: female Do you feel safe at home: Yes Do you feel safe in your relationship?: Yes Female Reproductive History Menstrual Menopause type: natural History History 2 Para 2 Hx # Term Pregnancies 2 Multiple births Hx # Pregnancies Ectopic pregnancies AB induced Hx Number of Living Children 2 AB spontaneous
[2025-04-26 09:01] LABS: ALT 30 U/L (14-59); AST 26 U/L (15-37); Albumin 4.1 g/dL (3.4-5.0); Alkaline Phosphatase 83 U/L (46-116); Anion Gap 5.2 mmol/L (3-11); BUN 13 mg/dL (7-18); Bilirubin, Total 0.5 mg/dL (0.2-1.0); CO2 31.8 mmol/L (21.0-32.0); Calcium 10.1 mg/dL (8.5-10.1); Chloride 104 mmol/L (98-107); Glucose 88 mg/dL (74-106); Magnesium 2.4 mg/dL (1.8-2.4); Potassium 4.2 mmol/L (3.5-5.1); Sodium 141 mmol/L (136-145); Total Protein 8.0 g/dL (6.4-8.2); Troponin I 9 ng/L (<or=51)
[2025-04-26 10:52] LABS: Troponin I 10 ng/L (<or=51)
--- NOTE | 2025-04-26 11:35 | DI.MRI_ITS ---
Exam(s) MR BRAIN WO EXAM: MR BRAIN WO CLINICAL HISTORY: headache, right facial droop TECHNIQUE: Multiplanar multisequence MRI of the brain was performed. COMPARISON: No exams were available for comparison FINDINGS: CEREBRAL PARENCHYMA: There is no evidence of intracranial hemorrhage, mass effect, or shift of midline structures. There are no extra-axial fluid collections. Ventricles are not enlarged or shifted. No evidence of cerebellar tonsillar ectopia. There is no significant focal signal abnormality in the cerebellar hemispheres nor within the ally, midbrain, and thalami. There few small foci of FLAIR bright signal abnormality in the Trish-supra ventricular white matter, measuring up to 6 mm size and not associated with hemorrhage, surrounding edema, nor restricted diffusion. There is no significant focal signal abnormality evident on diffusion imaging to suggest acute ischemic event. SWI: No evidence of microhemorrhages in the brain. PITUITARY GLAND: No mass nor parasellar abnormality. No obvious abnormality in the cavernous sinuses. FLOW VOIDS: The expected flow void are noted. No evidence of obvious aneurysm nor obvious vascular malformation. Right vertebral artery is dominant at the skull base PARANASAL SINUSES: Mild mucosal thickening is noted in the posterior aspect of the maxillary sinus floors. Other paranasal sinuses are clear as are the mastoid air cells. ORBITS: Evidence of previous bilateral cataract surgery. No acute findings in the orbits. IMPRESSION: There few small sub cm foci of signal abnormality in the Trish in supra ventricular white matter consistent with chronic small vessel disease. There is no evidence of restricted diffusion to suggest acute ischemic event(s). Report called by myself to ER physician 04/26/2025 at 11:32 a.m. DATA REPOSITORY:
[2025-04-26] MEDS: predniSONE 20 MG TAB 60 MG PO (12:00)
[2025-04-26] MEDS: Doxycycline Hyclate 100 MG CAP PO (12:00)
[2025-04-27 10:25] LABS: Lyme Ab w Rflx to Lyme Confirm Negative (Negative)
[2025-04-28 22:47] LABS: B. miyamotoi PCR Negative (Negative); Babesia divergens/MO-1 Negative (Negative); Ehrlichia muris eauclairensis Negative (Negative)
--- NOTE | 2025-04-30 13:18 | NUR.NOTE ---
Access chart to determine the antibiotic on discharge for Lyme test results. Results given to provider. Nursing Note:
== END 2025-04-26 12:16 | disposition home or self-care (01) ==
PROVIDERS: Emergency Provider Student in an Organized Health Care Education/Training Program; PCP Nurse Practitioner Family
DX: R51.9 Headache, unspecified (principal); G51.0 Bell's palsy; I10 Essential (primary) hypertension
CPT/HCPCS: 99284; 99285; 36415; 70496; 70498; 80053; 87798; 93005; 70551; 83735; 84484; 85025; 86618; 93010; J7512

== ENCOUNTER → 2025-05-21 13:43 | Outpatient (BNVA) | payer MEDICARE, SELFPAY | PROVIDERS: PCP Nurse Practitioner Family; Referring Provider Nurse Practitioner Family; Visit Provider Physician Assistant | DX: M17.0 Bilateral primary osteoarthritis of knee (principal) | CPT/HCPCS: 20610; J1010 ==